=== PATIENT | male | born 1955 | race Caucasian/White ===

== ENCOUNTER → 2021-05-03 | Outpatient (CLI) | payer MEDICARE ==
[~2021-05-03] MED LIST: E-Z-GAS II EFFERVESCENT PACKET (SODIUM BICARB./CITRIC ACID/SIMETHICONE) As Ordered ONE; E-Z-HD 98% w/w 340GM SUSP BTL As Ordered ONE; E-Z-PAQUE 96% w/w SUSP 176GM BTL As Ordered ONE
--- NOTE | 2021-05-03 17:17 | REP ---
INDICATION: GERD, DYSPHAGIA. COMPARISON: None TECHNIQUE: This procedure was performed by ANTHONY Pak, under the direct supervision of Dr. Robbins. Images were reviewed with Dr. Robbins prior to dictation. Liquid barium and gas producing crystals were given in the erect position, as well as liquid barium in the prone oblique position in order to perform a double contrast esophagram examination. 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 The superior mediastinal structures are midline. The heart size is within normal limits. The lungs are clear. The oral stage of deglutition was unremarkable. There is minimal penetration of the barium material into the airway. There is a smooth area of esophageal narrowing on the posterior portion of the esophagus. This area of narrowing is towards the distal end of the cervical hardware plate. 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 There no evidence of a hiatal hernia. There are tertiary contractions persistent throughout the whole examination. This is consistent with presbyesophagus. Due to the tertiary contractions the barium material stayed within the esophagus for an extended period of time. The patient was stood upright at the end of the examination and given a drink of water. This cleared the barium material.. IMPRESSION: Smooth area of esophageal narrowing on the posterior portion of the esophagus at the distal and of the cervical hardware. 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 Tertiary contractions persistent throughout the whole examination consistent with presbyesophagus. Correlate clinically 0.7 minutes of fluoroscopy time was utilized for this procedure. Some fluoroscopic images are performed with last image hold technology. These images require no additional radiation. <Electronically signed by Ju Bangura > 05/03/21 1641 <Electronically signed by Jarett Robbins > 05/03/21 1713
== END ==
LOC: M RAD 08:31
PROVIDERS: ATTEND Physician Assistant Medical
DX: K21.9 Gastro-esophageal reflux disease without esophagitis (principal); R13.10 Dysphagia, unspecified

== ENCOUNTER → 2021-05-14 | Outpatient (CLI) | payer MEDICARE ==
[~2021-05-14] MED LIST changes: +ATOR40TA75; -E-Z-GAS II EFFERVESCENT PACKET (SODIUM BICARB./CITRIC ACID/SIMETHICONE) As Ordered ONE; -E-Z-HD 98% w/w 340GM SUSP BTL As Ordered ONE; -E-Z-PAQUE 96% w/w SUSP 176GM BTL As Ordered ONE; +ENAL20TA11; +GABA-282; +HUMA50IN4; +HUMI40IN2; +HYDR-3910; +JARD1TAB3; +LANTINJ4 SQ; +METO50TA7; +TRUL0.5I; +ZOLO100T
== END ==
LOC: M LABSMTC 10:40
PROVIDERS: ATTEND Anesthesiology
DX: Z01.818 Encounter for other preprocedural examination (principal); Z11.52 Encounter for screening for COVID-19

== ENCOUNTER 2021-05-19 06:24 | Day surgery (SDC) | payer MEDICARE ==
[~2021-05-19] VITALS: Ht 177.8 cm; Wt 100.2 kg
[~2021-05-19 06:24] MED LIST changes: +NS 1,000 ML IV ONE
--- OUTSIDE RECORDS SUMMARY | 2021-05-19 06:28 | CCD ---
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 Name Role Phone Rebeca STATON, Gloria Woo Unavailable [phone] Jane STATON, Mayra Santoro PP [phone] Blayne STATON, Wang T Unavailable Unavailable Janay STATON, [facility] Unavailable Unavailable Reason for Referral No Reason for Referral Recorded Problems Includes: Active, inactive, and resolved Problems All Visits Onset Date - Time Resolved Date - Time Provider Co ndition Status Type 2 Diabetes with Diabetic Polyneuropathy 11/09/2020 - 9:10AM Mayra Lara MD Active Diabetes W/ Renal Manifestations Type 2 Persistent Bienvenido roalbuminuria Associated 11/09/2020 - 9:10AM Mayra Lara MD Active Diabetes Mellitus Type 2 with Hyperglycemia 11/09/2020 - 9:09AM Mayra Lara MD Active Gerd 11/09/2020 - 9:10AM Mayra Lara MD A ctive Hypertensive Kidney Disease Benign 11/09/2020 - 11:12AM Mayra Lara MD Active Ankylosing Spondylitis of Lumbosacral Region 02/27/2020 - 8:14AM Mayra Lara MD Active Diabetes with Diabetic Nephropathy 06/12/2017 - 12:00AM Maria Teresa Elkins ANP-BC Active Note: DM dx 2009 Polyneuropathy 06/01/2016 - 12:00AM Maria Teresa Elkins ANP- BC Active Psoriasis 06/01/2016 - 12:00AM Maria Teresa Elkins ANP-BC Active 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); b/l upper extremities s/p neck fx/surg; disabled Osteoarthritis 07/16/2008 - 12:00AM Angle Huber Shambo RP A Active Note: back; pt states "fusio n" from OA Essential Hypertension Benign 04/19/2004 - 12:00AM Sco matthias Samson MD Active Organic Impotence 07/24/2003 - 12:00AM Angle Mayo Shambo RPA Active Depression 01/07/2002 - 12:00AM Angle Mayo Shambo RPA Active Obesity 01/07/2002 - 12:00AM Angle Huber Shambo RPA Active Psoriatic Arthropathy 01/07/2002 - 12:00AM Angle Huber Sh ambo RPA Inactive Note: Enbrel in past; Humira started 2009 Psoriasis Arthropathic 01/07/2002 - 12:00AM Tyler Cancino MD Active Note: r/u [place] Diabetes Mellitus Type 2 - Uncomplicated, Uncontrolled 2 - 12:00AM Maria Teresa Elkins ANP-BC Inactive Note: started rx 2008 Plan of Treatment Future Appointments Date Time Location Provider followup 02/28/2021 8:15AM [facility] Mayra Lara MD Future Tests Order Diagnosis Results Due Ordering Provid er Lab A1C 02/28/21 Mayra quinones MD Lab CMP 02/28/21 Mayra quinones MD Findings Encounter Date Education and counseling Age and gender specific counceling on preventative health discussed with the patient using USPTF and/or ACP guidlines on health maintenance and screening ANNUAL PE-followup with Mayra Lara MD 09/03/2020 Education and counseling Age and gender specific counceling on preventative health discussed with the patient using USPTF and/or ACP guidlines on health maintenance and screening followup with Mayra Lara MD 11/28/2019 Education and counseling Age and gender specific counceling on preventative health discussed with the patient using USPTF and/or ACP guidlines on health maintenance and screening followup with Mayra Lara MD 08/29/2019 Education and counseling Age and gender specific counceling on preventative health discussed with the patient using USPTF and/or ACP guidlines on health maintenance and screening followup with Maria Teresa FLANNERY- 06/01/2016 Assessments Includes: Assessments for all patient encounters Findings Encounter Date Acute renal failure which is showing con tinued signs of disease improved s/p discontinuation of naproxen and metformin. BUN trending up to 29 again today. Will work on glucose control, continue to monitor [Acute kidney failure, unspecified] followup with Mayra Lara MD 11/30/2020 Ankylosing lumbosacral spondylitis which is inadequately controlled On gabapentin TID [Ankylosing spondylitis of lumbosacral region] followup with Mayra Lara MD 11/30/2020 Arthropathic psoriasis which is stable On Humira every 2 weeks- which has helped both with pain and psoriasis rash. Follows with Dr. Gustafson in [place] [Arthropathic psoriasis, unspecified] followup with Mayra Lara MD 11/30/2020 Benign essential hypertension which is s table On enalapril, hydralazine, and metoprolol [Essential (primary) hypertension] followup with Mayra Lara MD 11/30/2020 Depression which is stable Stable on se rtraline 100 mg daily, continues to stay as active as possible [Major depressive disorder, single episode, unspecified] followup with Mayra Lara MD 11/30/2020 Diabetes with diabetic nephropathy which is inadequately controlled A1c improving from 10.3 to 10 s/p increase in jardiance dose. Metformin previously discontinued due to acute renal failure. Lantus 50 units HS, will increase to 55 units HS. Continue Trulicity, Jardiance, Continue diabetic diet. Follow-up in 3 months [Other specified diabetes mellitus with diabetic nephropathy] followup with Mayra Lara MD 11/30/2020 Esophageal reflux which is worsening no w interfering with every meal, regurgitation of mucus with every meal. Start pantoprazole 40mg daily [Gastro- esophageal reflux disease without esophagitis] followup with Mayra Lara MD 11/30/2020 Hyperlipidemia which is stable Stable, continue simvastatin [Hyperlipidemia, unspecified] followup with Mayra Lara MD 11/30/2020 Lumbago with sciatica which is inadequat nevaeh controlled [Lumbago with sciatica, left side] followup with Mayra Lara MD 11/30/2020 Male erectile dysfunction which is stabl e Following with urology [Other male erectile dysfunction] followup with Mayra Lara MD 11/30/2020 Polyneuropathy which is inadequately con trolled On gabapentin to 300mg PO TID [Polyneuropathy, unspecified] followup with Mayra Lara MD 11/30/2020 Routine senior citizen history and physi leo (65-80 yrs) [Encounter for general adult medical examination without abnormal findings] ANNUAL PE-followup exam with Mayra Lara MD 09/03/2020 Acute renal failure which is resolved s /p discontinuation of naproxen and metformin [Acute kidney failure, unspecified] followup with Mayra Lara MD 09/03/2020 Ankylosing lumbosacral spondylitis which is inadequately controlled Burning pain in legs worsening. Discussed pain management options, increase gabapentin from BID to TID [Ankylosing spondylitis of lumbosacral region] followup with Mayra Lara MD 09/03/2020 Arthropathic psoriasis which is stable On Humira every 2 weeks- which has helped both with pain and psoriasis rash. Follows with Dr. Gustafson in [place] [Arthropathic psoriasis, unspecified] followup with Mayra Lara MD 09/03/2020 Benign essential hypertension which is s table On enalapril, hydralazine, and metoprolol [Essential (primary) hypertension] followup with Mayra Lara MD 09/03/2020 Depression which is stable Stable on se rtraline 100 mg daily, continues to stay as active as possible [Major depressive disorder, single episode, unspecified] followup with Mayra Lara MD 09/03/2020 Diabetes with diabetic nephropathy which is inadequately controlled A1c trending up from 8.2 to 10.3 s/p discontinuation of metformin. Lantus 50 units HS. Continue Trulicity, increase Jardiance from 10 to 25mg daily, Continue diabetic diet. Follow-up in 3 months [Other specified diabetes mellitus with diabetic nephropathy] followup with Mayra Lara MD 09/03/2020 Esophageal reflux which is stable decli ketty medication at this time [Gastro- esophageal reflux disease without esophagitis] followup with Mayra Lara MD 09/03/2020 Hyperlipidemia which is stable Stable, continue simvastatin [Hyperlipidemia, unspecified] followup with Mayra Lara MD 09/03/2020 Lumbago with sciatica which is inadequat nevaeh controlled No improvement with exercises or gabapentin. Discussed option for pain management, declines at this time [Lumbago with sciatica, left side] followup with Mayra Lara MD 09/03/2020 Male erectile dysfunction which is stabl e Following with urology [Other male erectile dysfunction] followup with Mayra Lara MD 09/03/2020 Polyneuropathy which is inadequately con trolled On gabapentin to 300mg PO BID, increase to TID [Polyneuropathy, unspecified] followup with Mayra Lara MD 09/03/2020 Routine senior citizen history and physical (65-80 yrs ) [facility] Annual Wellness SUBSEQUENT visi t(> 1yr since prev. with Mayra Lara MD 09/03/2020 Acute renal failure which is improving BUN trending down to 21 from 29 s/p discontinuation of naproxen and metformin [Acute kidney failure, unspecified] followup with Mayra Lara MD 06/01/2020 Ankylosing lumbosacral spondylitis which is inadequately controlled Burning pain in legs worsening. Discussed pain management options, increase gabapentin from BID to TID [Ankylosing spondylitis of lumbosacral region] followup with Mayra Lara MD 06/01/2020 Arthropathic psoriasis which is stable On Humira every 2 weeks [Arthropathic psoriasis, unspecified] followup with Mayra Lara MD 06/01/2020 Depression which is stable Stable on se rtraline 100 mg daily, continues to stay as active as possible [Major depressive disorder, single episode, unspecified] followup with Mayra Lara MD 06/01/2020 Diabetes with diabetic nephropathy which is stable A1c trending up from 7.5 to 8.2 s/p discontinuation of metformin. Increase Lantus from 45 to 50 units HS. Continue Trulicity, Jardiance, Continue diabetic diet [Other specified diabetes mellitus with diabetic nephropathy] followup with Mayra Lara MD 06/01/2020 Male erectile dysfunction which is stabl e Following with urology [Other male erectile dysfunction] followup with Mayra Lara MD 06/01/2020 Polyneuropathy which is inadequately con trolled On gabapentin to 300mg PO BID, increase to TID [Polyneuropathy, unspecified] followup with Mayra Lara MD 06/01/2020 Acute esophagitis which is stable prevo iusly tried famotidine without relief in symptoms. Difficulty swallowing may be secondary to reflux, however he declines trail of PPI today. Advised chewing food completely and drinking fluids throughout meal [Esophagitis, unspecified] followup with Mayra Lara MD 04/02/2020 Acute renal failure BUN elevated at 30 last visit, stopped naproxen, now BUN 29. Will stop metformin and repeat BMP in 2 months. Discussed pain management options to replace naproxen, patient to consider [Acute kidney failure, unspecified] followup with Mayra Lara MD 04/02/2020 Ankylosing lumbosacral spondylitis which is inadequately controlled Burning pain in legs worsening. Discussed pain management options, patient to consider [Ankylosing spondylitis of lumbosacral region] followup with Mayra Lara MD 04/02/2020 Arthropathic psoriasis which is stable On Humira every 2 weeks- which has helped both with pain and psoriasis rash. Currently following with Dr. Gustafson in [place], requests referral to Dr. Bethea today as he is not happy with the care he is receiving in [place]. [Arthropathic psoriasis, unspecified] followup with Mayra Lara MD 04/02/2020 Benign essential hypertension which is s table BP stable. On enalapril, hydralazine, and metoprolol [Essential (primary) hypertension] followup with Mayra Lara MD 04/02/2020 Depression which is stable Stable on se rtraline 100 mg daily, continues to stay as active as possible [Major depressive disorder, single episode, unspecified] followup with Mayra Lara MD 04/02/2020 Diabetes with diabetic nephropathy which is stable Last a1c 7.5. On Trulicity, metformin, Jardiance, 45 units of Lantus insulin. DC metformin due to renal impairment. Continue diabetic diet. Repeat A1c in two months [Other specified diabetes mellitus with diabetic nephropathy] followup with Mayra Lara MD 04/02/2020 Diarrhea Continue loperamide. Will gayathri elkins for improvement in symptoms with discontinuation of metformin. Discussed probiotic, metamucil, pepto bismol [Diarrhea, unspecified] followup with Mayra Lara MD 04/02/2020 Hyperlipidemia which is stable Stable, continue simvastatin [Hyperlipidemia, unspecified] followup with Mayra Lara MD 04/02/2020 Lumbago with sciatica which is inadequat nevaeh controlled No improvement with exercises or gabapentin. Discussed option for pain management, patient to consider [Lumbago with sciatica, left side] followup with Mayra Lara MD 04/02/2020 Male erectile dysfunction which is stabl e Following with urology [Other male erectile dysfunction] followup with Mayra Lara MD 04/02/2020 Polyneuropathy which is inadequately con trolled On gabapentin to 300mg PO BID, has previously declined increase in dose [Polyneuropathy, unspecified] followup with Mayra Lara MD 04/02/2020 Acute esophagitis which is stable prevo iusly tried famotidine without relief in symptoms. Difficulty swallowing may be secondary to reflux, however he declines trail of PPI today. Advised chewing food completely and drinking fluids throughout meal [Esophagitis, unspecified] followup with Mayra Lara MD 02/27/2020 Acute renal failure BUN progressively t rending up to 30 today, advised discontinuation of naproxen. Repeat BMP in 1 month. Discussed pain management options to replace naproxen, patient to consider [Acute kidney failure, unspecified] followup with Mayra Lara MD 02/27/2020 Ankylosing lumbosacral spondylitis which is inadequately controlled Burning pain in legs worsening. Discussed pain management options, patient to consider [Ankylosing spondylitis of lumbosacral region] followup with Mayra Lara MD 02/27/2020 Arthropathic psoriasis which is stable On Humira every 2 weeks- which has helped both with pain and psoriasis rash. Follows with Dr. Gustafson in [place] [Arthropathic psoriasis, unspecified] followup with Mayra Lara MD 02/27/2020 Benign essential hypertension which is s table BP stable. On enalapril, hydralazine, and metoprolol [Essential (primary) hypertension] followup with Mayra Lara MD 02/27/2020 Depression which is stable Stable on se rtraline 100 mg daily, continues to stay as active as possible [Major depressive disorder, single episode, unspecified] followup with Mayra Lara MD 02/27/2020 Diabetes with diabetic nephropathy which is stable hemoglobin A1c trending down from 7.9 to 7.5. On Trulicity, Lantus, metformin, Jardiance, on 45 units of Lantus insulin. Continue diabetic diet. Repeat A1c in three months [Other specified diabetes mellitus with diabetic nephropathy] followup with Mayra Lara MD 02/27/2020 Hyperlipidemia which is stable Stable, continue simvastatin [Hyperlipidemia, unspecified] followup with Mayra Lara MD 02/27/2020 Lumbago with sciatica which is inadequat nevaeh controlled No improvement with exercises or gabapentin. Discussed option for pain management, patient to consider [Lumbago with sciatica, left side] followup with Mayra Lara MD 02/27/2020 Male erectile dysfunction which is stabl e Following with urology [Other male erectile dysfunction] followup with Mayra Lara MD 02/27/2020 Polyneuropathy which is inadequately con trolled On gabapentin to 300mg PO BID, declines increase in dose today [Polyneuropathy, unspecified] followup with Mayra Lara MD 02/27/2020 Acute esophagitis which is stable prevo iusly tried famotidine without relief in symptoms. Difficulty swallowing may be secondary to reflux, however he declines trail of PPI today. Advised chewing food completely and drinking fluids throughout meal [Esophagitis, unspecified] followup with Mayra Lara MD 11/28/2019 Arthropathic psoriasis which is stable On Humira every 2 weeks- which has helped both with pain and psoriasis rash. Follows with Dr. Gustafson in [place] [Arthropathic psoriasis, unspecified] followup with Mayra Lara MD 11/28/2019 Benign essential hypertension which is s table BP stable. On enalapril, hydralazine, and metoprolol [Essential (primary) hypertension] followup with Mayra Lara MD 11/28/2019 Depression which is stable Stable on se rtraline 100 mg daily, continues to stay as active as possible [Major depressive disorder, single episode, unspecified] followup with Mayra Lara MD 11/28/2019 Diabetes with diabetic nephropathy which is stable hemoglobin A1c trending up from 7.2 to 7.9. On Trulicity, Lantus, metformin, Jardiance, on 45 units of Lantus insulin. Counseled regarding diabetic diet. Will keep regimen the same at this time due to adequate fasting glucose levels and continued weight loss. Repeat A1c in three months [Other specified diabetes mellitus with diabetic nephropathy] followup with Mayra Lara MD 11/28/2019 Hyperlipidemia which is stable Stable, continue simvastatin [Hyperlipidemia, unspecified] followup with Mayra Lara MD 11/28/2019 Lumbago with sciatica which is inadequat nevaeh controlled No improvement with exercises or gabapentin. Discussed option for pain management, patient to consider [Lumbago with sciatica, left side] followup with Mayra Lara MD 11/28/2019 Male erectile dysfunction which is stabl e Following with urology [Other male erectile dysfunction] followup with Mayra Lara MD 11/28/2019 Polyneuropathy which is stable On gabap entin to 300mg PO BID [Polyneuropathy, unspecified] followup with Mayra Lara MD 11/28/2019 Acute esophagitis , initiated famotidine , having burning into chest which wakes him up occasionally followup with Mayra Lara MD 08/29/2019 Arthropathic psoriasis On Humira every 2 weeks- which has helped both with pain and psoriasis rash. Follows with Dr. Gustafson in [place] [Arthropathic psoriasis, unspecified] followup with Mayra Lara MD 08/29/2019 Benign essential hypertension BP stable . Has discontinued drinking coffee altogether. On enalapril, hydralazine, and metoprolol [Essential (primary) hypertension] followup with Mayra Lara MD 08/29/2019 Depression Stable on sertraline 100 mg daily, continues to stay as active as possible [Major depressive disorder, single episode, unspecified] followup with Mayra Lara MD 08/29/2019 Diabetes with diabetic nephropathy hemo globin A1c continues to trend down to 7.2. On Trulicity, Lantus, metformin, Jardiance, has tapered down from 71 units to 50 units of Lantus insulin. Due to reported low fasting glucose levels, will continue to titrate lantus down to 45 units HS. Doing better with diabetic diet. Repeat A1c in three months [Other specified diabetes mellitus with diabetic nephropathy] followup with Mayra Lara MD 08/29/2019 Hyperlipidemia Stable, continue simvastatin [Hyperlip idemia, unspecified] followup with Mayra Lara MD 08/29/2019 Lumbago with sciatica No improvement wi th exercises or gabapentin. Discussed option for pain management, patient to consider [Lumbago with sciatica, left side] followup with Mayra Lara MD 08/29/2019 Male erectile dysfunction Following wit h urology [Other male erectile dysfunction] followup with Mayra Lara MD 08/29/2019 Polyneuropathy On gabapentin to 300mg P O BID with minimal relief [Polyneuropathy, unspecified] followup with Mayra Lara MD 08/29/2019 No tobacco use Annual Wellness SUBSEQUEN T visi t(> 1yr since prev. with Mayra Lara MD 08/29/2019 Routine senior citizen history and physi leo (65-80 yrs) [Encounter for general adult medical examination without abnormal findings] Annual Wellness SUBSEQUENT visi t(> 1yr since prev. with Mayra Lara MD 08/29/2019 Acute esophagitis , initiated famotidine , having burning into chest which wakes him up occasionally incident to previous visit- with Lalit Elkins PA-C 05/30 Diabetes with diabetic nephropathy , has had several lows and A1c has improved greatly from 8.8 to 7.3 to the point where decreasing his lantus is recommended. He will decrease by a unit a day until his morning blood sugars are in a range he is comforable with. he has had a couple of lows but not daily. He will adjust his lantus based on morning blood sugars, aiming for 130-150 area incident to previous visit- with Lalit Elkins PA-C 05/30/2019 Arthropathic psoriasis Is receiving Hum shantel every 2 weeks- which has helped both with pain and psoriasis rash. Follows with Dr. Gustafson in [place] [Arthropathic psoriasis, unspecified] followup with Mayra Lara MD 02/28/2019 Benign essential hypertension BP elevat ed today. Patient attributes this to the 6 cups of coffee he had this AM. On enalapril, hydralazine, and metoprolol. Continue to monitor, if persistently elevated will titrate antihypertensive regimen [Essential (primary) hypertension] followup with Mayra Lara MD 02/28/2019 Depression Patient attributes depressio n to limited abilities secondary to pain and nerve issues. On sertraline 100 mg daily, reports has more difficulty with depression during the winter months and rainy dark days, continues to stay as active as possible [Major depressive disorder, single episode, unspecified] followup with Mayra Lara MD 02/28/2019 Diabetes with diabetic nephropathy - he moglobin A1c 8.8. On Trulicity, Lantus, metformin, taking 71 units of Lantus insulin. Agreeable to starting Jardiance therapy. Counseling and education provided regarding diabetic diet. Doing better with diabetic diet. Repeat A1c in three months [Other specified diabetes mellitus with diabetic nephropathy] followup with Mayra Lara MD 02/28/2019 Hyperlipidemia Stable, continue simvastatin [Hyperlip idemia, unspecified] followup with Mayra Lara MD 02/28/2019 Lumbago with sciatica No improvement wi th exercises or gabapentin. Discussed option for pain management, patient to consider [Lumbago with sciatica, left side] followup with Mayra Lara MD 02/28/2019 Male erectile dysfunction evaluated by urology, started cialis which he has not found to help [Other male erectile dysfunction] followup with Mayra Lara MD 02/28/2019 Polyneuropathy On gabapentin to 300mg P O BID with minimal relief [Polyneuropathy, unspecified] followup with Mayra Lara MD 02/28/2019 Arthropathic psoriasis Is receiving Hum shantel every 2 weeks- which has helped both with pain and psoriasis rash. Follows with Dr. Gustafson in [place] [Arthropathic psoriasis, unspecified] followup with Mayra Lara MD 12/02/2018 Benign essential hypertension Stable on enalapril, hydralazine, and metoprolol [Essential (primary) hypertension] followup with Mayra Lara MD 12/02/2018 Depression Stable on sertraline 100 mg daily, reports has more difficulty with depression during the winter months and rainy dark days, continues to stay as active as possible [Major depressive disorder, single episode, unspecified] followup with Mayra Lara MD 12/02/2018 Diabetes with diabetic nephropathy - he moglobin A1c 8.8, repeat level pending today. On Trulicity, Lantus, metformin, taking 71 units of Lantus insulin. Declines Jardiance therapy. Counseling and education provided regarding diabetic diet. Doing better with diabetic diet. Repeat A1c in three months [Other specified diabetes mellitus with diabetic nephropathy] followup with Mayra Lara MD 12/02/2018 Hyperlipidemia Stable, continue simvastatin [Hyperlip idemia, unspecified] followup with Mayra Lara MD 12/02/2018 Lumbago with sciatica Exercise handout provided today [Lumbago with sciatica, left side] followup with Mayra Lara MD 12/02/2018 Male erectile dysfunction Refer to bruce dhillon for further evaluation and treatment [Other male erectile dysfunction] followup with Mayra Lara MD 12/02/2018 Polyneuropathy Improving with gabapenti n to 300mg PO BID [Polyneuropathy, unspecified] followup with Mayra Lara MD 12/02/2018 Arthropathic psoriasis Is receiving Hum shantel every 2 weeks- which has helped both with pain and psoriasis rash. Follows with Dr. Gustafson in [place] [Arthropathic psoriasis, unspecified] followup with Mayra Lara MD 08/28/2018 Benign essential hypertension Stable on enalapril, hydralazine, and metoprolol [Essential (primary) hypertension] followup with Mayra Lara MD 08/28/2018 Depression Stable on sertraline 100 mg daily, reports has more difficulty with depression during the winter months and rainy dark days, continues to stay as active as possible [Major depressive disorder, single episode, unspecified] followup with Mayra Lara MD 08/28/2018 Diabetes with diabetic nephropathy - he moglobin A1c slightly improved to 8.8, patient is taking Trulicity, Lantus, metformin, taking 71 units of Lantus insulin. Declines Jardiance therapy. Counseling and education provided regarding diabetic diet. Patient would like to try some dietary changes as he does still eat candy and potatoe chips often. Will work on cutting out sweets over the next three months. Counseling provided regarding increasing ACR. Repeat A1c and ACR in three months [Other specified diabetes mellitus with diabetic nephropathy] followup with Mayra Lara MD 08/28/2018 Hyperlipidemia Stable, continue simvastatin [Hyperlip idemia, unspecified] followup with Mayra Lara MD 08/28/2018 Male erectile dysfunction Was taking ci susan 5mg PO daily, however was experiencing rhinorrhea. He stopped cialis daily and rhinorrhea resolved. Discussed taking 10mg PO prn 30 minutes prior to anticipated sexual activity. Also discussed that better glucose control may help with ED symptoms [Other male erectile dysfunction] followup with Mayra Lara MD 08/28/2018 Polyneuropathy Improving, however still bothersome, will increase gabapentin to 300mg PO BID [Polyneuropathy, unspecified] followup with Mayra Lara MD 08/28/2018 No tobacco use Annual Wellness SUBSEQUEN T visi t(> 1yr since prev. with Mayra Lara MD 08/28/2018 Routine adult history and physical (18 - 64 yrs) [Encounter for general adult medical examination with abnormal findings] Annual Wellness SUBSEQUENT visi t(> 1yr since prev. 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 every 2 weeks- which has helped both with pain and psoriasis rash followup with Maria Teresa Elkins [facility] 06/11/2018 Benign essential hypertension -Blood pr essure well controlled with enalapril, hydralazine, and metoprolol followup with Maria Teresa Elkins [facility] 06/11/2018 Depression -Continue with sertraline 10 0 mg daily, reports has more difficulty with depression during the winter months and rainy dark days, continues to stay as active as possible followup with Maria Teresa Elkins [facility] 06/11/2018 Diabetes with diabetic nephropathy - he moglobin A1c slightly improved to 9.0, patient is taking Trulicity, Lantus, metformin, . Never started Jardiance 10 mg 1 tablet daily as recommended, taking 71 units of Lantus insulin followup with Maria Teresa Elkins [facility] 06/11/2018 Hyperlipidemia -Lipids are excellent in 09/02, continu e simvastatin followup with Maria Teresa Elkins [facility] 06/11/2018 Polyneuropathy Taking gabapentin 100 mg twice daily, will increase to 2 tabs at bedtime to see if legs are more comfortsble followup with Maria Teresa Elkins [facility] 06/11/2018 Acute upper respiratory infection with some features of allergies. Start saline nasal spray at least twice daily, continue with claritin daily. Start ceftin 250mg 1 tab twice daily. Will obtain chest xray, currently being treated for pneumonia, he had some rhonchi remaining after cough sick visit with Maria Teresa M [facility] 04/25/2018 Arthropathic psoriasis Is receiving Hum shantel every 2 weeks- which has helped both with pain and psoriasis rash followup with Maria Teresa Thu [facility] 03/05/2018 Benign essential hypertension -Blood pr essure well controlled with enalapril, hydralazine, and metoprolol followup with [facility] 03/05/2018 Depression -Continue with sertraline 10 0 mg daily, reports has more difficulty with depression during the winter months and rainy dark days, continues to stay as active as possible followup with [facility] 03/05/2018 Diabetes with diabetic nephropathy - he moglobin A1c slightly improved to 9.0, patient is taking Trulicity, Lantus, metformin, and Prandin. AddedJardiance 10 mg 1 tablet daily to regimen 3 weeks ago, has not yet started this medication, taking 71 units of Lantus insulin followup with [facility] 03/05/2018 Hyperlipidemia -Lipids are excellent in 09/02, continu e simvastatin followup with [facility] 03/05/2018 Polyneuropathy Taking gabapentin 100 mg twice daily which has helped with discomfort followup with [facility] 03/05/2018 Constipation Patient recommended to use MiraLAX 1/2-1 capful daily, patient to titrate according to need. Recommend he try to avoid frequent use of laxatives sick visit with Maria Teresa Thu [facility] 02/12/2018 Peripheral neuropathy Related to diabet es and prior back injuries. Patient currently is taking Percocet 1 tablet at bedtime, and Aleve at least 1 tablet daily, rates his pain when sitting as 5/10. Discussed physical therapy with patient especially balance therapy, patient will consider. Possibly consider pain clinic, patient indicates pain is improving slowly since his falls sick visit with Maria Teresa Thu [facility] 02/12/2018 Arthropathic psoriasis Is receiving Hum shantel every 2 weeks- which has helped both with pain and psoriasis rash followup with Maria Teresa M [facility] 12/06/2017 Benign essential hypertension -Blood pr essure well controlled with enalapril, hydralazine, and metoprolol followup with Maria Teresa [facility] 12/06/2017 Depression -Continue with sertraline 10 0 mg daily, reports has more difficulty with depression during the winter months and rainy dark days, continues to stay as active as possible followup with Maria Teresa Thu [facility] 12/06/2017 Diabetes with diabetic nephropathy - he moglobin A1c has worsened to 9.4, patient is taking Trulicity, Lantus, metformin, and Prandin. Will add Jardiance 10 mg 1 tablet daily to regimen followup with Maria Teresa Andino [facility] 12/06/2017 Hyperlipidemia -Lipids are excellent in 09/02, continu e simvastatin followup with [facility] 12/06/2017 Polyneuropathy Taking gabapentin 100 mg twice daily which has helped with discomfort followup with [facility] 12/06/2017 Arthropathic psoriasis Is receiving Hum shantel every 2 weeks- which has helped both with pain and psoriasis rash followup with [facility] 08/24/2017 Benign essential hypertension -Blood pr essure well controlled with enalapril, hydralazine, and metoprolol followup with [facility] 08/24/2017 Depression -Continue with sertraline 10 0 mg daily, reports has a bit more difficulty with depression during the winter months, continues to stay as active as possible followup with Maria Teresa Thu [facility] 08/24/2017 Diabetes with diabetic nephropathy -Res tarted Prandin therapy, hemoglobin A1c improved from 9.5-8.6, patient is taking Trulicity, Lantus, metformin, and Prandin. Patient thinks he can improve hemoglobin A1c with diet and would like to try to do so followup with Maria Teresa M [facility] 08/24/2017 Hyperlipidemia -Lipids are excellent, continue simvas tatin followup with [facility] 08/24/2017 Polyneuropathy Taking gabapentin 100 mg twice daily which has helped with discomfort followup with [facility] 08/24/2017 Arthropathic psoriasis Is receiving Hum shantel every 2 weeks-rash essentially resolved with this medication, holds also with discomfort followup with Maria Teresa M [facility] 06/12/2017 Benign essential hypertension -Blood pr essure well controlled with enalapril, hydralazine, and metoprolol followup with Maria Teresa M [facility] 06/12/2017 Depression -Continue with sertraline 10 0 mg daily, reports has a bit more difficulty with depression during the winter months, feels he is handling it okay, states he will not allow himself to feel sorry about his health, continues to stay as active as possible followup with Maria Teresa Andino [facility] 06/12/2017 Diabetes with diabetic nephropathy Hemo globin A1c has worsened from 8.2 in 11/29 to 9.5, last microalbumin in 09/01 was 72. Spoke with pt who would rather restart Prandin 0.5 mg with meals as before and see if this will improve glucoses. Followup in 3 months followup with Maria Teresa M [facility] 06/12/2017 Hyperlipidemia Will recheck at next appointment, not fasting today followup with Maria Teresa Andino [facility] 06/12/2017 Polyneuropathy Taking gabapentin 100 mg twice daily which has helped with discomfort followup with [facility] 06/12/2017 No tobacco use never smoked Annual Wellness SUBSEQ UENT visi t(> 1yr since prev. with Maria Teresa [facility] 06/12/2017 Routine adult history and physical (18 - 64 yrs) An nual Wellness SUBSEQUENT visi t(> 1yr since prev. with [facility] 06/12/2017 Arthropathic psoriasis Is receiving Hum shantel every 2 weeks-rash essentially resolved with this medication followup with Maria Teresa M [facility] 12/12/2016 Benign essential hypertension -blood pr essure is elevated today, pt reports he forgot to take his medications this am followup with Maria Teresa Andino [facility] 12/12/2016 Depression -Continue with sertraline 10 0 mg daily, reports has a bit more difficulty with depression during the winter months, feels he is handling it okay, but constant rain has been very difficult followup with Maria Teresa M [facility] 12/12/2016 Polyneuropathy Taking gabapentin 100 mg once daily which has helped with discomfort, will increase to 100mg twice daily to decrease discomfort followup with Maria Teresa M [facility] 12/12/2016 Pure hypercholesterolemia -lipids stable in - fol lowup with Maria Teresa [facility] 12/12/2016 Type 2 diabetes mellitus - uncomplicated , uncontrolled -Hemoglobin A1c has improved from 9.2 to 8.2 on Trulicity dose to 1.5 mg subcutaneously once weekly. Admits to some dietary indiscretions and will work on those, is generally more active in the summer, has not been because of the increased rain followup with Maria Teresa Elkins [facility] 12/12/2016 Arthropathic psoriasis Is receiving Hum shantel every 2 weeks-he has improved with this medication followup with Maria Teresa Elkins [facility] 08/31/2016 Benign essential hypertension Stable followup with Maria Teresashahab Elkins [facility] 08/31/2016 Depression -Continue with sertraline 10 0 mg daily, reports has a bit more difficulty with depression during the winter months, feels she is handling it okay and looking forward to longer daylight hours followup with Maria Teresa Elkins [facility] 08/31/2016 Polyneuropathy Taking gabapentin 100 mg once daily which has helped with discomfort followup with Maria Teresa Elkins [facility]- 08/31/2016 Psoriasis Has improved with Humira injections followu p with Maria Teresa Elkins [facility] 08/31/2016 Pure hypercholesterolemia followup with Maria Teresashahab Elkins [facility] 08/31/2016 Type 2 diabetes mellitus - uncomplicated , uncontrolled -Hemoglobin A1c has improved from 9.6 to 9.2. Will increase Trulicity dose to 1.5 mg subcutaneously once weekly. Indicates he has been more inactive through the winter because of his balance and falling, will also try to make improvements in diet followup with Maria Teresa Elkins [facility] 08/31/2016 Arthropathic psoriasis Is receiving Hu' ramona every 2 weeks-he has improved with this medication followup with Maria Teresa Elkins [facility] 06/01/2016 Benign essential hypertension followup with Maria Teresa [facility] 06/01/2016 Depression -Depression score was high a t 15, counseling services offered, he did not want to increase or change medication followup with Maria Teresa Elkins [facility] 06/01/2016 Palpitations Describes pounding pulse, discussed Holter monitor, patient would like to wait for now. He's not aware of skipped beats. Will check thyroid followup with Maria Teresa Elkins [facility] 06/01/2016 Polyneuropathy Patient has decrease kristi apentin 200 mg once daily, for intermittent jabbing generalized discomfort. He will increase gabapentin to 100 mg twice daily followup with Maria Teresa Elkins [facility] 06/01/2016 Pruritus Behind the left ear, uncertain of cause, skin is somewhat dry. He will apply skin moisturizer to see if this improves followup with Maria Teresa Andino Severo [facility] 06/01/2016 Pure hypercholesterolemia followup with Maria Teresa Salaser [facility] 06/01/2016 Type 2 diabetes mellitus - uncomplicated, uncontrolled -Hemoglobin A1c is 9.6 followup with Maria Teresa Andino Severo [facility] 06/01/2016 No tobacco use Annual Wellness SUBSEQUEN T visi t(> 1yr since prev. with Maria Teresa Salaser [facility] 06/01/2016 Routine adult history and physical (18 - 64 yrs) An nual Wellness SUBSEQUENT visi t(> 1yr since prev. with Maria Teresa Andino Severo [facility] 06/01/2016 Arthropathic psoriasis fair control. Seeing Rheumato logy followup with Tyler Samson MD 12/02/2015 Benign essential hypertension good control followup with Сергей Samson MD 12/02/2015 Hypercholesterolemia followup with Tyler Samson MD 12/02/19 16 Type 2 diabetes mellitus - uncomplicated, controlled Sugars still running high followup with Tyler Samson MD 12/02/2015 Type 2 diabetes mellitus - uncomplicated, controlled f ollowup with Tyler Samson MD 06/03/2015 Benign essential hypertension followup with Tyler Samson MD 03/11/2015 Hypercholesterolemia followup with Tyler Samson MD 03/11/20 15 Type 2 diabetes mellitus - uncomplicated, uncontrolled followup with Tyler Samson MD 03/11/2015 Type 2 diabetes mellitus - uncomplicated, controlled f ollowup with Tyler Samson MD 11/30/2014 Type 2 diabetes mellitus - uncomplicated, uncontrolled followup with Harshad Menjivar MD 09/02/2014 Type 2 diabetes mellitus - uncomplicated, uncontrolled followup with Harshad Menjivar MD 08/04/2014 Assessment of monoplegia was seen new patient with Angle Huber Shambo [facility] 07/03/2014 Depression new patient with Angle J Shambo [facility] Hypercholesterolemia new patient with Angle J Shambo [facility] Obesity new patient with Angle J Shambo [facility] Type 2 diabetes mellitus - uncomplicated, uncontrolled new patient with Angle J Shambo [facility] 07/03/2014 Instructions Instructions not supported for this document typeNo Instructions Recorded Medical Equipment - Implanted Devices Includes: Current and historical DevicesNo Medical Equipment Recorded Medications Includes: Current and historical Medications Current Medications (continue as prescribed) Pantoprazole Sodium 40 MG Oral Tablet Delayed Release 2020 Provider: Mayra Lara MD Diagnosis: 1 PO QD Diclofenac Sodium 1% External Gel 10/20/2020 Provid er: Diagnosis: Merrill Lite Test In Vitro Strip 09/13/2020 Provi olga: Lalit Elkins PA-C Diagnosis: as directed. Tests QD and prn Dx- E13.21 Jardiance 25 MG Oral Tablet 09/03/2020 Provider: Mayra Lara MD Diagnosis: 1 PO QD Gabapentin 300 MG Oral Capsule 09/03/2020 Provider: Mayra Lara MD Diagnosis: 1 PO TID Simvastatin 10 MG OR TABS 06/12/2020 - 06/07/2021 Provider: Lalit Elkins PA-C Diagnosis: TAKE ONE TABLET BY MOUTH EVERY DAY Metoprolol Tartrate 50 MG OR TABS 06/12/2020 - 06/07/2021 Pr ovider: Lalit Elkins PA-C Diagnosis: TAKE 1 & 1/2 TABLETS BY MOUTH TWO TIMES A DAY Lantus SoloStar 100 UNIT/ML Subcutaneous Solution Pen-inject or 04/14/2020 Provider: Mayra Lara MD Diagnosis: Type 2 diabetes paul itus with hyperglycemia inject 71units sc qd Lantus 100 UNIT/ML Subcutaneous Solution 04/13/2020 Provider: Mayra Lara MD Diagnosis: Type 2 diabetes paul itus with hyperglycemia as directed 71U ac qd Enalapril Maleate 20 MG Oral Tablet 03/17/2020 Prov ider: Mayra Lara MD Diagnosis: Essential (primary) hypertension TAKE ONE TABLET BY MOUTH TWICE A DAY Sertraline HCl 100 MG Oral Tablet 03/17/2020 Provid er: Mayra Lara MD Diagnosis: TAKE ONE TABLET BY MOUTH EVERY DAY hydrALAZINE HCl 25 MG Oral Tablet 03/17/2020 Provid er: Mayra Lara MD Diagnosis: Essential (primary) hypertension TAKE ONE TABLET BY MOUTH TWICE A DAY Trulicity 1.5 MG/0.5ML Subcutaneous Solution Pen-injector Provider: Mayra Lara MD Diagnosis: inject subcutaneously once weekly BD Pen Needle Mini U/F 31G X 5 MM Miscellaneous 12/24/2019 Provider: Mayra Lara MD Diagnosis: Other specified diab etes mellitus without complications Use 1 needle daily with Lantus pen. Dx:E13.9 FreeStyle [place]ets [facility] [place] Provider: Harshad Menjivar MD Diagnosis: DM,adult onset TYPE II unspecified type.uncontrolled Test Daily and PRN Dx:250.02 Humira 40 MG/0.8ML SC KIT 07/03/2014 Provider: Diagnosis: 40 mg SC Q 2 weeks Past Medications on file Gabapentin 300 MG Oral Capsule 08/26/2020 - 09/03/2020 Provi olga: Mayra Lara MD Diagnosis: 1 PO TID Gabapentin 300 MG Oral Capsule 06/14/2020 - 06/01/2020 Provi olga: Lalit Elkins PA-C Diagnosis: 1 cap po bid Gabapentin 300 MG Oral Capsule 06/01/2020 - 06/14/2020 Provi olga: Mayra Lara MD Diagnosis: 1 PO TID metFORMIN HCl 1000 MG Oral Tablet 03/17/2020 - 04/02/2020 Pr ovider: Mayra Lara MD Diagnosis: Type 2 diabetes paul itus without complications TAKE ONE TABLET BY MOUTH TWICE A DAY Jardiance 10 MG Oral Tablet 12/25/2019 - 09/03/2020 Provider : Mayra Lara MD Diagnosis: 1 PO QD Naproxen 500 MG Oral Tablet 09/29/2019 - 06/01/2020 Provider : Mayra Lara MD Diagnosis: one BID prn pain, MDD 2 Gabapentin 300MG Oral Capsule 07/01/2019 - 06/01/2020 Provid er: aLlit Elkins PA-C Diagnosis: 1 PO BID Simvastatin 10MG Oral Tablet 06/27/2019 - 06/12/2020 Provide r: Lalit Elkins PA-C Diagnosis: 1 PO QD Metoprolol Tartrate 50MG Oral Tablet 06/27/2019 - 06/12/2020 Provider: Lalit Elkins PA-C Diagnosis: as directed 1.5 tabs PO BID FreeStyle Lite Test In Vitro Strip 06/19/2019 - 09/13/2020 P rovider: Lalit Elkins PA-C Diagnosis: as directed Test Daily and PRN Dx:E11.65 Enalapril Maleate 20MG Oral Tablet 06/17/2019 - 03/17/2020 P rovider: Mayra Lara MD Diagnosis: Essential (primary) hypertension 1 PO BID Sertraline HCl 100MG Oral Tablet 06/17/2019 - 03/17/2020 Pro vider: Mayra Lara MD Diagnosis: 1 PO QD hydrALAZINE HCl 25MG Oral Tablet 06/17/2019 - 03/17/2020 Pro vider: Mayra Lara MD Diagnosis: Essential (primary) hypertension 1 PO BID metFORMIN HCl 1000MG Oral Tablet 06/17/2019 - 03/17/2020 Pro vider: Mayra Lara MD Diagnosis: Type 2 diabetes paul itus without complications 1 PO BID Simvastatin 10 MG Oral Tablet 06/12/2019 - 09/03/2020 Provid er: Mayra Lara MD Diagnosis: Cefuroxime Axetil 500MG Oral Tablet 05/30/2019 - 06/06/2019 Provider: Lalit Elkins PA-C Diagnosis: Esophagitis, unspeci fied Take 1 tablet bid for 7 days Famotidine 20MG Oral Tablet 05/30/2019 - 09/03/2020 Provider : Lalit Elkins PA-C Diagnosis: Esophagitis, unspeci fied Take one PO qhs Jardiance 10MG Oral Tablet 03/24/2019 - 11/28/2019 Provider: Mayra Lara MD Diagnosis: 1 PO QD BD Pen Needle Mini U/F 31G X 5 MM Miscellaneous 03/24/2019 - 11/28/2019 Provider: Mayra Lara MD Diagnosis: Other specified diab etes mellitus without complications Use 1 needle daily with Lantus pen. Dx:E13.9 Naproxen 500MG Oral Tablet 03/11/2019 - 08/29/2019 Provider: Mayra Lara MD Diagnosis: one BID prn pain, MDD 2 Trulicity 1.5MG/0.5ML Subcutaneous Solution Pen-inject or 02/11/2019 - 11/28/2019 Provider: Mayra Lara MD Diagnosis: inject subcutaneously once weekly Lantus SoloStar 100UNIT/ML Subcutaneous Solution Pen-i njector 02/03/2019 - 04/13/2020 Provider: Mayra Lara MD Diagnosis: Type 2 diabetes paul itus with hyperglycemia as directed 71 units subq qd. Simvastatin 10MG Oral Tablet 09/10/2018 - 05/30/2019 Provide r: Mayra Lara MD Diagnosis: 1 PO QD Gabapentin 300MG Oral Capsule 08/28/2018 - 05/30/2019 Provid er: Mayra Lara MD Diagnosis: 1 PO BID Metoprolol Tartrate 50MG Oral Tablet 06/28/2018 - 05/30/2019 Provider: Maria Teresa FLANNERY-BC Diagnosis: as directed 1.5 tabs PO BID Metoprolol Tartrate 50MG Oral Tablet 06/27/2018 - 06/11/2018 Provider: Maria Teresa FLANNERY- Diagnosis: as directed 1.5 tabs PO BID Naproxen 500MG Oral Tablet 06/12/2018 - 03/11/2019 Provider: Maria Teresa Elkins ANP-BC Diagnosis: one BID prn pain, MDD 2 Enalapril Maleate 20MG Oral Tablet 06/11/2018 - 05/30/2019 P galder: Maria Teresa Elkins ANP- Diagnosis: Essential (primary) hypertension 1 PO BID Cialis 5MG Oral Tablet 06/11/2018 - 09/03/2020 Provider: Maria Teresa Elkins ANP- Diagnosis: Take one tab daily Gabapentin 100MG Oral Capsule 06/11/2018 - 08/28/2018 Provid er: Maria Teresa Elkins ANP- Diagnosis: 1 tab in am, 2 tabs in the evening MetFORMIN HCl 1000MG Oral Tablet 06/11/2018 - 05/30/2019 Pro vider: Maria Teresa Elkins ANP- Diagnosis: Type 2 diabetes paul itus without complications 1 PO BID Sertraline HCl 100MG Oral Tablet 06/11/2018 - 05/30/2019 Pro vider: Maria Teresa Elkins ANP- Diagnosis: 1 PO QD HydrALAZINE HCl 25MG Oral Tablet 06/11/2018 - 05/30/2019 Pro vider: Maria Teresa Elkins ANP- Diagnosis: Essential (primary) hypertension 1 PO BID Accu-Chek FastClix Lancets Miscellaneous 05/23/2018 - 2018 Provider: Maria Teresa Elkins ANP-BC Diagnosis: use as directed. Test QD and PRN E11.65 FreeStyle Lite Test In Vitro Strip 05/23/2018 - 05/30/2019 P danellevider: Maria Teresa Elkins ANP-BC Diagnosis: as directed Test Daily and PRN Dx:E11.65 Cefuroxime Axetil 250MG Oral Tablet 04/25/2018 - 06/11/2018 Provider: Maria Teresa Elkins ANP- Diagnosis: Take 1 tab every 12 hours with food Naproxen 500MG Oral Tablet 03/22/2018 - 03/05/2018 Provider: Maria Teresa Elkins ANP- Diagnosis: one BID prn pain, MDD 2 Oxycodone-Acetaminophen 5-325MG Oral Tablet 03/05/2018 - 11/2017 Provider: Maria Teresa Elkins ANP- Diagnosis: Low back pain 1 tab q6h prn pain. MDD 4 Ref #: [id number] BD Pen Needle Mini U/F 31G X 5 MM Miscellaneous 03/05/2018 - 02/28/2019 Provider: Maria Teresa Elkins ANP- Diagnosis: Other specified diab etes mellitus without complications Use 1 needle daily with Lantus pen. Dx:E13.9 Trulicity 1.5MG/0.5ML Subcutaneous Solution Pen-inject or 03/05/2018 - 12/02/2018 Provider: Maria Teresa Elkins ANP- Diagnosis: inject subcutaneously once weekly Oxycodone-Acetaminophen 5-325MG Oral Tablet 03/05/2018 - Provider: Maria Teresa Elkins ANP- Diagnosis: Low back pain 1 tab q6h prn pain. MDD 4 Ref #: [id number] Oxycodone-Acetaminophen 5-325MG Oral Tablet 02/12/2018 - Provider: Maria Teresa Elkins ANP- Diagnosis: Low back pain 1 tab q6h prn pain. MDD 4 Ref #: [id number] Cialis 5MG Oral Tablet 12/18/2017 - 06/11/2018 Provider: Maria Teresa Elkins ANP- Diagnosis: Take one tab daily Jardiance 10MG Oral Tablet 12/07/2017 - 06/11/2018 Provider: Maria Teresa Elkins ANP-BC Diagnosis: 1 PO QD Trulicity 1.5MG/0.5ML Subcutaneous Solution Pen-inject or 12/06/2017 - 03/05/2018 Provider: Maria Teresa Elkins ANP-BC Diagnosis: inject subcutaneously once weekly Lantus SoloStar 100UNIT/ML Subcutaneous Solution Pen-i njector 12/06/2017 - 12/02/2018 Provider: Maria Teresa Elkins ANP-BC Diagnosis: Type 2 diabetes paul itus with hyperglycemia as directed 71 units subq qd. Gabapentin 100MG Oral Capsule 12/05/2017 - 06/11/2018 Provid er: Maria Teresa Elkins ANP-BC Diagnosis: 1 tab twice daily Naproxen 500 MG OR TABS 09/10/2017 - 02/12/2018 Provider: Maria Teresa Elkins ANP-BC Diagnosis: one BID prn pain, MDD 2 Sertraline HCl 100MG Oral Tablet 08/24/2017 - 06/11/2018 Pro vider: Maria Teresa Elkins ANP-BC Diagnosis: 1 PO QD Metoprolol Tartrate 50MG Oral Tablet 08/24/2017 - 06/11/2018 Provider: Maria Teresa Elkins ANP-BC Diagnosis: as directed 1.5 tabs PO BID HydrALAZINE HCl 25MG Oral Tablet 08/24/2017 - 06/11/2018 Pro vider: [facility] Diagnosis: 1 PO BID MetFORMIN HCl 1000MG Oral Tablet 08/24/2017 - 06/11/2018 Pro vider: Maria Teresa Elkins ANP-BC Diagnosis: Type 2 diabetes paul itus without complications 1 PO BID Enalapril Maleate 20MG Oral Tablet 08/24/2017 - 06/11/2018 P rovider: Maria Teresa Elkins ANP- Diagnosis: Essential (primary) hypertension 1 PO BID Simvastatin 10MG Oral Tablet 08/24/2017 - 08/28/2018 Provide r: Maria Teresa Elkins ANP- Diagnosis: 1 PO QD Trulicity 1.5 MG/0.5ML SC SOPN 08/21/2017 - 12/06/2017 Provi olga: Maria Teresa Elkins ANP- Diagnosis: inject subcutaneously once weekly Lantus SoloStar 100UNIT/ML Subcutaneous Solution Pen-i njector 06/12/2017 - 12/06/2017 Provider: Maria Teresa Elkins ANP- Diagnosis: Type 2 diabetes paul itus with hyperglycemia as directed 71 units subq qd. BD Pen Needle Mini U/F 31G X 5 MM Miscellaneous 06/12/2017 - 03/05/2018 Provider: Maria Teresa Elkins ANP-BC Diagnosis: Other specified diab etes mellitus without complications Use 1 needle daily with Lantus pen. Dx:E13.9 Lantus SoloStar 100 UNIT/ML SC SOPN 03/13/2017 - 06/12/2017 Provider: Maria Teresa Elkins ANP-BC Diagnosis: Type 2 diabetes paul itus with hyperglycemia as directed 71 units subq qd. Trulicity 1.5 MG/0.5ML SC SOPN 03/05/2017 - 08/31/2016 Provi olga: Maria Teresa Elkins ANP- Diagnosis: inject subcutaneously once weekly Lantus SoloStar 100 UNIT/ML Solution Pen-injector 12/18/2016 - 12/12/2016 Provider: Maria Teresa Elkins ANP- Diagnosis: Type 2 diabetes paul itus with hyperglycemia as directed 71 units subq qd. Gabapentin 100 MG Capsule 12/12/2016 - 08/24/2017 Provider: Maria Teresa Elkins ANP- Diagnosis: 1 tab twice daily Prandin 0.5 MG Tablet 09/25/2016 - 06/12/2017 Provider: Maria Teresa Elkins ANP- Diagnosis: take one tab, po, 15-30 minutes before each meal Simvastatin 10 MG Tablet 09/25/2016 - 08/24/2017 Provider: Maria Teresa Elkins ANP- Diagnosis: 1 PO QD Trulicity 1.5 MG/0.5ML Solution Pen-injector 09/01/2016 - Provider: Maria Teresa Elkins ANP- Diagnosis: inject subcutaneously once weekly Sertraline HCl 100 MG Tablet 08/31/2016 - 08/24/2017 Provide r: [facility]: 1 PO QD Metoprolol Tartrate 50 MG Tablet 08/31/2016 - 08/24/2017 Pro vider: Maria Teresa Elkins ANP- Diagnosis: as directed 1.5 tabs PO BID HydrALAZINE HCl 25 MG Tablet 08/31/2016 - 08/24/2017 Provide r: Maria Teresa Elkins ANP- Diagnosis: 1 PO BID MetFORMIN HCl 1000 MG Tablet 08/31/2016 - 08/24/2017 Provide r: Maria Teresa Elkins ANP- Diagnosis: Type 2 diabetes pual itus without complications 1 PO BID Gabapentin 100 MG Capsule 08/31/2016 - 12/12/2016 Provider: Maria Teresa Elkins ANP- Diagnosis: 1 PO QD Enalapril Maleate 20 MG Tablet 08/31/2016 - 08/24/2017 Provi olga: Maria Teresa Elkins ANP- Diagnosis: Essential (primary) hypertension 1 PO BID Naproxen 500 MG Tablet 08/31/2016 - 09/10/2017 Provider: Maria Teresa Elkins ANP-BC Diagnosis: one BID prn pain, MDD 2 Trulicity 0.75 MG/0.5ML Solution Pen-injector 06/13/2016 - 0 09/01/2016 Provider: Maria Teresa Elkins ANP-BC Diagnosis: Type 2 diabetes paul itus with hyperglycemia inject subcutaneously 0.75 mg once weekly, the same day of BD Pen Needle Mini U/F 31G X 5 MM Miscellaneous 05/17/2016 - 06/12/2017 Provider: Maria Teresa Elkins ANP-BC Diagnosis: Other specified diab etes mellitus without complications Use 1 needle daily with Lantus pen. Dx:E13.9 Naproxen 500 MG Tablet 04/06/2016 - 08/31/2016 Provider: Maria Teresa Elkins ANP-BC Diagnosis: one BID prn pain, MDD 2 Naproxen 500 MG Tablet 03/16/2016 - 04/06/2016 Provider: Maria Teresa Elkins ANP-BC Diagnosis: one BID prn prn pain, MDD 2 Naproxen 500 MG Tablet 12/15/2015 - 03/16/2016 Provider: Tyler Samson MD Diagnosis: one BID prn prn pain, MDD 2 Lantus SoloStar 100 UNIT/ML SC SOPN 12/03/2015 - 12/12/2016 Provider: Tyler Samson MD Diagnosis: Type 2 diabetes paul itus with hyperglycemia 71 units subq qd. Simvastatin 10 MG Tablet 12/02/2015 - 08/31/2016 Provider: Tyler Samson MD Diagnosis: 1 PO QD Sertraline HCl 100 MG Tablet 12/02/2015 - 08/31/2016 Provide r: Tyler Samson MD Diagnosis: 1 PO QD Prandin 0.5 MG Tablet 12/02/2015 - 08/31/2016 Provider: Tyler Samson MD Diagnosis: take one tab, po, 15-30 minutes before each meal Metoprolol Tartrate 50 MG Tablet 12/02/2015 - 08/31/2016 Pro vider: Tyler Samson MD Diagnosis: as directed 1.5 tabs PO BID MetFORMIN HCl 1000 MG Tablet 12/02/2015 - 08/31/2016 Provide r: Tyler Samson MD Diagnosis: 1 PO BID HydrALAZINE HCl 25 MG Tablet 12/02/2015 - 08/31/2016 Provide r: Tyler Samson MD Diagnosis: 1 PO BID Gabapentin 100 MG Capsule 12/02/2015 - 08/31/2016 Provider: Tyler Samson MD Diagnosis: 1 PO QD Enalapril Maleate 20 MG Tablet 12/02/2015 - 08/31/2016 Provi olga: Tyler Samson MD Diagnosis: 1 PO BID Lantus SoloStar 100 UNIT/ML Solution Pen-injector 12/02/2015 - 12/02/2015 Provider: Tyler Samson MD Diagnosis: Type 2 diabetes paul itus with hyperglycemia 71 units subq qd. Prandin 0.5 MG Tablet 09/23/2015 - 12/02/2015 Provider: Tyler Samson MD Diagnosis: take one tab, po, 15-30 minutes before each meal MetFORMIN HCl 1000 MG Tablet 09/23/2015 - 12/02/2015 Provide r: Tyler Samson MD Diagnosis: 1 PO BID HydrALAZINE HCl 25 MG Tablet 09/15/2015 - 12/02/2015 Provide r: Tyler Samson MD Diagnosis: 1 PO BID Lantus SoloStar 100 UNIT/ML Solution Pen-injector 09/15/2015 - 12/02/2015 Provider: Tyler Samson MD Diagnosis: as directed 69 units SC daily Naproxen 500 MG Tablet 09/15/2015 - 12/02/2015 Provider: Tyler Samson MD Diagnosis: one BID prn prn pain, MDD 2 Naproxen 500 MG Tablet 06/17/2015 - 06/03/2015 Provider: Tyler Samson MD Diagnosis: one BID prn prn pain, MDD 3. BD Pen Needle Mini U/F 31G X 5 MM Miscellaneous (not s pecified) 04/16/2015 - 12/02/2015 Provider: Tyler Samson MD Diagnosis: Other specified diab etes mellitus without complications Use 1 needle daily with Lantus pen. Dx:E13.9 Naproxen 500 MG Tablet 03/29/2015 - 06/17/2015 Provider: Tyler Samson MD Diagnosis: one BID prn prn pain Oxycodone-Acetaminophen 5-325 MG Tablet 03/11/2015 - 018 Provider: Tyler Samson MD Diagnosis: Low back pain 1-2 po q4-6h prn pain. MDD 8. Reference #: [id number] Sertraline HCl 100 MG Tablet 11/30/2014 - 12/02/2015 Provide r: Tyler Samson MD Diagnosis: 1 PO QD Metoprolol Tartrate 50 MG Tablet 11/30/2014 - 12/02/2015 Pro vider: Tyler Samson MD Diagnosis: as directed 1.5 tabs PO BID MetFORMIN HCl 1000 MG Tablet 11/30/2014 - 06/03/2015 Provide r: Tyler Samson MD Diagnosis: 1 PO BID HydrALAZINE HCl 25 MG Tablet 11/30/2014 - 06/03/2015 Provide r: Tyler Samson MD Diagnosis: 1 PO BID Gabapentin 100 MG Capsule, conventional 11/30/2014 - 016 Provider: Tyler Samson MD Diagnosis: 1 PO QD Enalapril Maleate 20 MG Tablet 11/30/2014 - 12/02/2015 Provi olga: Tyler Samson MD Diagnosis: 1 PO BID Prandin 0.5 MG Tablet 11/30/2014 - 06/03/2015 Provider: Tyler Samson MD Diagnosis: take one tab, po, 15-30 minutes before each meal Lantus SoloStar 100 UNIT/ML Solution Pen-injector 11/30/2014 - 06/03/2015 Provider: Tyler Samson MD Diagnosis: as directed 69 units SC daily Simvastatin 10 MG Tablet 11/30/2014 - 12/02/2015 Provider: Tyler Samson MD Diagnosis: 1 PO QD Lantus SoloStar 100 UNIT/ML Solution Pen-injector 10/07/2014 - 11/30/2014 Provider: Harshad Menjivar MD Diagnosis: as directed 69 units SC daily Prandin 0.5 MG Tablet 09/29/2014 - 11/30/2014 Provider: Harshad Menjivar MD Diagnosis: take one tab, po, 15-30 minutes before each meal Prandin 0.5 MG OR TABS 08/04/2014 - 09/02/2014 Provider: Harshad Menjivar MD Diagnosis: take one tab, po, 15-30 minutes before each meal FreeStyle Lite Test STRP 07/31/2014 - 04/25/2018 Provider : Harshad Menjivar MD Diagnosis: DM,adult onset TYPE II unspecified type.uncontrolled Test Daily and PRN Dx:250.02 FreeStyle Lite TANI 07/31/2014 - 06/01/2016 Provider: Harshad Menjivar MD Diagnosis: DM,adult onset TYPE II unspecified type.uncontrolled Test Blood Sugar Daily and PRN Sertraline HCl 100 MG OR TABS 07/31/2014 - 11/30/2014 Provid er: Angle Menjivar RPA Diagnosis: metFORMIN HCl 1000 MG TABS 07/31/2014 - 11/30/2014 Provider: Angle Menjivar RPA Diagnosis: Enalapril Maleate 20 MG OR TABS 07/31/2014 - 11/30/2014 Prov ider: Angle Menjivar RPA Diagnosis: metFORMIN HCl 1000 MG TABS 07/31/2014 - 07/19/2014 Provider: Angle Menjivar RPA Diagnosis: Gabapentin 100 MG OR CAPS 07/31/2014 - 11/30/2014 Provider: Angle Menjivar RPA Diagnosis: Naproxen 500 MG OR TABS 07/31/2014 - 03/29/2015 Provider: Angle Menjivar RPA Diagnosis: prn pain hydrALAZINE HCl 25 MG OR TABS 07/31/2014 - 11/30/2014 Provid er: Angle Menjivar RPA Diagnosis: Simvastatin 10 MG OR TABS 07/31/2014 - 11/30/2014 Provider: Angle Menjivar RPA Diagnosis: Metoprolol Tartrate 50 MG OR TABS 07/31/2014 - 11/30/2014 Pr ovider: Angle Menjivar RPA Diagnosis: 1.5 tabs PO BID Accu-Chek Araceli Plus STRP 07/28/2014 - 07/31/2014 Provide r: Harshad Menjivar MD Diagnosis: DM,adult onset TYPE II unspecified type.uncontrolled Test daily and PRN Dx:250.02 NovoLOG FlexPen 100 UNIT/ML SC SOPN 07/03/2014 - 09/02/2014 Provider: Diagnosis: 5 units SC TID (prior to meals) Lantus SoloStar 100 UNIT/ML SC SOPN 07/03/2014 - 10/07/2014 Provider: Diagnosis: 69 units SC daily BD Disp Needle 30G X 1" [facility] [place]03[place] - 04/16/2015 Provide r: Jair Diego MD Diagnosis: BD Disp Needle 30G X 1" [facility] [place]2014 - 07/03/2014 Provide r: Jair Diego MD Diagnosis: hydrALAZINE HCl 25 MG OR TABS 02/27/2014 - 07/19/2014 Provid er: Diagnosis: Simvastatin 10 MG OR TABS 02/27/2014 - 07/19/2014 Provider: Diagnosis: Sertraline HCl 100 MG OR TABS 02/27/2014 - 07/19/2014 Provid er: Diagnosis: Naproxen 500 MG OR TABS 02/27/2014 - 07/19/2014 Provider: Diagnosis: pain Metoprolol Tartrate 50 MG OR TABS 02/27/2014 - 07/19/2014 Pr ovider: Diagnosis: 1.5 tabs PO BID metFORMIN HCl 1000 MG TABS 02/27/2014 - 07/19/2014 Provider: Diagnosis: Enalapril Maleate 20 MG OR TABS 02/27/2014 - 07/19/2014 Prov ider: Diagnosis: Gabapentin 100 MG OR CAPS 02/27/2014 - 07/19/2014 Provider: Diagnosis: Accu-Chek Araceli STRP 02/21/2013 - 07/31/2014 Provider: Diagnosis: 1 strip inj QID Medications Administered Includes: Administered Medications in patient's chartNo Administered Medications Recorded Vital Signs Includes: Vital Signs from 12/01/2019 through 11/30/2020 Vital Name 11/30/2020 08:13A 09/03/2020 08:12A 09/03/2020 08:11A 09/03/2020 08:08A 06/01/2020 07:53A Blood Pressure Sitting (mmHg) 138/67 130/70 130/70 130/70 124/60 Pulse Rate-Sitting (bpm) 66 72 72 72 64 Respiration Rate (breaths/min) 18 18 22 Height (in) 68.25 68.25 68.25 68.25 68.25 Weight (lb) 218 223 223 223 212 Body Mass Index (kg/m2) 32.9 33.7 33.7 33.7 3 2.0 Body Surface Area (m2) 2.13 2.15 2.15 2.15 2. 10 Oxygen Saturation (%) 96 96 96 Vital Name 04/02/2020 07:50A 02/27/2020 07:50A Blood Pressure Sitting (mmHg) 130/58 126/56 Pulse Rate-Sitting (bpm) 64 76 Respiration Rate (breaths/min) 18 Height (in) 68.25 68.25 Weight (lb) 212 218 Body Mass Index (kg/m2) 32.0 32.9 Body Surface Area (m2) 2.10 2.13 Results Includes: Results from 12/01/2019 through 11/30/2020 CMP [facility] Ordered by Mayra Lara MD on 11/29/2020 [address] [place], [address] Collected: 11/29/2020 Reported: 11/29/2020 11:57 tel :[phone] ext. 1500 Albumin 4.3 g/dl (3.4-5.0) None Note: Responsible Observer: KM Alkaline Phos 82 IU/L (39-117) None Note: Responsible Observer: KM ALT 15 IU/L (4-40) None Note: Responsible Observer: KM AST 13 IU/L (4-37) None Note: Responsible Observer: KM Urea Nitrogen 29 mg/dl (6-20) H (High) Note: Responsible Observer: KM Calcium 9.1 mg/dl (8.6-10.3) None Note: Responsible Observer: KM Chloride 99 mmol/L (96-108) None Note: Responsible Observer: KM CO2 25 mmol/L (23-31) None Note: Responsible Observer: KM Creatinine 1.2 mg/dl (0.5-1.2) None Note: Responsible Observer: KM EGFR - AfricanAm > 60 N/A (-) None Note: Responsible Observer: KM EGFR - Non AF AM > 60 N/A (-) None Note: Responsible Observer: KM Glucose 188 mg/dl (70-105) H (High) Note: Responsible Observer: KM Potassium 4.6 mmol/L (3.2-5.4) None Note: Responsible Observer: KM Sodium 139 mmol/L (133-145) None Note: Responsible Observer: KM Total Bilirubin 0.5 mg/dl (0.0-1.2) None Note: Responsible Observer: KM Total Protein 5.8 g/dl (6.0-8.0) L (Low) Note: Responsible Observer: KM Reviewed by Mayra Lara MD on 11/29; All test results are final unless otherwise noted. Hgba1c [facility] Ordered by Mayra Lara MD on 11/29/2020 [address] [place], [address] Collected: 11/29/2020 Reported: 11/29/2020 11:57 tel :[phone] ext. 1500 Hgba1c 10.0 na (5.0-6.0) H (High) Note: Responsible Observer: KM Reviewed by Mayra Lara MD on 11/29; All test results are final unless otherwise noted. ACR [facility] Ordered by Mayra Lara MD on 09/02/2020 [address] [place], [address] Collected: 09/02/2020 Reported: 09/02/2020 13:09 tel :[phone] ext. 1500 ACR 144.6 ug/mg (0-30) H (High) Note: Responsible Observer: KM Micro alb 127.0 mg/L (0-30) H (High) Note: Responsible Observer: KM Urine Creat 87.8 mg/dl (34-300) None Note: Responsible Observer: KM Reviewed by Mayra Lara MD on 09/03; All test results are final unless otherwise noted. CMP [facility] Ordered by Mayra Lara MD on 09/02/[address] [place] [address], [address] Collected: 09/02/2020 Reported: 09/02/2020 13:09 tel :[phone] ext. 1500 Albumin 4.2 g/dl (3.4-5.0) None Note: Responsible Observer: KM Alkaline Phos 85 IU/L (39-117) None Note: Responsible Observer: KM ALT 19 IU/L (4-40) None Note: Responsible Observer: KM AST 18 IU/L (4-37) None Note: Responsible Observer: KM Urea Nitrogen 18 mg/dl (6-20) None Note: Responsible Observer: KM Calcium 9.5 mg/dl (8.4-10.2) None Note: Responsible Observer: KM Chloride 103 mmol/L (96-108) None Note: Responsible Observer: KM CO2 27 mmol/L (23-31) None Note: Responsible Observer: KM Creatinine 1.2 mg/dl (0.5-1.2) None Note: Responsible Observer: KM EGFR - AfricanAm > 60 N/A (-) None Note: Responsible Observer: KM EGFR - Non AF AM > 60 N/A (-) None Note: Responsible Observer: KM Glucose 84 mg/dl (70-105) None Note: Responsible Observer: KM Potassium 4 mmol/L (3.2-5.4) None Note: Responsible Observer: KM Sodium 143 mmol/L (133-145) None Note: Responsible Observer: KM Total Bilirubin 0.6 mg/dl (0.0-1.2) None Note: Responsible Observer: KM Total Protein 6.1 g/dl (6.0-8.0) None Note: Responsible Observer: KM Reviewed by Mayra Lara MD on 09/03; All test results are final unless otherwise noted. Lipid Panel [facility] Ordered by Mayra Lara MD on 09/02/[address] [place] [address], [address] Collected: 09/02/2020 Reported: 09/02/2020 13:09 tel :[phone] ext. 1500 Cholesterol 168 mg/dl (135-200) None Note: Responsible Observer: KM Dir. LDL 104 mg/dl (50-150) None Note: Responsible Observer: KM HDL 41 mg/dl (35-55) None Note: Responsible Observer: KM Triglycerides 98 mg/dl (40-150) None Note: Responsible Observer: KM Reviewed by Mayra Lara MD on 09/03; All test results are final unless otherwise noted. Hgba1c [facility] Ordered by Mayra Lara MD on 09/02/[address] [place] [address], [address] Collected: 09/02/2020 Reported: 09/02/2020 13:09 tel :[phone] ext. 1500 Hgba1c 10.3 na (5.0-6.0) H (High) Note: Responsible Observer: KM Reviewed by Mayra Lara MD on 09/03; All test results are final unless otherwise noted. PSA [facility] Ordered by Mayra Lara MD on 09/02/[address] [place] [address], [address] Collected: 09/02/2020 Reported: 09/02/2020 13:09 tel :[phone] ext. 1500 PSA 1.02 I/L (0.0-4.0) None Note: Responsible Observer: KM Reviewed by Mayra Lara MD on 09/03; All test results are final unless otherwise noted. BMP [facility] Ordered by Mayra Lara MD on 05/31/2020 [address] [place], [address] Collected: 05/31/2020 Reported: 05/31/2020 14:29 tel :[phone] ext. 1500 Urea Nitrogen 21 mg/dl (6-20) H (High) Note: Responsible Observer: KM Calcium 9.1 mg/dl (8.4-10.2) None Note: Responsible Observer: KM Chloride 108 mmol/L (96-108) None Note: Responsible Observer: KM CO2 28 mmol/L (23-31) None Note: Responsible Observer: KM Creatinine 1.1 mg/dl (0.5-1.2) None Note: Responsible Observer: KM EGFR - AfricanAm > 60 N/A (-) None Note: Responsible Observer: KM EGFR - Non AF AM > 60 N/A (-) None Note: Responsible Observer: KM Glucose 119 mg/dl (70-105) H (High) Note: Responsible Observer: KM Potassium 4.2 mmol/L (3.2-5.4) None Note: Responsible Observer: KM Sodium 138 mmol/L (133-145) None Note: Responsible Observer: KM Reviewed by Mayra Lara MD on 06/01; All test results are final unless otherwise noted. Hgba1c [facility] Ordered by Mayra Lara MD on 05/31/[address] [place] [address], [address] Collected: 05/31/2020 Reported: 05/31/2020 14:29 tel :[phone] ext. 1500 Hgba1c 8.2 na (5.0-6.0) H (High) Note: Responsible Observer: KM Reviewed by Mayra Lara MD on 06/01; All test results are final unless otherwise noted. BMP [facility] Ordered by Mayra Lara MD on 03/31/[address] [place] [address], [address] Collected: 03/31/2020 Reported: 03/31/2020 11:59 tel :[phone] ext. 1500 Urea Nitrogen 29 mg/dl (6-20) H (High) Note: Responsible Observer: KM Calcium 9.4 mg/dl (8.4-10.2) None Note: Responsible Observer: KM Chloride 101 mmol/L (96-108) None Note: Responsible Observer: KM CO2 26 mmol/L (23-31) None Note: Responsible Observer: KM Creatinine 1.2 mg/dl (0.5-1.2) None Note: Responsible Observer: KM EGFR - AfricanAm > 60 N/A (-) None Note: Responsible Observer: KM EGFR - Non AF AM > 60 N/A (-) None Note: Responsible Observer: KM Glucose 146 mg/dl (70-105) H (High) Note: Responsible Observer: KM Potassium 4.1 mmol/L (3.2-5.4) None Note: Responsible Observer: KM Sodium 139 mmol/L (133-145) None Note: Responsible Observer: KM Reviewed by Mayra Lara MD on 03/31; All test results are final unless otherwise noted. [facility] Ordered by Mayra Lara MD on 02/26/[address] [place] [address], [address] Collected: 02/26/2020 Reported: 02/26/2020 13:15 tel : ext. 1500 Albumin 4.1 g/dl (3.4-5.0) None Note: Responsible Observer: KM Alkaline Phos 69 IU/L (39-117) None Note: Responsible Observer: KM ALT 18 IU/L (4-40) None Note: Responsible Observer: KM AST 17 IU/L (4-37) None Note: Responsible Observer: KM Urea Nitrogen 30 mg/dl (6-20) H (High) Note: Responsible Observer: KM Calcium 9 mg/dl (8.4-10.2) None Note: Responsible Observer: KM Chloride 107 mmol/L (96-108) None Note: Responsible Observer: KM CO2 24 mmol/L (23-31) None Note: Responsible Observer: KM Creatinine 1 mg/dl (0.5-1.2) None Note: Responsible Observer: KM EGFR - AfricanAm > 60 N/A (-) None Note: Responsible Observer: KM EGFR - Non AF AM > 60 N/A (-) None Note: Responsible Observer: KM Glucose 94 mg/dl (70-105) None Note: Responsible Observer: KM Potassium 4.2 mmol/L (3.2-5.4) None Note: Responsible Observer: KM Sodium 140 mmol/L (133-145) None Note: Responsible Observer: KM Total Bilirubin 0.4 mg/dl (0.0-1.2) None Note: Responsible Observer: KM Total Protein 5.8 g/dl (6.0-8.0) L (Low) Note: Responsible Observer: KM Reviewed by Mayra Lara MD on 02/26; All test results are final unless otherwise noted. Hgba1c [facility] Ordered by Mayra Lara MD on 02/26/[address] [place] [address], [facility] Collected: 02/26/2020 Reported: 02/26/2020 13:15 tel : ext. 1500 Hgba1c 7.5 na (5.0-6.0) H (High) Note: Responsible Observer: KM Reviewed by Mayra Lara MD on 02/26; All test results are final unless otherwise noted. 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 11/29/2020 CMP-Complete Metabolic Profile 31010 Other spe cified diabetes mellitus with diabetic nephropathy Mayra Lara MD [facility], [facility] 11/29/2020 Venipuncture (routine) 87216 Other specified d iabetes mellitus with diabetic nephropathy Mayra Lara MD [facility], [facility] 021 -Annual depression screening- 15 min. (Distinct Sepe rate service-same day) G0444 Encntr for general adult medical exam w/ o abnormal findings, Encounter for screening for other disorder [facility] 09/03/2020 MC- subseq't annual wellness exam(1 yr after Initial) G0439 Encntr for general adult medical exam w/o abnormal findings Mayra Lara MD [facility], [facility] 09/03/2020 Venipuncture (routine) 19203 Other specified d iabetes mellitus with diabetic nephropathy, Hyperlipidemia, unspecified Mayra Lara MD [facility], [facility] 09/02/2020 PSA -Prostate Screening once/yr(over age 50) G0103 Encounter for screening for malignant neoplasm of prostate [facility] 09/02/2020 Mircro Alb urine 38958 Other specified diab etes mellitus with diabetic nephropathy, Hyperlipidemia, unspecified Mayra Lara MD [facility], [facility] 09/02/2020 Creatinine: URINE 49334 Other specified diab etes mellitus with diabetic nephropathy, Hyperlipidemia, unspecified Mayra Lara MD [facility], [facility] 09/02/2020 Fasting Lipid Profile 67379 Other specified di abetes mellitus with diabetic nephropathy, Hyperlipidemia, unspecified Mayra Lara MD [facility], [facility] 09/02/2020 CMP-Complete Metabolic Profile 45636 Other spe cified diabetes mellitus with diabetic nephropathy, Hyperlipidemia, unspecified Mayra Lara MD [facility], [facility] 09/02/2020 HgbA1C 07968 Other specified diab etes mellitus with diabetic nephropathy, Hyperlipidemia, unspecified Mayra Lara MD [facility], [facility] 09/02/2020 BMP-Basic Metabolic Profile 48398 Other specif ied diabetes mellitus with diabetic nephropathy Mayra Lara MD [facility], [facility] 05/31/2020 HgbA1C 70202 Other specified diabetes mellitu s with diabetic nephropathy Mayra Lara MD [facility], [facility] 05/31/2020 Venipuncture (routine) 76301 Other specified d iabetes mellitus with diabetic nephropathy Mayra Lara MD [facility] 020 BMP-Basic Metabolic Profile 03168 Other specif ied diabetes mellitus with diabetic nephropathy Mayra Lara MD [facility] 03/31/2020 Venipuncture (routine) 63249 Other specified d iabetes mellitus with diabetic nephropathy Mayra Lara MD [facility], [facility] 020 HgbA1C 53649 Other specified diabetes mellitu s with diabetic nephropathy Mayra Lara MD [facility] 02/26/2020 CMP-Complete Metabolic Profile 61333 Other spe cified diabetes mellitus with diabetic nephropathy Mayra Lara MD [facility] 02/26/2020 Venipuncture (routine) 01648 Other specified d iabetes mellitus with diabetic nephropathy Mayra Lara MD [facility], [facility] 020 Surgical History Last Updated Prior surgery ~Vena cava filter 2008 (p reventive following neck surgery) ~SCC removal 01/22 (Dr. Dave) ~Neck surgery (fractured Mr. Philip 2008) ~ 09/01/2016 Medical History Includes: Medical History in patient's chart Description Last Updated Health care proxy on file 06/01/2016 Family History Includes: Family History in patient's chart Description Last Updated Aunts and uncles All 4 paternal uncles with CAD 06/02 Brother in poor health Diagnosed ALS in past year Father CAD, [place] (57), had his first [place] at age 41 06/02/2016 First child is a son JRA, had testicular cancer 06/02 First cousins Paternal first cousin on cancer, paternal first cousin testicular cancer, age 57, paternal cousin with breast cancer, 06/02/2016 Second child is a son Healthy 06/02/2016 Second sister in good health 06/02/2016 Sister in good health Diagnosed breast cancer at age 32 06/02/2016 Reports [facility] breast ca, depression, HTN 07/03/2014 Mother DM (66) 07/03/2014 Review of Systems Review of Systems not supported for this document typeNo Review of Systems Recorded Mental Status Mental Status not supported for this document type Description Depression which is stable Stable on se rtraline 100 mg daily, continues to stay as active as possible [Major depressive disorder, single episode, unspecified] Functional Status Functional Status not supported for this document typeNo Functional Status Recorded Physical Exam Physical Exam not supported for this document typeNo Physical Exam Recorded Immunizations Includes: Immunizations in patient's chart Vaccine Dose # Date Site Reaction(s) Status Source Influenza, seasonal, injectable 1 06/03/2015 Left Arm Complete (Administered) [facility] Influenza, seasonal, injectable 2 06/01/2016 Left Deltoid Complete (Administered) [facility] Note: VIS Given Influenza, seasonal, injectable 3 06/12/2017 Right Deltoid Complete (Administered) [facility] PCV (Pneumovax 23) 1 07/06/2006 Complete (Reported ) Patient [id number] 1 06/12/2017 Left Deltoid Complete (Admini stered) [facility] Tdap (> 7 yrs) 1 02/26/2013 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 11/30 8:05AM 8:27AM Acute Renal Failure, Polyneuropathy, Ess ential Hypertension Benign, Depression, Esophageal Reflux, Hyperlipidemia, Diabetes with Diabetic Nephropathy, Ankylosing Spondylitis of Lumbosacral Region, Psoriasis Arthropathic, Lumbago with Sciatica, Male Erectile Dysfunction [Patient Encounter] Mayra Lara MD 11/09/2020 021 9:09AM 09/03/2020 11:59PM Annual Wellness SUBSEQUENT visi t(> 1yr since prev. Ronni Lara MD [facility] 09/03/2020 7:48AM 9:00AM Routine History and Physical Senior Citizen (65-80 Yrs) ANNUAL PE-followup exam/30 Mayra Lara MD [facility] 09/03/2020 7:48AM 9:00AM Routine History and Physical Senior Citizen (65-80 Yrs) followup Mayra Lara MD [facility] 09/03 7:48AM 9:00AM Acute Renal Failure, Polyneuropathy, Dep ression, Diabetes with Diabetic Nephropathy, Ankylosing Spondylitis of Lumbosacral Region, Male Erectile Dysfunction, Essential Hypertension Benign, Hyperlipidemia, Psoriasis Arthropathic, Lumbago with Sciatica, Esophageal Reflux followup Mayra Lara MD [facility] 06/01 7:51AM 8:12AM Acute Renal Failure, Polyneuropathy, Dep ression, Diabetes with Diabetic Nephropathy, Ankylosing Spondylitis of [place]umbosacral Region, Psoriasis Arthropathic, Male Erectile Dysfunction followup Mayra Lara MD [facility] 04/02 7:46AM 8:15AM Esophagitis Acute, Acute Renal Failure, Polyneuropathy, Essential Hypertension Benign, Depression, Hyperlipidemia, Diabetes with Diabetic Nephropathy, Ankylosing Spondylitis of [place]umbos[place]ral Region, Psoriasis Arthropathic, Lumbago with Sciatica, Male Erectile Dysfunction, Diarrhea followup Mayra Lara MD [facility] 02/26 7:47AM 8:20AM Esophagitis Acute, Polyneuropathy, Essen tial Hypertension Benign, Depression, Hyperlipidemia, Diabetes with Diabetic Nephropathy, Psoriasis Arthropathic, Lumbago with Sciatica, Male Erectile Dysfunction, Ankylosing Spondylitis of Lumbosacral Region, Acute Renal Failure Insurance Includes: Active Insurance Policies Plan Name Member ID Group # Subscriber Relationship Effective Da adam 1 - [facility]- [id number] Kameron Foster Self 07/16/2017 - Unknown Advance Directives Includes: Current Advance DirectivesNo Advance Directives Recorded Health Concerns Includes: Active Health ConcernsNo Active Health Concerns Recorded Goals Includes: Active GoalsNo Active Goals Recorded Interventions Includes: Interventions for active GoalsNo Interventions Recorded Evaluations & Outcomes Includes: Evaluations & Outcomes for active GoalsNo Outcomes Recorded
--- OUTSIDE RECORDS SUMMARY | 2021-05-19 06:28 | CCD ---
Author Author [facility] Organization [facility] Address [address] [place] [address] Phone Care Team Providers Care [employer] Set Up Operator Name Role Phone Rebeca STATON, Gloria Woo Unavailable [phone] Jane STATON, Mayra Santoro PP [phone] Blayne STATON, Wang T Unavailable Unavailable Janay STATON, Huberttomi Unavailable Unavailable Reason for Referral No Reason for Referral Recorded Problems Includes: Active, inactive, and resolved Problems All Visits Onset Date - Time Resolved Date - Time Provider Co ndition Status Ankylosing Spondylitis of Lumbosacral Region 02/27/2020 - 8:14AM Mayra Lara MD Active Diabetes with Diabetic Nephropathy 06/12/2017 - 12:00AM Maria Teresa Elkins ANP-BC Active Note: DM dx 2009 Polyneuropathy 06/01/2016 - 12:00AM Maria Teresa Elkins ANP- BC Active Psoriasis 06/01/2016 - 12:00AM Maria Teresa FLANNERY-BC Active 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); b/l upper extremities s/p neck fx/surg; disabled Osteoarthritis 07/16/2008 - 12:00AM Angle Menjivar RP A Active Note: back; pt states "fusio n" from OA Essential Hypertension Benign 04/19/2004 - 12:00AM Lisa Samson MD Active Organic Impotence 07/24/2003 - 12:00AM Angle Menjivar RPA Active Depression 01/07/2002 - 12:00AM Angle Menjivar RPA Active Obesity 01/07/2002 - 12:00AM Angle Armendarizbo RPA Active Psoriatic Arthropathy 01/07/2002 - 12:00AM Angle Salas ambo RPA Inactive Note: Enbrel in past; Humira started 2009 Psoriasis Arthropathic 01/07/2002 - 12:00AM Tyler Cancino MD Active Note: r/u [place] Diabetes Mellitus Type 2 - Uncomplicated, Uncontrolled 2 - 12:00AM Maria Teresa Elkins ANP-BC Inactive Note: started rx 2008 Plan of Treatment Future Appointments Date Time Location Provider followup 11/30/2020 8:15AM [facility] Mayra Lara MD Future Tests Order Diagnosis Results Due Ordering Provid er Lab A1C 12/02/20 Mayra quinones MD Lab CMP 12/02/20 Mayra quinones MD Findings Encounter Date Education and counseling Age and gender specific counceling on preventative health discussed with the patient using USPTF and/or ACP guidlines on health maintenance and screening ANNUAL PE-followup exam/ with Mayra Lara MD 09/03/2020 Education and [...] maintenance and screening followup with Maria Teresa Elkins ANP-BC 06/01/2016 Assessments Includes: Assessments for all patient encounters Findings Encounter Date Routine senior citizen history and physi leo (65-80 yrs) [Encounter for general adult medical examination without abnormal findings] ANNUAL PE-followup exam/ with Mayra Lara MD 09/03/2020 Acute renal [...] psoriasis rash. Follows with Dr. Gustafson in [place] [Arthropathic psoriasis, unspecified] followup with Mayra Lara [...] citizen history and physical (65-80 yrs ) Annual Wellness SUBSEQUENT visi t(> 1yr since [...] rash. Currently following with Dr. Gustafson in [place], requests referral to Dr. Bethea today as he is not happy with the care he is receiving in [place]. [Arthropathic psoriasis, unspecified] followup with Mayra Lara [...] MD 04/02/2020 Diarrhea Continue loperamide. Will gayathri brittni for improvement in symptoms with discontinuation of [...] psoriasis rash. Follows with Dr. Gustafson in [place] [Arthropathic psoriasis, unspecified] followup with Mayra Lara [...] psoriasis rash. Follows with Dr. Gustafson in [place] [Arthropathic psoriasis, unspecified] followup with Mayra Lara [...] psoriasis rash. Follows with Dr. Gustafson in [place] [Arthropathic psoriasis, unspecified] followup with Mayra Lara [...] psoriasis rash. Follows with Dr. Gustafson in [place] [Arthropathic psoriasis, unspecified] followup with Mayra Lara [...] psoriasis rash. Follows with Dr. Gustafson in [place] [Arthropathic psoriasis, unspecified] followup with Mayra Lara [...] [Lumbago with sciatica, left side] followup with Mayar Lara MD 12/02/2018 Male erectile dysfunction Refer to urol jacquie for further evaluation and treatment [Other male erectile dysfunction] followup with Mayra Lara MD 12/02/2018 Polyneuropathy Improving with gabapenti n to 300mg PO BID [Polyneuropathy, unspecified] followup with Mayra Lara MD 12/02/2018 Arthropathic psoriasis Is receiving Hum shantel every 2 weeks- which has helped both with pain and psoriasis rash. Follows with Dr. Gustafson in [place] [Arthropathic psoriasis, unspecified] followup with Mayra Lara [...] psoriasis rash followup with Maria Teresa [facility] 06/11/2018 Benign essential hypertension -Blood pr essure well controlled with enalapril, hydralazine, and metoprolol followup with [facility] 06/11/2018 Depression -Continue with sertraline 10 0 mg daily, reports has more difficulty with depression during the winter months and rainy dark days, continues to stay as active as possible followup with Maria Teresa [facility] 06/11/2018 Diabetes with diabetic nephropathy - he moglobin A1c slightly improved to 9.0, patient is taking Trulicity, Lantus, metformin, . Never started Jardiance 10 mg 1 tablet daily as recommended, taking 71 units of Lantus insulin followup with [facility] 06/11/2018 Hyperlipidemia -Lipids are excellent in 09/02, continu e simvastatin followup with [facility] 06/11/2018 Polyneuropathy Taking gabapentin 100 mg twice daily, will increase to 2 tabs at bedtime to see if legs are more comfortsble followup with [facility] 06/11/2018 Acute upper respiratory infection with some features of allergies. Start saline nasal spray at least twice daily, continue with claritin daily. Start ceftin 250mg 1 tab twice daily. Will obtain chest xray, currently being treated for pneumonia, he had some rhonchi remaining after cough sick visit with Maria Teresa [facility] 04/25/2018 Arthropathic psoriasis Is receiving Hum shantel every 2 weeks- which has helped both with pain and psoriasis rash followup with Maria Teresa [facility] 03/05/2018 Benign essential hypertension -Blood pr essure well controlled with enalapril, hydralazine, and metoprolol followup with [facility] 03/05/2018 Depression -Continue with sertraline 10 0 mg daily, reports has more difficulty with depression during the winter months and rainy dark days, continues to stay as active as possible followup with Maria Teresa [facility] 03/05/2018 Diabetes with diabetic nephropathy - he moglobin A1c slightly improved to 9.0, patient is taking Trulicity, Lantus, metformin, and Prandin. AddedJardiance 10 mg 1 tablet daily to regimen 3 weeks ago, has not yet started this medication, taking 71 units of Lantus insulin followup with Maria Teresa [facility] 03/05/2018 Hyperlipidemia -Lipids are excellent in 09/02, continu e simvastatin followup with [facility] 03/05/2018 Polyneuropathy Taking gabapentin 100 mg twice daily which has helped with discomfort followup with [facility] 03/05/2018 Constipation Patient recommended to use MiraLAX 1/2-1 capful daily, patient to titrate according to need. Recommend he try to avoid frequent use of laxatives sick visit with [facility] 02/12/2018 Peripheral neuropathy Related to diabet es and prior back injuries. Patient currently is taking Percocet 1 tablet at bedtime, and Aleve at least 1 tablet daily, rates his pain when sitting as 5/10. Discussed physical therapy with patient especially balance therapy, patient will consider. Possibly consider pain clinic, patient indicates pain is improving slowly since his falls sick visit with [facility] 02/12/2018 Arthropathic psoriasis Is receiving Hum shantel every 2 weeks- which has helped both with pain and psoriasis rash followup with [facility] 12/06/2017 Benign essential hypertension -Blood pr essure well controlled with enalapril, hydralazine, and metoprolol followup with [facility] 12/06/2017 Depression -Continue with sertraline 10 0 mg daily, reports has more difficulty with depression during the winter months and rainy dark days, continues to stay as active as possible followup with [facility] 12/06/2017 Diabetes with diabetic nephropathy - he moglobin A1c has worsened to 9.4, patient is taking Trulicity, Lantus, metformin, and Prandin. Will add Jardiance 10 mg 1 tablet daily to regimen followup with [facility] 12/06/2017 Hyperlipidemia -Lipids are excellent in 09/02, continu e simvastatin followup with [facility] 12/06/2017 Polyneuropathy Taking gabapentin 100 mg twice daily which has helped with discomfort followup with Maria Teresa [facility] 12/06/2017 Arthropathic psoriasis Is receiving Hum shantel every 2 weeks- which has helped both with pain and psoriasis rash followup with Maria Teresa [facility] 08/24/2017 Benign essential hypertension -Blood pr essure well controlled with enalapril, hydralazine, and metoprolol followup with Maria Teresa [facility] 08/24/2017 Depression -Continue with sertraline 10 0 mg daily, reports has a bit more difficulty with depression during the winter months, continues to stay as active as possible followup with [facility] Teresa [facility] 08/24/2017 Diabetes with diabetic nephropathy -Res tarted Prandin therapy, hemoglobin A1c improved from 9.5-8.6, patient is taking Trulicity, Lantus, metformin, and Prandin. Patient thinks he can improve hemoglobin A1c with diet and would like to try to do so followup with Maria Teresa [facility] 08/24/2017 Hyperlipidemia -Lipids are excellent, continue simvas tatin followup with Maria Teresa [facility] 08/24/2017 Polyneuropathy Taking gabapentin 100 mg twice daily which has helped with discomfort followup with [facility] 08/24/2017 Arthropathic psoriasis Is receiving Hum shantel every 2 weeks-rash essentially resolved with this medication, holds also with discomfort followup with Maria Teresa [facility] 06/12/2017 Benign essential hypertension -Blood pr essure well controlled with enalapril, hydralazine, and metoprolol followup with [facility] Teresa [facility] 06/12/2017 Depression -Continue with sertraline 10 0 mg daily, reports has a bit more difficulty with depression during the winter months, feels he is handling it okay, states he will not allow himself to feel sorry about his health, continues to stay as active as possible followup with Maria Teresa [facility] 06/12/2017 Diabetes with diabetic nephropathy Hemo globin A1c has worsened from 8.2 in 11/29 to 9.5, last microalbumin in 09/01 was 72. Spoke with pt who would rather restart Prandin 0.5 mg with meals as before and see if this will improve glucoses. [facility] 3 [facility] Hyperlipidemia Will recheck at next appointment, not fasting today [facility] Polyneuropathy Taking gabapentin 100 mg twice daily which has helped with discomfort followup with Maria Teresa [facility] 06/12/2017 No tobacco use never smoked Annual Wellness SUBSEQ UENT visi t(> 1yr since prev. with Maria Teresa [facility] 06/12/2017 Routine adult history and physical (18 - 64 yrs) An nual Wellness SUBSEQUENT visi t(> 1yr since prev. with Maria Teresa [facility] 06/12/2017 Arthropathic psoriasis Is receiving Hum shantel every 2 weeks-rash essentially resolved with this medication followup with Maria Teresa [facility] 12/12/2016 Benign essential hypertension -blood pr essure is elevated today, pt reports he forgot to take his medications this am followup with Maria Teresa [facility] 12/12/2016 Depression -Continue with sertraline 10 0 mg daily, reports has a bit more difficulty with depression during the winter months, feels he is handling it okay, but constant rain has been very difficult followup with [facility] 12/12/2016 Polyneuropathy Taking gabapentin 100 mg once daily which has helped with discomfort, will increase to 100mg twice daily to decrease discomfort followup with [facility] 12/12/2016 Pure hypercholesterolemia -lipids stable in - fol lowup with Maria Teresa [facility] 12/12/2016 Type 2 diabetes mellitus - uncomplicated , uncontrolled -Hemoglobin A1c has improved from 9.2 to 8.2 on Trulicity dose to 1.5 mg subcutaneously once weekly. Admits to some dietary indiscretions and will work on those, is generally more active in the summer, has not been because of the increased rain followup with Maria Teresa [facility] 12/12/2016 Arthropathic psoriasis Is receiving Hum shantel every 2 weeks-he has improved with this medication followup with Maria Teresa [facility] 08/31/2016 Benign essential hypertension Stable followup with [facility] 08/31/2016 Depression -Continue with sertraline 10 0 mg daily, reports has a bit more difficulty with depression during the winter months, feels she is handling it okay and looking forward to longer daylight hours followup with Maria Teresa [facility] 08/31/2016 Polyneuropathy Taking gabapentin 100 mg once daily which has helped with discomfort [facility] Psoriasis Has improved with Humira injections [facility]u [facility] Pure hypercholesterolemia followup with Maria Teresa [facility] 08/31/2016 Type 2 diabetes mellitus - uncomplicated , uncontrolled -Hemoglobin A1c has improved from 9.6 to 9.2. Will increase Trulicity dose to 1.5 mg subcutaneously once weekly. Indicates he has been more inactive through the winter because of his balance and falling, will also try to make improvements in diet followup with Maria Teresa [facility] 08/31/2016 Arthropathic psoriasis Is receiving Hu' ramona every 2 weeks-he has improved with this medication [facility] Benign essential hypertension followup with Maria Teresa [facility] 06/01/2016 Depression -Depression score was high a t 15, counseling services offered, he did not want to increase or change medication [facility] Palpitations Describes pounding pulse, discussed Holter monitor, patient would like to wait for now. He's not aware of skipped beats. Will check thyroid followup with Maria Teresa [facility] 06/01/2016 Polyneuropathy Patient has decrease kristi apentin 200 mg once daily, for intermittent jabbing generalized discomfort. He will increase gabapentin to 100 mg twice daily followup with [facility] Teresa [facility] 06/01/2016 Pruritus Behind the left ear, uncertain of cause, skin is somewhat dry. He will apply skin moisturizer to see if this improves [facility] Pure hypercholesterolemia followup with Maria Teresa [facility] 06/01/2016 Type 2 diabetes mellitus - uncomplicated, uncontrolled -Hemoglobin A1c is 9.6 [facility] No tobacco use Annual Wellness SUBSEQUEN T visi t(> 1yr [facility] Routine adult history and physical (18 - 64 yrs) An nual Wellness SUBSEQUENT visi t(> 1yr [facility] Arthropathic psoriasis fair control. Seeing Rheumato [...] monoplegia was seen new patient with Angle J Shambo RPA 07/03/2014 Depression new patient with Angle J Shambo RPA Hypercholesterolemia new patient with Angle J Shambo RPA Obesity new patient with Angle J Shambo RPA Type 2 diabetes mellitus - uncomplicated, uncontrolled new patient with Angle J Shambo RPA 07/03/2014 Instructions Instructions not supported for this document typeNo Instructions Recorded Medical Equipment - Implanted Devices Includes: Current and historical DevicesNo Medical Equipment Recorded Medications Includes: Current and historical Medications Current Medications (continue as prescribed) Jardiance 25 MG Oral Tablet 09/03/2020 Provider: [...] with hyperglycemia as directed 71U ac qd Sertraline HCl 100 MG Oral Tablet 03/17/2020 Provid er: Mayra Lara MD Diagnosis: TAKE ONE TABLET BY MOUTH EVERY DAY Enalapril Maleate 20 MG Oral Tablet 03/17/2020 Prov ider: Mayra Lara MD Diagnosis: Essential (primary) hypertension TAKE ONE TABLET BY MOUTH TWICE A DAY hydrALAZINE HCl 25 MG Oral Tablet [...] daily with Lantus pen. Dx:E13.9 FreeStyle Lancets [facility] 07/31/2014 Provider: Harshad Mnejivar MD Diagnosis: DM,adult onset TYPE II unspecified [...] Oral Capsule 07/01/2019 - 06/01/2020 Provid er: Lalit Elkins PA-C Diagnosis: 1 PO BID Metoprolol Tartrate 50MG Oral Tablet 06/27/2019 - 06/12/2020 Provider: Lalit Elkins PA-C Diagnosis: as directed 1.5 tabs PO BID Simvastatin 10MG Oral Tablet 06/27/2019 - 06/12/2020 Provide r: Lalit Elkins PA-C Diagnosis: 1 PO QD FreeStyle Lite Test In Vitro Strip 06/19/2019 - 06/13/2020 P rovider: Lalit Elkins PA-C Diagnosis: as directed Test Daily and PRN Dx:E11.65 Sertraline HCl 100MG Oral Tablet 06/17/2019 - 03/17/2020 Pro vider: Mayra Lara MD Diagnosis: 1 PO QD hydrALAZINE HCl 25MG Oral Tablet 06/17/2019 - 03/17/2020 Pro vider: Mayra Lara MD Diagnosis: Essential (primary) hypertension 1 PO BID Enalapril Maleate 20MG Oral Tablet 06/17/2019 - 03/17/2020 P rovider: Myara Lara MD Diagnosis: Essential (primary) hypertension 1 [...] Tablet 06/27/2018 - 06/11/2018 Provider: Maria Teresa Elkins ANP-BC Diagnosis: as directed 1.5 tabs PO BID Naproxen 500MG Oral Tablet 06/12/2018 - 03/11/2019 Provider: Maria Teresa Elkins ANP-BC Diagnosis: one BID prn pain, MDD 2 Gabapentin 100MG Oral Capsule 06/11/2018 - 08/28/2018 Provid er: Maria Teresa Elkisn ANP-BC Diagnosis: 1 tab in am, 2 tabs in the evening MetFORMIN HCl 1000MG Oral Tablet 06/11/2018 - 05/30/2019 Pro vider: Maria Teresa Elkins ANP-BC Diagnosis: Type 2 diabetes paul itus without complications 1 PO BID Sertraline HCl 100MG Oral Tablet 06/11/2018 - 05/30/2019 Pro vider: Maria Teresa Elkins ANP-BC Diagnosis: 1 PO QD HydrALAZINE HCl 25MG Oral Tablet 06/11/2018 - 05/30/2019 Pro vider: Maria Teresa Elkins ANP- Diagnosis: Essential (primary) hypertension 1 PO BID Cialis 5MG Oral Tablet 06/11/2018 - 09/03/2020 Provider: Maria Teresa Elkins ANP- Diagnosis: Take one tab daily Enalapril Maleate 20MG Oral Tablet 06/11/2018 - 05/30/2019 P rovider: Maria Teresa Elkins [facility] Diagnosis: Essential (primary) hypertension 1 PO BID FreeStyle Lite Test In Vitro Strip 05/23/2018 - 05/30/2019 P rovider: Maria Teresa Elkins [facility] Diagnosis: as directed Test Daily and PRN Dx:E11.65 Accu-Chek FastClix Lancets Miscellaneous 05/23/2018 - 2018 Provider: Maria Teresa Elkins ANP- Diagnosis: use as directed. Test QD and PRN E11.65 Cefuroxime Axetil 250MG Oral Tablet 04/25/2018 - 06/11/2018 Provider: Maria Teresa Elkins ANP- Diagnosis: Take 1 tab every 12 hours with food Naproxen 500MG Oral Tablet 03/22/2018 - 03/05/2018 Provider: Maria Teresa Elkins ANP- Diagnosis: one BID prn pain, MDD 2 BD Pen Needle Mini U/F 31G X 5 MM Miscellaneous 03/05/2018 - 02/28/2019 Provider: Maria Teresa Elkins ANP- Diagnosis: Other specified diab etes mellitus without complications Use 1 needle daily with Lantus pen. Dx:E13.9 Trulicity 1.5MG/0.5ML Subcutaneous Solution Pen-inject or 03/05/2018 - 12/02/2018 Provider: Maria Teresa Elkins ANP- Diagnosis: inject subcutaneously once weekly Oxycodone-Acetaminophen 5-325MG Oral Tablet 03/05/2018 - Provider: Maria Teresa Elkins ANP-BC Diagnosis: Low back pain 1 tab q6h prn pain. MDD 4 Ref #: [id number] Oxycodone-Acetaminophen 5-325MG Oral Tablet 03/05/2018 - 11/2017 Provider: Maria Teresa Elkins ANP-BC Diagnosis: Low back pain 1 tab q6h prn pain. MDD 4 Ref #: [id number] Oxycodone-Acetaminophen 5-325MG Oral Tablet 02/12/2018 - Provider: Maria Teresa Elkins [facility] Diagnosis: Low back pain 1 tab q6h prn pain. MDD 4 Ref #: [id number] Cialis 5MG Oral Tablet 12/18/2017 - 06/11/2018 Provider: Maria Teresa Elkins [facility] Diagnosis: Take one tab daily Jardiance 10MG Oral Tablet 12/07/2017 - 06/11/2018 Provider: Maria Teresa Elkins [facility] Diagnosis: 1 PO QD Trulicity 1.5MG/0.5ML Subcutaneous Solution Pen-inject or 12/06/2017 - 03/05/2018 Provider: Maria Teresa Elkins [facility] Diagnosis: inject subcutaneously once weekly Lantus SoloStar 100UNIT/ML Subcutaneous Solution Pen-i njector 12/06/2017 - 12/02/2018 Provider: Maria Teresa Elkins ANP- Diagnosis: Type 2 diabetes paul itus with hyperglycemia as directed 71 units subq qd. Gabapentin 100MG Oral Capsule 12/05/2017 - 06/11/2018 Provid er: Maria Teresa Elkins [facility] Diagnosis: 1 tab twice daily Naproxen 500 MG OR TABS 09/10/2017 - 02/12/2018 Provider: Maria Teresa Elkins [facility] Diagnosis: one BID prn pain, MDD 2 Sertraline HCl 100MG Oral Tablet 08/24/2017 - 06/11/2018 Pro vider: Maria Teresa Elkins [facility] Diagnosis: 1 PO QD Metoprolol Tartrate 50MG Oral Tablet 08/24/2017 - 06/11/2018 Provider: Maria Teresa Elkins [facility] Diagnosis: as directed 1.5 tabs PO BID HydrALAZINE HCl 25MG Oral Tablet 08/24/2017 - 06/11/2018 Pro vider: Maria Teresa Elkins [facility] Diagnosis: 1 PO BID MetFORMIN HCl 1000MG Oral Tablet 08/24/2017 - 06/11/2018 Pro vider: Maria Teresa Elkins [facility] Diagnosis: Type 2 diabetes paul itus without complications 1 PO BID Enalapril Maleate 20MG Oral Tablet 08/24/2017 - 06/11/2018 P rovider: Maria Teresa Elkins ANP-BC Diagnosis: Essential (primary) hypertension 1 PO BID Simvastatin 10MG Oral Tablet 08/24/2017 - 08/28/2018 Provide r: Maria Teresa Elkins ANP-BC Diagnosis: 1 PO QD Trulicity 1.5 MG/0.5ML SC SOPN 08/21/2017 - 12/06/2017 Provi olga: Maria Teresa Elkins ANP-BC Diagnosis: inject subcutaneously once weekly Lantus SoloStar 100UNIT/ML Subcutaneous Solution Pen-i njector 06/12/2017 - 12/06/2017 Provider: Maria Teresa Elkins ANP-BC Diagnosis: Type [...] 12/18/2016 - 12/12/2016 Provider: Maria Teresa Elkins ANP-BC Diagnosis: Type 2 diabetes paul itus with hyperglycemia as directed 71 units subq qd. Gabapentin 100 MG Capsule 12/12/2016 - 08/24/2017 Provider: Maria Teresa Elkins ANP-BC Diagnosis: 1 tab twice daily Prandin 0.5 MG Tablet 09/25/2016 - 06/12/2017 Provider: Maria Teresa Elkins ANP-BC Diagnosis: take one tab, po, 15-30 minutes before each meal Simvastatin 10 MG Tablet 09/25/2016 - 08/24/2017 Provider: Maria Teresa Elkins ANP-BC Diagnosis: 1 PO QD Trulicity 1.5 MG/0.5ML Solution Pen-injector 09/01/2016 - Provider: Maria Teresa Elkins ANP-BC Diagnosis: inject subcutaneously once weekly Sertraline HCl 100 MG Tablet 08/31/2016 - 08/24/2017 Provide r: Maria Teresa Elkins [facility] Diagnosis: 1 PO QD Metoprolol Tartrate 50 MG Tablet 08/31/2016 - 08/24/2017 Pro vider: Maria Teresa Elkins [facility] Diagnosis: as directed 1.5 tabs PO BID HydrALAZINE HCl 25 MG Tablet 08/31/2016 - 08/24/2017 Provide r: Maria Teresa Elkins [facility] Diagnosis: 1 PO BID MetFORMIN HCl 1000 MG Tablet 08/31/2016 - 08/24/2017 Provide r: Maria Teresa Elkins [facility] Diagnosis: Type 2 diabetes paul itus without complications 1 PO BID Gabapentin 100 MG Capsule 08/31/2016 - 12/12/2016 Provider: Maria Teresa Elkins [facility] Diagnosis: 1 PO QD Enalapril Maleate 20 MG Tablet 08/31/2016 - 08/24/2017 Provi olga: Maria Teresa Elkins [facility] Diagnosis: Essential (primary) hypertension 1 PO BID Naproxen 500 MG Tablet 08/31/2016 - 09/10/2017 Provider: Maria Teresa Elkins [facility] Diagnosis: one BID prn pain, MDD 2 Trulicity 0.75 MG/0.5ML Solution Pen-injector 06/13/2016 - 0 09/01/2016 Provider: Maria Teresa Elkins [facility] Diagnosis: Type 2 diabetes paul itus with hyperglycemia inject subcutaneously 0.75 mg once weekly, the same day of BD Pen Needle Mini U/F 31G X 5 MM Miscellaneous 05/17/2016 - 06/12/2017 Provider: Maria Teresa Elkins [facility] Diagnosis: Other specified diab etes mellitus without complications Use 1 needle daily with Lantus pen. Dx:E13.9 Naproxen 500 MG Tablet 04/06/2016 - 08/31/2016 Provider: Maria Teresa Elkins [facility] Diagnosis: one BID prn pain, MDD 2 Naproxen 500 MG Tablet 03/16/2016 - 04/06/2016 Provider: Maria Teresa Elkins [facility]- Diagnosis: one BID prn prn pain, MDD 2 Naproxen 500 MG Tablet 12/15/2015 - 03/16/2016 Provider: Tyler Samson MD Diagnosis: one BID prn prn pain, MDD 2 Lantus SoloStar 100 UNIT/ML SC SOPN 12/03/2015 - 12/12/2016 Provider: Tyler Samson MD Diagnosis: Type 2 diabetes paul itus with hyperglycemia 71 units subq qd. Sertraline HCl 100 MG Tablet 12/02/2015 - 08/31/2016 Provide r: Tyler Samson MD Diagnosis: 1 PO QD Prandin 0.5 MG Tablet 12/02/2015 - 08/31/2016 Provider: Tyler Samson MD Diagnosis: take one tab, po, 15-30 minutes before each meal Metoprolol Tartrate 50 MG Tablet 12/02/2015 - 08/31/2016 Pro vider: Tyler Samson MD Diagnosis: as directed 1.5 tabs PO BID Simvastatin 10 MG Tablet 12/02/2015 - 08/31/2016 Provider: Tyler Samson MD Diagnosis: 1 PO QD HydrALAZINE HCl 25 MG Tablet 12/02/2015 - [...] itus with hyperglycemia 71 units subq qd. MetFORMIN HCl 1000 MG Tablet 12/02/2015 - 08/31/2016 Provide r: Tyler Samson MD Diagnosis: 1 PO BID Prandin 0.5 MG Tablet 09/23/2015 - 12/02/2015 Provider: Tyler Samson MD Diagnosis: take one tab, po, 15-30 minutes before each meal MetFORMIN HCl 1000 MG Tablet 09/23/2015 - 12/02/2015 Provide r: Tyler Samson MD Diagnosis: 1 PO BID Naproxen 500 MG Tablet 09/15/2015 - 12/02/2015 Provider: Tyler Samson MD Diagnosis: one BID prn prn pain, MDD 2 Lantus SoloStar 100 UNIT/ML Solution Pen-injector 09/15/2015 - 12/02/2015 Provider: Tyler Samson MD Diagnosis: as directed 69 units SC daily HydrALAZINE HCl 25 MG Tablet 09/15/2015 - 12/02/2015 Provide r: Tyler Samson MD Diagnosis: 1 PO BID Naproxen 500 MG Tablet 06/17/2015 - 06/03/2015 [...] q4-6h prn pain. MDD 8. Reference #: [id number] Simvastatin 10 MG Tablet 11/30/2014 - 12/02/2015 Provider: Tyler Samson MD Diagnosis: 1 PO QD HydrALAZINE HCl 25 MG Tablet 11/30/2014 - [...] Diagnosis: as directed 69 units SC daily MetFORMIN HCl 1000 MG Tablet 11/30/2014 - 06/03/2015 Provide r: Tyler Samson MD Diagnosis: 1 PO BID Metoprolol Tartrate 50 MG Tablet 11/30/2014 - 12/02/2015 Pro vider: Tyler Samson MD Diagnosis: as directed 1.5 tabs PO BID Sertraline HCl 100 MG Tablet 11/30/2014 - [...] 15-30 minutes before each meal FreeStyle Lite TANI 07/31/2014 - 06/01/2016 Provider: Harshad Menjivar MD Diagnosis: DM,adult onset TYPE II unspecified type.uncontrolled Test Blood Sugar Daily and PRN metFORMIN HCl 1000 MG TABS 07/31/2014 - 11/30/2014 Provider: Angle Menjivar RPA Diagnosis: Enalapril Maleate 20 MG OR TABS 07/31/2014 - 11/30/2014 Prov ider: Angle Menjivar RPA Diagnosis: metFORMIN HCl 1000 MG TABS 07/31/2014 - 07/19/2014 Provider: Angle Menjivar RPA Diagnosis: Sertraline HCl 100 MG OR TABS 07/31/2014 - 11/30/2014 Provid er: Angle Menjivar RPA Diagnosis: Metoprolol Tartrate 50 MG OR TABS 07/31/2014 - 11/30/2014 Pr ovider: Angle Menjivar RPA Diagnosis: 1.5 tabs PO BID Simvastatin 10 MG OR TABS 07/31/2014 - 11/30/2014 Provider: Angle Menjivar RPA Diagnosis: hydrALAZINE HCl 25 MG OR TABS 07/31/2014 - 11/30/2014 Provid er: Angle Menjivar RPA Diagnosis: Naproxen 500 MG OR TABS 07/31/2014 - 03/29/2015 Provider: Angle Menjivar RPA Diagnosis: prn pain Gabapentin 100 MG OR CAPS 07/31/2014 - 11/30/2014 Provider: Angle Menjivar RPA Diagnosis: FreeStyle Lite Test STRP 07/31/2014 - 04/25/2018 Provider : Harshad Menjivar MD Diagnosis: DM,adult onset TYPE II unspecified type.uncontrolled Test Daily and PRN Dx:250.02 Accu-Chek Araceli Plus STRP 07/28/2014 - 07/31/2014 Provide r: Harshad Menjivar MD Diagnosis: DM,adult onset TYPE II unspecified type.uncontrolled Test daily and PRN Dx:250.02 BD Disp Needle 30G X 1" [facility] 07/03/2014 - 04/16/2015 Provide r: Jair Diego MD Diagnosis: Lantus SoloStar 100 UNIT/ML SC SOPN 07/03/2014 - 10/07/2014 Provider: Diagnosis: 69 units SC daily NovoLOG FlexPen 100 UNIT/ML SC SOPN 07/03/2014 - 09/02/2014 Provider: Diagnosis: 5 units SC TID (prior to meals) BD Disp Needle 30G X 1" [facility] 06/20/2014 - 07/03/2014 Provide r: Jair Diego MD Diagnosis: Simvastatin 10 MG OR TABS 02/27/2014 - 07/19/2014 Provider: Diagnosis: Sertraline HCl 100 MG OR TABS 02/27/2014 - 07/19/2014 Provid er: Diagnosis: Naproxen 500 MG OR TABS 02/27/2014 - 07/19/2014 Provider: Diagnosis: pain metFORMIN HCl 1000 MG TABS 02/27/2014 - 07/19/2014 Provider: Diagnosis: Metoprolol Tartrate 50 MG OR TABS 02/27/2014 - 07/19/2014 Pr ovider: Diagnosis: 1.5 tabs PO BID hydrALAZINE HCl 25 MG OR TABS 02/27/2014 - 07/19/2014 Provid er: Diagnosis: Gabapentin 100 MG OR CAPS 02/27/2014 - 07/19/2014 Provider: Diagnosis: Enalapril Maleate 20 MG OR TABS 02/27/2014 - 07/19/2014 Prov ider: Diagnosis: Accu-Chek Araceli STRP 02/21/2013 - 07/31/2014 Provider: Diagnosis: 1 strip inj QID Medications Administered Includes: Administered Medications in patient's chartNo Administered Medications Recorded Vital Signs Includes: Vital Signs from 09/03/2019 through 09/03/2020 Vital Name 09/03/2020 08:12A 09/03/2020 08:11A 09/03/2020 08:08A 06/01/2020 07:53A 04/02/2020 07:50A Blood Pressure Sitting (mmHg) 130/70 130/70 130/70 124/60 130/58 Pulse Rate-Sitting (bpm) 72 72 72 64 64 Respiration Rate (breaths/min) 18 18 18 22 22 Height (in) 68.25 68.25 68.25 68.25 68.25 Weight (lb) 223 223 223 212 212 Body Mass Index (kg/m2) 33.7 33.7 33.7 32.0 3 2.0 Body Surface Area (m2) 2.15 2.15 2.15 2.10 2. 10 Oxygen Saturation (%) 96 96 96 Vital Name 02/27/2020 07:50A 11/28/2019 07:58A Blood Pressure Sitting (mmHg) 126/56 110/58 Pulse Rate-Sitting (bpm) 76 66 Respiration Rate (breaths/min) 18 20 Height (in) 68.25 68.25 Weight (lb) 218 219 Body Mass Index (kg/m2) 32.9 33.1 Body Surface Area (m2) 2.13 2.13 Results Includes: Results from 09/03/2019 through 09/03/2020 ACR [facility] Ordered by Mayra Lara MD on 09/02/[address] [place] [address], [id number] Collected: 09/02/2020 Reported: 09/02/2020 13:09 tel :[phone] ext. 1500 ACR 144.6 ug/mg (0-30) H (High) Note: Responsible Observer: KM Micro alb 127.0 mg/L (0-30) H (High) Note: Responsible Observer: KM Urine Creat 87.8 mg/dl (34-300) None Note: Responsible Observer: KM Reviewed by Mayra Lara MD on 09/03; All test results are final unless otherwise noted. CMP [facility] Ordered by Mayra Lara MD on 09/02/[address] [place] [address], [id number] Collected: 09/02/2020 Reported: 09/02/2020 13:09 tel :[phone] ext. 1500 Albumin 4.2 g/dl (3.4-5.0) None [...] Ordered by Mayra Lara MD on 09/02/[address] [place] [address], [facility] Collected: 09/02/2020 Reported: 09/02/2020 13:09 tel : ext. 1500 Cholesterol 168 mg/dl (135-200) None [...] by Mayra Lara MD on 09/02/2020 [address] [place], [address] Collected: 09/02/2020 Reported: 09/02/2020 13:09 tel :[phone] ext. 1500 Hgba1c 10.3 na (5.0-6.0) H (High) Note: Responsible Observer: KM Reviewed by Mayra Lara MD on 09/03; All test results are final unless otherwise noted. PSA [facility] Ordered by Mayra Lara MD on 09/02/2020 [address] [place], [address] Collected: 09/02/2020 Reported: 09/02/2020 13:09 tel :[phone] ext. 1500 PSA 1.02 I/L (0.0-4.0) None Note: Responsible Observer: KM Reviewed by Mayra Lara MD on 09/03; All test results are final unless otherwise noted. BMP [facility] Ordered by Mayra Lara MD on 05/31/[address] [place] [address], [id number] Collected: 05/31/2020 Reported: 05/31/2020 14:29 tel :[phone] ext. 1500 Urea Nitrogen 21 mg/dl (6-20) [...] by Mayra Lara MD on 05/31/2020 [address] [place], [address] Collected: 05/31/2020 Reported: 05/31/2020 14:29 tel :[phone] ext. 1500 Hgba1c 8.2 na (5.0-6.0) H (High) Note: Responsible Observer: KM Reviewed by Mayra Lara MD on 06/01; All test results are final unless otherwise noted. BMP [facility] Ordered by Mayra Lara MD on 03/31/2020 [address] [place], [address] Collected: 03/31/2020 Reported: 03/31/2020 11:59 tel :[phone] ext. 1500 Urea Nitrogen 29 mg/dl (6-20) [...] Ordered by Mayra Lara MD on 02/26/[address] [place] [address], [address] Collected: 02/26/2020 Reported: 02/26/2020 13:15 tel :[phone] ext. 1500 Albumin 4.1 g/dl (3.4-5.0) None [...] Ordered by Mayra Lara MD on 02/26/[address] [place] [address], [address] Collected: 02/26/2020 Reported: 02/26/2020 13:15 tel : ext. 1500 Hgba1c 7.5 na (5.0-6.0) H (High) Note: Responsible Observer: KM Reviewed by Mayra Lara MD on 02/26; All test results are final unless otherwise noted. CMP [facility] Ordered by Mayra Lara MD on 11/27/2019 [address] [place], [address] Collected: 11/27/2019 Reported: 11/27/2019 12:18 tel :[phone] ext. 1500 Albumin 4.3 g/dl (3.4-5.0) None Note: Responsible Observer: KM Alkaline Phos 81 IU/L (39-117) None Note: Responsible Observer: KM ALT 23 IU/L (4-40) None Note: Responsible Observer: KM AST 17 IU/L (4-37) None Note: Responsible Observer: KM Urea Nitrogen 24 mg/dl (6-20) H (High) Note: Responsible Observer: KM Calcium 9.1 mg/dl (8.4-10.2) None Note: Responsible Observer: KM Chloride 104 mmol/L (96-108) None Note: Responsible Observer: KM CO2 26 mmol/L (23-31) None Note: Responsible Observer: KM Creatinine 0.9 mg/dl (0.5-1.2) None Note: Responsible Observer: KM EGFR - AfricanAm > 60 N/A (-) None Note: Responsible Observer: KM EGFR - Non AF AM > 60 N/A (-) None Note: Responsible Observer: KM Glucose 133 mg/dl (70-105) H (High) Note: Responsible Observer: KM Potassium 4.3 mmol/L (3.2-5.4) None Note: Responsible Observer: KM Sodium 137 mmol/L (133-145) None Note: Responsible Observer: KM Total Bilirubin 0.5 mg/dl (0.0-1.2) None Note: Responsible Observer: KM Total Protein 6.1 g/dl (6.0-8.0) None Note: Responsible Observer: KM Reviewed by Mayra Lara MD on 11/27; All test results are final unless otherwise noted. Hgba1c [facility] Ordered by Mayra Lara MD on 11/27/[address] [place] [address], [id number] Collected: 11/27/2019 Reported: 11/27/2019 12:18 tel :[phone] ext. 1500 Hgba1c 7.9 na (5.0-6.0) H (High) Note: Responsible Observer: KM Reviewed by Mayra Lara MD on 11/27; All test results are final unless otherwise noted. 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 G0444 Encntr for general adult medical exam w/o abnormal findings, Encounter for screening for other disorder Mayra Lara MD 09/03/2020 PSA -Prostate Screening once/yr(over age 50) G0103 Encounter for screening for malignant neoplasm of prostate Mayra Lara MD [facility] 09/02/2020 Mircro Alb urine 78201 Other specified diab etes mellitus with diabetic nephropathy, Hyperlipidemia, unspecified Mayra Lara MD [facility], [facility] 09/02/2020 Creatinine: URINE 48796 Other specified diab etes mellitus with diabetic nephropathy, Hyperlipidemia, unspecified Mayra Lara MD [facility], [facility] 09/02/2020 Fasting Lipid Profile 00326 Other specified di abetes mellitus with diabetic nephropathy, Hyperlipidemia, unspecified Mayra Lara MD [facility], [facility] 09/02/2020 CMP-Complete Metabolic Profile 82656 Other spe cified diabetes mellitus with diabetic nephropathy, Hyperlipidemia, unspecified Mayra Lara MD [facility], [facility] 09/02/2020 HgbA1C 69077 Other specified diab etes mellitus with diabetic nephropathy, Hyperlipidemia, unspecified Mayra Lara MD [facility], [facility] 09/02/2020 Venipuncture (routine) 05010 Other specified d iabetes mellitus with diabetic nephropathy, Hyperlipidemia, unspecified Mayra Lara MD [facility], [facility] 09/02/2020 HgbA1C 87421 Other specified diabetes mellitu s with diabetic nephropathy Mayra Lara MD [facility], [facility] 05/31/2020 Venipuncture (routine) 02679 Other specified d iabetes mellitus with diabetic nephropathy Mayra Lara MD [facility], [facility] 020 BMP-Basic Metabolic Profile 49710 Other specif ied diabetes mellitus with diabetic nephropathy Mayra Lara MD [facility] 05/31/2020 Venipuncture (routine) 56684 Other specified d iabetes mellitus with diabetic nephropathy Mayra Lara MD [facility], [facility] BMP-Basic Metabolic Profile 54502 Other specif ied diabetes mellitus with diabetic nephropathy Mayra Lara MD [facility], [facility] 03/31/2020 HgbA1C 22650 Other specified diabetes mellitu s with diabetic nephropathy Mayra Lara MD [facility], [facility] 02/26/2020 CMP-Complete Metabolic Profile 69520 Other spe cified diabetes mellitus with diabetic nephropathy Mayra Lara MD [facility] 02/26/2020 Venipuncture (routine) 78070 Other specified d iabetes mellitus with diabetic nephropathy Mayra Lara MD [facility], [facility] 020 CMP-Complete Metabolic Profile 23504 Other spe cified diabetes mellitus with diabetic nephropathy Mayra Lara MD [facility] 11/27/2019 HgbA1C 46296 Other specified diabetes mellitu s with diabetic nephropathy Mayra Lara MD [facility] 11/27/2019 Venipuncture (routine) 56976 Other specified d iabetes mellitus with diabetic nephropathy Mayra Lara MD [facility], [facility] 020 Surgical History Last Updated Prior surgery [...] Diagnosed ALS in past year Father CAD, CO (57), had his first CO at age 41 06/02/2016 First child is a son JRA, had testicular cancer 06/02 First cousins Paternal first cousin on cancer, paternal first cousin testicular cancer, age 57, paternal cousin with breast cancer, 06/02/2016 Second child is a son Healthy 06/02/2016 Second sister in good health 06/02/2016 Sister in good health Diagnosed breast cancer at age 32 06/02/2016 Reports [facility] breast ca, depression, HTN 07/03/2014 Mother DM (66) 07/03/2014 Review of Systems Review of Systems not supported for this document typeNo Review of Systems Recorded Mental Status Mental Status not supported for this document type Description Short term memory recall not impaired No memory lapses or loss Functional Status Functional Status not supported for this document typeNo Functional Status Recorded Physical Exam Physical Exam not supported for this document typeNo Physical Exam Recorded Immunizations Includes: Immunizations in patient's chart Vaccine Dose # Date Site Reaction(s) Status Source Influenza, seasonal, injectable 1 06/03/2015 Left Arm Complete (Administered) [facility] Influenza, seasonal, injectable 2 06/01/2016 Left Deltoid Complete (Administered) [facility] Note: VIS Given Influenza, seasonal, injectable 3 06/12/2017 [facility]Pneumovax 23[facility] 1 07/06/2006 Complete (Reported ) Patient [id number] 1 06/12/2017 Left Deltoid Complete (Admini stered) [facility] Tdap (> 7 yrs) 1 02/26/2013 Complete (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 Ronni Lara MD [facility] 09/03/2020 7:48AM 9:00AM Routine History and Physical Senior Citizen (65-80 Yrs) ANNUAL PE-followup Mayra Lara MD [facility], [facility] 09/03/2020 7:48AM 9:00AM Routine History and Physical Senior Citizen (65-80 Yrs) followup Mayra Lara MD [facility], [facility] 09/03 7:48AM 9:00AM Acute Renal Failure, Polyneuropathy, Dep ression, Diabetes with Diabetic Nephropathy, Ankylosing Spondylitis of Lumbosacral Region, Male Erectile Dysfunction, Essential Hypertension Benign, Hyperlipidemia, Psoriasis Arthropathic, Lumbago with Sciatica, Esophageal Reflux followup Mayra Lara MD [facility], [facility] 06/01 7:51AM 8:12AM Acute Renal Failure, Polyneuropathy, Dep ression, Diabetes with Diabetic Nephropathy, Ankylosing Spondylitis of Lumbosacral Region, Psoriasis Arthropathic, Male Erectile Dysfunction followup Mayra Lara MD [facility], [facility] 04/02 7:46AM 8:15AM Esophagitis Acute, Acute Renal Failure, Polyneuropathy, Essential Hypertension Benign, Depression, Hyperlipidemia, Diabetes with Diabetic Nephropathy, Ankylosing Spondylitis of Lumbosacral Region, Psoriasis Arthropathic, Lumbago with Sciatica, Male Erectile Dysfunction, Diarrhea followup Mayra Lara MD [facility], [facility] 02/26 7:47AM 8:20AM Esophagitis Acute, Polyneuropathy, Essen tial Hypertension Benign, Depression, Hyperlipidemia, Diabetes with Diabetic Nephropathy, Psoriasis Arthropathic, Lumbago with Sciatica, Male Erectile Dysfunction, Ankylosing Spondylitis of Lumbosacral Region, Acute Renal Failure followup Mayra Lara MD [facility], [facility] 11/27 7:43AM 8:08AM Esophagitis Acute, Polyneuropathy, Essen tial Hypertension Benign, Depression, Hyperlipidemia, Diabetes with Diabetic Nephropathy, Psoriasis Arthropathic, Lumbago with Sciatica, Male Erectile Dysfunction Insurance Includes: Active Insurance Policies Plan Name Member ID Group # Subscriber Relationship Effective Da adam 1 - [facility]- [id number] Kameron Foster Self 07/16/2017 - Unknown Advance Directives Includes: Current Advance DirectivesNo Advance Directives Recorded Health Concerns Includes: Active Health ConcernsNo Active Health Concerns Recorded Goals Includes: Active GoalsNo Active Goals Recorded Interventions Includes: Interventions for active GoalsNo Interventions Recorded Evaluations & Outcomes Includes: Evaluations & Outcomes for active GoalsNo Outcomes Recorded
--- OUTSIDE RECORDS SUMMARY | 2021-05-19 06:28 | CCD ---
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 Angle Huber Shambo RPA Active Depression 01/07/2002 - 12:00AM Angle Huber Shambo RPA Active Obesity 01/07/2002 - 12:00AM Angle Huber Shambo RPA Active Psoriatic Arthropathy 01/07/2002 - 12:00AM Angle Huber Sh ambo RPA Inactive Note: Enbrel in past; Humira started 2009 Psoriasis Arthropathic 01/07/2002 - 12:00AM Tyler Cancino MD Active Note: r/u [facility] rheum Diabetes Mellitus Type 2 - Uncomplicated, Uncontrolled 2 - 12:00AM Maria Teresa Elkins ANP- Inactive Note: started rx 2008 Plan of Treatment Future Appointments Date Time Location Provider followup 05/25/2021 8:20AM [facility], [facility] Irena Damon [facility] Future Tests Order Diagnosis Results Due Ordering Provid er Lab A1C 02/28/21 Mayra quinones MD Lab CMP 02/28/21 Mayra quinones MD Referral Travel Clerk Gastro-esophageal re flux disease without esophagitis 05/29/21 Mayra Lara MD Lab A1C 05/29/21 Mayra quinones MD Lab CMP 05/29/21 Mayra quinones MD Lab Lipid Panel 05/29/21 Mayra quinones MD Findings Encounter Date Education [...] improved s/p discontinuation of naproxen and metformin. BMP pending today [Acute kidney failure, unspecified] followup with Mayra Lara MD 02/28/2021 Ankylosing lumbosacral spondylitis which is inadequately controlled On gabapentin TID [Ankylosing spondylitis of lumbosacral region] followup with Mayra Lara MD 02/28/2021 Arthropathic psoriasis which is stable On Humira every 2 weeks- which has helped both with pain and psoriasis rash. Follows with Dr. 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 A1c pending today. Metformin previously discontinued due to acute renal failure. Lantus 58 units HS. Continue Trulicity, Jardiance, Continue diabetic diet. Add mealtime SSI for better glucose control and monitoring. Follow-up in 3 months [Other specified diabetes mellitus with diabetic nephropathy] followup with Mayra Lara MD 02/28/2021 Esophageal reflux which is worsening no w interfering with every meal, regurgitation of mucus with every meal. No improvement with pantoprazole 40mg daily. Will refer to GI for further evaluation and treatment [Gastro-esophageal reflux disease without esophagitis] followup with Mayra Lara MD 02/28/2021 Hyperlipidemia which is stable Stable o n simvastatin, will switch to atorvastatin for high intensity therapy [Hyperlipidemia, unspecified] followup with Mayra Lara MD 02/28/2021 Lumbago with sciatica which is inadequat nevaeh controlled [Lumbago with sciatica, left side] followup with Mayra Lara MD 02/28/2021 Male erectile dysfunction which is stabl e Following with urology [Other male erectile dysfunction] followup with Mayra Lara MD 02/28/2021 Polyneuropathy which is inadequately con trolled On gabapentin to 300mg PO TID [Polyneuropathy, unspecified] followup with Mayra Lara MD 02/28/2021 Acute renal failure which is showing con [...] psoriasis rash. Follows with Dr. Gustafson in [place] [Arthropathic psoriasis, unspecified] followup with Mayra Lara [...] medical examination without abnormal findings] ANNUAL PE-followup with Mayra Lara MD 09/03/2020 Acute renal [...] psoriasis rash. Follows with Dr. Gustafson in [place] [Arthropathic psoriasis, unspecified] followup with Mayra Lara [...] rash. Currently following with Dr. Gustafson in [place], requests referral to Dr. Bethea today as he is not happy with the care he is receiving in [place]. [Arthropathic psoriasis, unspecified] followup with Mayra Lara [...] MD 04/02/2020 Diarrhea Continue loperamide. Will gayathri tor for improvement in symptoms with discontinuation of [...] psoriasis rash. Follows with Dr. Gustafson in [place] [Arthropathic psoriasis, unspecified] followup with Mayra Lara [...] psoriasis rash. Follows with Dr. Gustafson in [place] [Arthropathic psoriasis, unspecified] followup with Mayra Lara [...] psoriasis rash. Follows with Dr. Gustafson in [place] [Arthropathic psoriasis, unspecified] followup with Mayra Lara [...] psoriasis rash. Follows with Dr. Gustafson in [place] [Arthropathic psoriasis, unspecified] followup with Mayra Lara [...] psoriasis rash. Follows with Dr. Gustafson in [place] [Arthropathic psoriasis, unspecified] followup with Mayra Lara [...] MD 12/02/2018 Male erectile dysfunction Refer to uromorales [facility]hill[facility] for further evaluation and treatment [Other male erectile dysfunction] followup with Mayra Lara MD 12/02/2018 Polyneuropathy Improving with gabapenti n to 300mg PO BID [Polyneuropathy, unspecified] followup with Mayra Lara MD 12/02/2018 Arthropathic psoriasis Is receiving Hum shantel every 2 weeks- which has helped both with pain and psoriasis rash. Follows with Dr. Gustafson in [place] [Arthropathic psoriasis, unspecified] followup with Mayra Lara [...] and psoriasis rash followup with Maria Teresa FLANNERY-JESENIA 06/11/2018 Benign essential hypertension -Blood pr essure well controlled with enalapril, hydralazine, and metoprolol followup with Maria Teresa GARCIA 06/11/2018 Depression -Continue with sertraline 10 0 mg daily, reports has more difficulty with depression during the winter months and rainy dark days, continues to stay as active as possible followup with Maria Teresa BRAGA 06/11/2018 Diabetes with diabetic nephropathy - he moglobin A1c slightly improved to 9.0, patient is taking Trulicity, Lantus, metformin, . Never started Jardiance 10 mg 1 tablet daily as recommended, taking 71 units of Lantus insulin followup with Maria Teresa Elkins ANP-BC 06/11/2018 Hyperlipidemia -Lipids are excellent in 09/02, continu e simvastatin followup with [facility] 06/11/2018 Polyneuropathy Taking gabapentin 100 mg twice daily, will increase to 2 tabs at bedtime to see if legs are more comfortsble followup with [facility] 06/11/2018 Acute upper respiratory infection with some features of allergies. Start saline nasal spray at least twice daily, continue with claritin daily. Start ceftin 250mg 1 tab twice daily. Will obtain chest xray, currently being treated for pneumonia, he had some rhonchi remaining after cough sick visit with [facility] 04/25/2018 Arthropathic psoriasis Is receiving Hum shantel every 2 weeks- which has helped both with pain and psoriasis rash followup with [facility] 03/05/2018 Benign essential hypertension -Blood pr essure well controlled with enalapril, hydralazine, and metoprolol followup with [facility] 03/05/2018 Depression -Continue with sertraline 10 0 mg daily, reports has more difficulty with depression during the winter months and rainy dark days, continues to stay as active as possible followup with [facility] 03/05/2018 Diabetes with diabetic nephropathy - he moglobin A1c slightly improved to 9.0, patient is taking Trulicity, Lantus, metformin, and Prandin. AddedJardiance 10 mg 1 tablet daily to regimen 3 weeks ago, has not yet started this medication, taking 71 units of Lantus insulin followup with [facility] 03/05/2018 Hyperlipidemia -Lipids are excellent in 09/02, continu e simvastatin followup with [facility] 03/05/2018 Polyneuropathy Taking gabapentin 100 mg twice daily which has helped with discomfort followup with [facility] 03/05/2018 Constipation Patient recommended to use MiraLAX 1/2-1 capful daily, patient to titrate according to need. Recommend he try to avoid frequent use of laxatives sick visit with [facility] 02/12/2018 Peripheral neuropathy Related to diabet [...] his falls sick visit with Maria Teresa Elkins [facility] 02/12/2018 Arthropathic psoriasis Is receiving Hum shantel every 2 weeks- which has helped both with pain and psoriasis rash followup with Maria Teresa M [facility] 12/06/2017 Benign essential hypertension -Blood pr essure well controlled with enalapril, hydralazine, and metoprolol followup with Maria Teresa Thu [facility] 12/06/2017 Depression -Continue with sertraline 10 0 mg daily, reports has more difficulty with depression during the winter months and rainy dark days, continues to stay as active as possible followup with Maria Teresa M [facility] 12/06/2017 Diabetes with diabetic nephropathy - he moglobin A1c has worsened to 9.4, patient is taking Trulicity, Lantus, metformin, and Prandin. Will add Jardiance 10 mg 1 tablet daily to regimen followup with Maria Teresa Andino [facility] 12/06/2017 Hyperlipidemia -Lipids are excellent in 09/02, continu e simvastatin followup with [facility] 12/06/2017 Polyneuropathy Taking gabapentin 100 mg twice daily which has helped with discomfort followup with [facility] 12/06/2017 Arthropathic psoriasis Is receiving Hum shantel every 2 weeks- which has helped both with pain and psoriasis rash followup with Maria Teresa M [facility] 08/24/2017 Benign essential hypertension -Blood pr essure well controlled with enalapril, hydralazine, and metoprolol followup with Maria Teresa M [facility] 08/24/2017 Depression -Continue with sertraline 10 0 mg daily, reports has a bit more difficulty with depression during the winter months, continues to stay as active as possible followup with Maria Teresa M [facility] 08/24/2017 Diabetes with diabetic nephropathy -Res tarted Prandin therapy, hemoglobin A1c improved from 9.5-8.6, patient is taking Trulicity, Lantus, metformin, and Prandin. Patient thinks he can improve hemoglobin A1c with diet and would like to try to do so followup with Maria Teresa M [facility] 08/24/2017 Hyperlipidemia -Lipids are excellent, continue simvas tatin followup with Maria Teresa Andino [facility] 08/24/2017 Polyneuropathy Taking gabapentin 100 mg twice daily which has helped with discomfort followup with Maria Teresa Andino [facility] 08/24/2017 Arthropathic psoriasis Is receiving Hum shantel every 2 weeks-rash essentially resolved with this medication, holds also with discomfort followup with Maria Teresa Andino [facility] 06/12/2017 Benign essential hypertension -Blood pr essure well controlled with enalapril, hydralazine, and metoprolol followup with Maria Teresa Thu [facility] 06/12/2017 Depression -Continue with sertraline 10 0 mg daily, reports has a bit more difficulty with depression during the winter months, feels he is handling it okay, states he will not allow himself to feel sorry about his health, continues to stay as active as possible followup with Maria Teresa Andino [facility] 06/12/2017 Diabetes with diabetic nephropathy Hemo globin A1c has worsened from 8.2 in 11/29 to 9.5, last microalbumin in 09/01 was 72. Spoke with pt who would rather restart Prandin 0.5 mg with meals as before and see if this will improve glucoses. Followup in 3 months followup with Maria Teresa Andino [facility] 06/12/2017 Hyperlipidemia Will recheck at next appointment, not fasting today followup with Maria Teresa Thu [facility] 06/12/2017 Polyneuropathy Taking gabapentin 100 mg twice daily which has helped with discomfort followup with Maria Teresa M [facility] 06/12/2017 No tobacco use never smoked Annual Wellness SUBSEQ UENT visi t(> 1yr since prev. with Maria Teresa Andino [facility] 06/12/2017 Routine adult history and physical (18 - 64 yrs) An nual Wellness SUBSEQUENT visi t(> 1yr since prev. with Maria Teresa Andino [facility] 06/12/2017 Arthropathic psoriasis Is receiving Hum shantel every 2 weeks-rash essentially resolved with this medication followup with Maria Teresa M [facility] 12/12/2016 Benign essential hypertension -blood pr essure is elevated today, pt reports he forgot to take his medications this am followup with Maria Teresa Thu [facility] 12/12/2016 Depression -Continue with sertraline 10 0 mg daily, reports has a bit more difficulty with depression during the winter months, feels he is handling it okay, but constant rain has been very difficult [facility] Polyneuropathy Taking gabapentin 100 mg once daily which has helped with discomfort, will increase to 100mg twice daily to decrease discomfort followup with Maria Teresa Elkins [facility] 12/12/2016 Pure hypercholesterolemia -lipids stable in 05-31 fol lowup with Maria Teresa Andino [facility] 12/12/2016 Type 2 diabetes mellitus - uncomplicated , uncontrolled -Hemoglobin A1c has improved from 9.2 to 8.2 on Trulicity dose to 1.5 mg subcutaneously once weekly. Admits to some dietary indiscretions and will work on those, is generally more active in the summer, has not been because of the increased rain [facility] Arthropathic psoriasis Is receiving Hum shantel every 2 weeks-he has improved with this medication followup with Maria Teresa Elkins [facility] 08/31/2016 Benign essential hypertension Stable [facility] Depression -Continue with sertraline 10 0 mg daily, reports has a bit more difficulty with depression during the winter months, feels she is handling it okay and looking forward to longer daylight hours [facility] Polyneuropathy Taking gabapentin 100 mg once daily which has helped with discomfort followup with Maria Teresashahab Elkins [facility] 08/31/2016 Psoriasis Has improved with Humira injections [...] make improvements in diet followup with Maria Teresashahab Elkins [facility] 08/31/2016 Arthropathic psoriasis Is receiving Hu' ramona every 2 weeks-he has improved with this medication followup with Maria Teresa Elkins [facility] 06/01/2016 Benign essential hypertension followup with Maria Teresa BLAKELY [facility] 06/01/2016 Depression -Depression score was high a t 15, counseling services offered, he did not want to increase or change medication followup with Maria Teresa Andino [facility] 06/01/2016 Palpitations Describes pounding pulse, discussed Holter monitor, patient would like to wait for now. He's not aware of skipped beats. Will check thyroid followup with Maria Teresa Andino [facility] 06/01/2016 Polyneuropathy Patient has decrease kristi apentin 200 mg once daily, for intermittent jabbing generalized discomfort. He will increase gabapentin to 100 mg twice daily followup with Maria Teresa M [facility] 06/01/2016 Pruritus Behind the left ear, uncertain of cause, skin is somewhat dry. He will apply skin moisturizer to see if this improves followup with [facility] 06/01/2016 Pure hypercholesterolemia followup with [facility] 06/01/2016 Type 2 diabetes mellitus - uncomplicated, uncontrolled -Hemoglobin A1c is 9.6 followup with Maria Teresa Thu [facility] 06/01/2016 No tobacco use Annual Wellness SUBSEQUEN T visi t(> 1yr since prev. with Maria Teresa M [facility] 06/01/2016 Routine adult history and physical (18 - 64 yrs) An nual Wellness SUBSEQUENT visi t(> 1yr since prev. with Maria Teresa Thu [facility] 06/01/2016 Arthropathic psoriasis fair control. Seeing Rheumato [...] monoplegia was seen new patient with Angle Armendarizbo RPA 07/03/2014 Depression new patient with Angle Huber Shambo RPA Hypercholesterolemia new patient with Angle Huber Shambo [facility] Obesity new patient with Angle Huber Shambo [facility] Type 2 diabetes mellitus - uncomplicated, uncontrolled new patient with Angle Armendarizbo [facility] 07/03/2014 Instructions Instructions not supported for this document typeNo Instructions Recorded Medical Equipment - Implanted Devices Includes: Current and historical DevicesNo Medical Equipment Recorded Medications Includes: Current and historical Medications Current Medications (continue as prescribed) Atorvastatin Calcium 40 MG Oral Tablet 02/28/2021 P rovider: Mayra Lara MD Diagnosis: 1 PO QD BD Pen Needle Mini U/F 31G X 5 MM Miscellaneous 02/28/2021 Provider: Mayra Lara MD Diagnosis: Other specified diab etes mellitus without complications Use 1 needle daily with Lantus pen. Dx:E13.9 HumaLOG KwikPen 200 UNIT/ML Subcutaneous Solution Pen-inject or 02/28/2021 Provider: Mayra Lara MD Diagnosis: as directed Administer with meals TID AC per sliding scale provided in office MDD: 36 units Trulicity 1.5 MG/0.5ML Subcutaneous Solution Pen-injector Provider: Mayra Lara MD Diagnosis: Inject 0.5ml under the skin once a week Pantoprazole Sodium 40 MG Oral Tablet Delayed Release 2020 Provider: Mayra Lara MD Diagnosis: 1 PO QD Diclofenac Sodium 1% External Gel 10/20/2020 Provid er: Diagnosis: FreeStyle Lite Test In Vitro Strip 09/13/2020 Provi olga: Lalit Elkins PA-C Diagnosis: as directed. Tests QD and prn Dx- E13.21 Jardiance 25 MG Oral Tablet 09/03/2020 Provider: Mayra Lara MD Diagnosis: 1 PO QD Gabapentin 300 MG Oral Capsule 09/03/2020 Provider: Mayra Lara MD Diagnosis: 1 PO TID Metoprolol Tartrate 50 MG OR TABS 06/12/2020 [...] 25 MG Oral Tablet 03/17/2020 Provid er: Myara Lara MD Diagnosis: Essential (primary) hypertension TAKE ONE TABLET BY MOUTH TWICE A DAY Sertraline HCl 100 MG Oral Tablet 03/17/2020 Provid er: Mayra Lara MD Diagnosis: TAKE ONE TABLET BY MOUTH EVERY DAY FreeStyle Lancets MISC 07/31/2014 Provider: Harshad Menjivar MD Diagnosis: DM,adult [...] Elkins PA-C Diagnosis: 1 cap po bid Simvastatin 10 MG OR TABS 06/12/2020 - 02/28/2021 Provider: Lalit Elkins PA-C Diagnosis: TAKE ONE TABLET BY MOUTH EVERY DAY Gabapentin 300 MG Oral Capsule 06/01/2020 - 06/14/2020 Provi olga: Mayra Lara MD Diagnosis: 1 PO TID metFORMIN HCl 1000 MG Oral Tablet 03/17/2020 - 04/02/2020 Pr ovider: Mayra Lara MD Diagnosis: Type 2 diabetes paul itus without complications TAKE ONE TABLET BY MOUTH TWICE A DAY Trulicity 1.5 MG/0.5ML Subcutaneous Solution Pen-injec tor 01/13/2020 - 12/27/2020 Provider: Mayra Lara MD Diagnosis: inject subcutaneously once weekly Jardiance 10 MG Oral Tablet 12/25/2019 - 09/03/2020 Provider : Mayra Lara MD Diagnosis: 1 PO QD BD Pen Needle Mini U/F 31G X 5 MM Miscellaneous 12/24/2019 - 02/28/2021 Provider: Mayra Lara MD Diagnosis: Other specified diab etes mellitus without complications Use 1 needle daily with Lantus pen. Dx:E13.9 Naproxen 500 MG Oral Tablet 09/29/2019 - [...] 09/03/2020 Provid er: Mayra Lara MD Diagnosis: Famotidine 20MG Oral Tablet 05/30/2019 - 09/03/2020 Provider : Lalit Elkins PA-C Diagnosis: Esophagitis, unspeci fied Take one PO qhs Cefuroxime Axetil 500MG Oral Tablet 05/30/2019 - 06/06/2019 Provider: Lalit Elkins PA-C Diagnosis: Esophagitis, unspeci fied Take 1 tablet bid for 7 days Jardiance 10MG Oral Tablet 03/24/2019 - 11/28/2019 [...] Tablet 06/27/2018 - 06/11/2018 Provider: Maria Teresa FLANNERY-BC Diagnosis: as directed 1.5 tabs PO BID Naproxen 500MG Oral Tablet 06/12/2018 - 03/11/2019 Provider: Maria Teresa GARCIABC Diagnosis: one BID prn pain, MDD 2 Gabapentin 100MG Oral Capsule 06/11/2018 - 08/28/2018 Provid er: Maria Teresa M Severo ANP-BC Diagnosis: 1 tab in am, 2 [...] Pro vider: Maria Teresa Elkins ANP-BC Diagnosis: Essential (primary) hypertension 1 PO BID Cialis 5MG Oral Tablet 06/11/2018 - 09/03/2020 Provider: Maria Teresa Elkins ANP-BC Diagnosis: Take one tab daily Enalapril Maleate 20MG Oral Tablet 06/11/2018 - 05/30/2019 P rovider: Maria Teresa Elkins ANP-BC Diagnosis: Essential (primary) hypertension 1 PO BID FreeStyle Lite Test In Vitro Strip 05/23/2018 - 05/30/2019 P rovider: Maria Teresa Elkins ANP-BC Diagnosis: as directed Test Daily and PRN Dx:E11.65 Accu-Chek FastClix Lancets Miscellaneous 05/23/2018 - 2018 Provider: Maria Teresa Elkins ANP-BC Diagnosis: use as directed. Test QD and PRN E11.65 Cefuroxime Axetil 250MG Oral Tablet 04/25/2018 - 06/11/2018 Provider: Maria Teresa Eklins ANP-BC Diagnosis: Take 1 tab every 12 hours with food Naproxen 500MG Oral Tablet 03/22/2018 - 03/05/2018 Provider: Maria Teresa Elkins ANP-BC Diagnosis: one BID prn pain, MDD 2 BD Pen Needle Mini U/F 31G X 5 MM Miscellaneous 03/05/2018 - 02/28/2019 Provider: Maria Teresa Elkins ANP-BC Diagnosis: Other specified diab etes mellitus without complications Use 1 needle daily with Lantus pen. Dx:E13.9 Oxycodone-Acetaminophen 5-325MG Oral Tablet 03/05/2018 - 11/2017 Provider: Maria Teresa Elkins ANP-BC Diagnosis: Low back pain 1 tab q6h prn pain. MDD 4 Ref #: [id number] Oxycodone-Acetaminophen 5-325MG Oral Tablet 03/05/2018 - Provider: Maria Teresa Elkins ANP- Diagnosis: Low back pain 1 tab q6h prn pain. MDD 4 Ref #: [id number] Trulicity 1.5MG/0.5ML Subcutaneous Solution Pen-inject or 03/05/2018 - 12/02/2018 [facility] Diagnosis: inject subcutaneously once weekly Oxycodone-Acetaminophen 5-325MG Oral Tablet 02/12/2018 - Provider: [facility] Diagnosis: Low back pain 1 tab q6h prn pain. MDD 4 Ref #: [id number] Cialis 5MG Oral Tablet 12/18/2017 - 06/11/2018 Provider: [facility] Diagnosis: Take one tab daily Jardiance 10MG Oral Tablet 12/07/2017 - 06/11/2018 Provider: [facility] Diagnosis: 1 PO QD Trulicity 1.5MG/0.5ML Subcutaneous Solution Pen-inject or 12/06/2017 - 03/05/2018 Provider: [facility] Diagnosis: inject subcutaneously once weekly Lantus SoloStar 100UNIT/ML Subcutaneous Solution Pen-i njector 12/06/2017 - 12/02/2018 Provider: [facility] Diagnosis: Type 2 diabetes paul itus with hyperglycemia as directed 71 units subq qd. Gabapentin 100MG Oral Capsule 12/05/2017 - 06/11/2018 Provid er: [facility] Diagnosis: 1 tab twice daily Naproxen 500 MG OR TABS 09/10/2017 - 02/12/2018 Provider: [facility] Diagnosis: one BID prn pain, MDD 2 Sertraline HCl 100MG Oral Tablet 08/24/2017 - 06/11/2018 Pro vider: [facility] Diagnosis: 1 PO QD Metoprolol Tartrate 50MG Oral Tablet 08/24/2017 - 06/11/2018 Provider: [facility] Diagnosis: as directed 1.5 tabs PO BID HydrALAZINE HCl 25MG Oral Tablet 08/24/2017 - 06/11/2018 Pro vider: Maria Teresa Elkins ANP-BC Diagnosis: 1 PO BID MetFORMIN HCl 1000MG Oral Tablet 08/24/2017 - 06/11/2018 Pro vider: Maria Teresa Elkins ANP-BC Diagnosis: Type 2 diabetes paul itus without complications 1 PO BID Enalapril Maleate 20MG Oral Tablet 08/24/2017 - 06/11/2018 P rovider: Maria Teresa Elkins ANP- Diagnosis: Essential (primary) hypertension 1 PO BID Simvastatin 10MG Oral Tablet 08/24/2017 - 08/28/2018 Provide r: Maria Teresa Elkins ANPBC Diagnosis: 1 PO QD Trulicity 1.5 MG/0.5ML SC SOPN 08/21/2017 - 12/06/2017 Provi olga: [facility]: inject subcutaneously once weekly Lantus SoloStar 100UNIT/ML Subcutaneous Solution Pen-i njector 06/12/2017 - 12/06/2017 Provider: Maria Teresa Elkins ANP- Diagnosis: Type 2 diabetes paul itus with hyperglycemia as directed 71 units subq qd. BD Pen Needle Mini U/F 31G X 5 MM Miscellaneous 06/12/2017 - 03/05/2018 Provider: Maria Teresa Elkins ANP- Diagnosis: Other specified diab etes mellitus without complications Use 1 needle daily with Lantus pen. Dx:E13.9 Lantus SoloStar 100 UNIT/ML SC SOPN 03/13/2017 - 06/12/2017 Provider: Maria Teresa Elkins ANP- Diagnosis: Type 2 diabetes paul itus with hyperglycemia as directed 71 units subq qd. Trulicity 1.5 MG/0.5ML SC SOPN 03/05/2017 - 08/31/2016 Provi olga: [facility] Diagnosis: inject subcutaneously once weekly Lantus [...] - 08/24/2017 Provide r: Maria Teresa Elkins ANP-BC Diagnosis: 1 PO QD Metoprolol Tartrate 50 [...] 08/31/2016 - 12/12/2016 Provider: Maria Teresa Elkins ANP-BC Diagnosis: 1 PO QD Enalapril Maleate 20 [...] Tablet 03/16/2016 - 04/06/2016 Provider: Maria Teresa Andino Severo ANP-BC Diagnosis: one BID prn prn pain, MDD 2 Naproxen 500 MG Tablet 12/15/2015 - 03/16/2016 Provider: Tyler Samson MD Diagnosis: one BID prn prn pain, MDD 2 Lantus SoloStar 100 UNIT/ML SC SOPN 12/03/2015 - 12/12/2016 Provider: Tyler Samson MD Diagnosis: Type 2 diabetes paul itus with hyperglycemia 71 units subq qd. Metoprolol Tartrate 50 MG Tablet 12/02/2015 - 08/31/2016 Pro vider: Tyler Samson MD Diagnosis: as directed 1.5 tabs PO BID Sertraline HCl 100 MG Tablet 12/02/2015 - 08/31/2016 Provide r: Tyler Samson MD Diagnosis: 1 PO QD Prandin 0.5 MG Tablet 12/02/2015 - 08/31/2016 Provider: Tyler Samson MD Diagnosis: take one tab, po, 15-30 minutes before each meal HydrALAZINE HCl 25 MG Tablet 12/02/2015 - [...] Tyler Samson MD Diagnosis: 1 PO QD MetFORMIN HCl 1000 MG Tablet 12/02/2015 - [...] one BID prn prn pain, MDD 2 HydrALAZINE HCl 25 MG Tablet 09/15/2015 - [...] q4-6h prn pain. MDD 8. Reference #: [id number] MetFORMIN HCl 1000 MG Tablet 11/30/2014 - 06/03/2015 Provide r: Tyler Samson MD Diagnosis: 1 PO BID HydrALAZINE HCl 25 MG Tablet 11/30/2014 - 06/03/2015 Provide r: Tyler Samson MD Diagnosis: 1 PO BID Enalapril Maleate 20 MG Tablet 11/30/2014 - 12/02/2015 Provi olga: Tyler Samson MD Diagnosis: 1 PO BID Prandin 0.5 MG Tablet 11/30/2014 - 06/03/2015 Provider: Tyler Samson MD Diagnosis: take one tab, po, 15-30 minutes before each meal Lantus SoloStar 100 UNIT/ML Solution Pen-injector 11/30/2014 - 06/03/2015 Provider: Tyler Samson MD Diagnosis: as directed 69 units SC daily Sertraline HCl 100 MG Tablet 11/30/2014 - 12/02/2015 Provide r: Tyler Samson MD Diagnosis: 1 PO QD Simvastatin 10 MG Tablet 11/30/2014 - 12/02/2015 Provider: Tyler Samson MD Diagnosis: 1 PO QD Metoprolol Tartrate 50 MG Tablet 11/30/2014 - 12/02/2015 Pro vider: Tyler Samson MD Diagnosis: as directed 1.5 tabs PO BID Gabapentin 100 MG Capsule, conventional [...] tab, po, 15-30 minutes before each meal metFORMIN HCl 1000 MG TABS 07/31/2014 - 11/30/2014 Provider: Angle Menjivar RPA Diagnosis: Enalapril Maleate 20 MG OR TABS 07/31/2014 - 11/30/2014 Prov ider: Angle Menjivar RPA Diagnosis: metFORMIN HCl 1000 MG TABS 07/31/2014 - 07/19/2014 Provider: Angle Menjivar RPA Diagnosis: hydrALAZINE HCl 25 MG OR TABS 07/31/2014 - 11/30/2014 Provid er: Angle Menjivar RPA Diagnosis: Gabapentin 100 MG [...] type.uncontrolled Test Blood Sugar Daily and PRN Naproxen 500 MG OR TABS 07/31/2014 - 03/29/2015 Provider: Angle Menjivar RPA Diagnosis: prn pain Sertraline HCl 100 MG OR TABS 07/31/2014 - 11/30/2014 Provid er: Angle Menjivar RPA Diagnosis: Metoprolol Tartrate 50 MG OR TABS 07/31/2014 - 11/30/2014 Pr ovider: Angle Menjivar RPA Diagnosis: 1.5 tabs PO BID Simvastatin 10 MG OR TABS 07/31/2014 - 11/30/2014 Provider: Angle Menjivar RPA Diagnosis: Accu-Chek Araceli Plus STRP 07/28/2014 - 07/31/2014 Provide r: Harshad Menjivar MD Diagnosis: DM,adult onset TYPE II unspecified type.uncontrolled Test daily and PRN Dx:250.02 Lantus SoloStar 100 UNIT/ML SC SOPN 07/03/2014 - 10/07/2014 Provider: Diagnosis: 69 units SC daily NovoLOG FlexPen 100 UNIT/ML SC SOPN 07/03/2014 - 09/02/2014 Provider: Diagnosis: 5 units SC TID (prior to meals) BD Disp Needle 30G X 1" [facility] [place] 07/03/2014 - 04/16/2015 Provide r: Jair Diego MD Diagnosis: BD Disp Needle 30G X 1" [facility] [place] 06/20/2014 - 07/03/2014 Provide r: Jair Diego [...] TABS 02/27/2014 - 07/19/2014 Prov ider: Diagnosis: metFORMIN HCl 1000 MG TABS 02/27/2014 - 07/19/2014 Provider: Diagnosis: Accu-Chek Araceli STRP 02/21/2013 - 07/31/2014 Provider: Diagnosis: 1 strip inj QID Medications Administered Includes: Administered Medications in patient's chartNo Administered Medications Recorded Vital Signs Includes: Vital Signs from 02/29/2020 through 02/28/2021 Vital Name 02/28/2021 08:10A 11/30/2020 08:13A 09/03/2020 08:12A 09/03/2020 08:11A 09/03/2020 08:08A Blood Pressure Sitting (mmHg) 122/72 138/67 130/70 130/70 130/70 Pulse Rate-Sitting (bpm) 68 66 72 72 72 Respiration Rate (breaths/min) 20 18 18 18 18 Height (in) 68.25 68.25 68.25 68.25 68.25 Weight (lb) 217.6 218 223 223 223 Body Mass Index (kg/m2) 32.8 32.9 33.7 33.7 3 3.7 Body Surface Area (m2) 2.12 2.13 2.15 2.15 2. 15 Oxygen Saturation (%) 96 96 96 Vital Name 06/01/2020 07:53A 04/02/2020 07:50A Blood Pressure Sitting (mmHg) 124/60 130/58 Pulse Rate-Sitting (bpm) 64 64 Respiration Rate (breaths/min) 22 22 Height (in) 68.25 68.25 Weight (lb) 212 212 Body Mass Index (kg/m2) 32.0 32.0 Body Surface Area (m2) 2.10 2.10 Results Includes: Results from 02/29/2020 through 02/28/2021 CMP [facility] Ordered by Mayra Lara MD on 11/29/[address] [place] [address], [address] Collected: 11/29/2020 Reported: 11/29/2020 11:57 tel : ext. 1500 Albumin 4.3 g/dl (3.4-5.0) None [...] by Mayra Lara MD on 11/29/2020 [address] [place], [address] Collected: 11/29/2020 Reported: 11/29/2020 11:57 tel :[phone] ext. 1500 Hgba1c 10.0 na (5.0-6.0) H (High) Note: Responsible Observer: KM Reviewed by Mayra Lara MD on 11/29; All test results are final unless otherwise noted. ACR [facility] Ordered by Mayra Lara MD on 09/02/2020 [address] [place], [address] Collected: 09/02/2020 Reported: 09/02/2020 13:09 tel :[phone] ext. 1500 ACR 144.6 ug/mg (0-30) H (High) Note: Responsible Observer: KM Micro alb 127.0 mg/L (0-30) H (High) Note: Responsible Observer: KM Urine Creat 87.8 mg/dl (34-300) None Note: Responsible Observer: KM Reviewed by Mayra Lara MD on 09/03; All test results are final unless otherwise noted. CMP [facility] Ordered by Mayra Lara MD on 09/02/2020 [address] [place], [address] Collected: 09/02/2020 Reported: 09/02/2020 13:09 tel :[phone] ext. 1500 Albumin 4.2 g/dl (3.4-5.0) None [...] by Mayra Lara MD on 09/02/2020 [address] [place], [address] Collected: 09/02/2020 Reported: 09/02/2020 13:09 tel :[phone] ext. 1500 Cholesterol 168 mg/dl (135-200) None [...] by Mayra Lara MD on 09/02/2020 [address] [place], [address] Collected: 09/02/2020 Reported: 09/02/2020 13:09 tel :[phone] ext. 1500 Hgba1c 10.3 na (5.0-6.0) H (High) Note: Responsible Observer: KM Reviewed by Mayra Lara MD on 09/03; All test results are final unless otherwise noted. PSA [facility] Ordered by Mayra Lara MD on 09/02/2020 [facility] [place], [address] Collected: 09/02/2020 Reported: 09/02/2020 13:09 tel :[phone] ext. 1500 PSA 1.02 I/L (0.0-4.0) None Note: Responsible Observer: KM Reviewed by Mayra Lara MD on 09/03; All test results are final unless otherwise noted. BMP [facility] Ordered by Mayra Lara MD on 05/31/[address] [place] [address], [address] Collected: 05/31/2020 Reported: 05/31/2020 14:29 tel :[phone] ext. 1500 Urea Nitrogen 21 mg/dl (6-20) [...] Ordered by Mayra Lara MD on 05/31/[address] [place] [address], [address] Collected: 05/31/2020 Reported: 05/31/2020 14:29 tel :[phone] ext. 1500 Hgba1c 8.2 na (5.0-6.0) H (High) Note: Responsible Observer: KM Reviewed by Mayra Lara MD on 06/01; All test results are final unless otherwise noted. BMP [facility] Ordered by Mayra Lara MD on 03/31/[address] [place] [address], [address] Collected: 03/31/2020 Reported: 03/31/2020 11:59 tel :[phone] ext. 1500 Urea Nitrogen 29 mg/dl (6-20) [...] 139 mmol/L (133-145) None Note: Responsible Observer: ERIS Reviewed by Mayra Lara MD on 03/31; All test results are final unless otherwise noted. 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) 06/15 Alcohol use occasional 07/03/2014 Never a smoker 07/03/2014 Not using drugs 07/03/2014 Procedures and Surgical History Includes: Procedures from 02/29/2020 through 02/28/2021 Procedures Code Diagnosis Performing Provider Service Location Service Date HgbA1C 88271 Other specified diabetes mellitu s with diabetic nephropathy Mayra Lara MD [facility], [facility] 11/29/2020 CMP-Complete Metabolic Profile 20354 Other spe cified diabetes mellitus with diabetic nephropathy Mayra Lara MD [facility], [facility] 11/29/2020 Venipuncture (routine) 08576 Other specified d iabetes mellitus with diabetic nephropathy Mayra Lara MD [facility], [facility] 021 - subseq't annual wellness exam(1 yr after Initial) G0439 Encntr for general adult medical exam w/o abnormal findings Mayra Lara MD [facility], [facility] 09/03/2020 -Annual depression screening- 15 min. (Distinct Sepe rate service-same day) G0444 Encntr for general adult medical exam w/ o abnormal findings, Encounter for screening for other disorder [facility] 09/03/2020 PSA -Prostate Screening once/yr(over age 50) G0103 Encounter for screening for malignant neoplasm of prostate [facility] 09/02/2020 Mircro Alb urine 75791 Other specified diab etes mellitus with diabetic nephropathy, Hyperlipidemia, unspecified Mayra Lara MD [facility], [facility] 09/02/2020 Creatinine: URINE 87810 Other specified diab etes mellitus with diabetic nephropathy, Hyperlipidemia, unspecified Mayra Lara MD [facility], [facility] 09/02/2020 Fasting Lipid Profile 81943 Other specified di abetes mellitus with diabetic nephropathy, Hyperlipidemia, unspecified Mayra Lara MD [facility], [facility] 09/02/2020 CMP-Complete Metabolic Profile 10273 Other spe cified diabetes mellitus with diabetic nephropathy, Hyperlipidemia, unspecified Mayra Lara MD [facility], [facility] 09/02/2020 HgbA1C 52303 Other specified diab etes mellitus with diabetic nephropathy, Hyperlipidemia, unspecified Mayra Lara MD [facility], [facility] 09/02/2020 Venipuncture (routine) 67062 Other specified d iabetes mellitus with diabetic nephropathy, Hyperlipidemia, unspecified Mayra Lara MD [facility], [facility] 09/02/2020 BMP-Basic Metabolic Profile 90926 Other specif ied diabetes mellitus with diabetic nephropathy Mayra Lara MD [facility], [facility] 05/31/2020 HgbA1C 72519 Other specified diabetes mellitu s with diabetic nephropathy Mayra Lara MD [facility], [facility] 05/31/2020 Venipuncture (routine) 79786 Other specified d iabetes mellitus with diabetic nephropathy Mayra Lara MD [facility], [facility] 020 BMP-Basic Metabolic Profile 39778 Other specif ied diabetes mellitus with diabetic nephropathy Mayra Lara MD [facility], [facility] 03/31/2020 Venipuncture (routine) 55713 Other specified d iabetes mellitus with diabetic nephropathy Mayra Lara MD [facility], [facility] 020 Surgical History Last Updated Prior [...] Diagnosed ALS in past year Father CAD, AR (57), had his first AR at age 41 06/02/2016 First child is a son JRShahab, had testicular cancer 06/02 First cousins Paternal first cousin on cancer, paternal first cousin testicular cancer, age 57, paternal cousin with breast cancer, 06/02/2016 Second child is a son Healthy 06/02/2016 Second sister in good health 06/02/2016 Sister in good health Diagnosed breast cancer at age 32 06/02/2016 Reports [facility] breast ca, depression, HTN 07/03/2014 Mother [...] injectable 1 06/03[facility]2015 [facility], [facility] 2 06/01/2016 Left Deltoid Complete (Administered) [facility] Note: VIS Given Influenza, seasonal, injectable 3 06/12/2017 Right [facility]V (Pneumovax 23) 1 07/06/2006 Complete (Reported ) Patient [id number] 1 06/12/2017 Left Deltoid Complete (Admini stered) [facility] Tdap (> 7 yrs) 1 02/26/2013 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 (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 Allergies Includes: Active, inactive, and resolved Allergies Substance Type Reaction Onset Date - Time Resolved Date - Ti me Status Methotrexate Allergy mental fogginess 08/31/2016 - 12:00AM Active Duramorph Intolerance pruritis 07/03/2014 - 12:00AM Act melanie Encounters Includes: Encounters from 02/29/2020 through 02/28/2021 Encounter Provider Location Date Check-In Time Check-Out Time D iagnosis followup Mayra Lara MD [facility], [facility] 02/28 8:03AM 8:29AM Acute Renal Failure, Polyneuropathy, Ess ential Hypertension Benign, Depression, Esophageal Reflux, Hyperlipidemia, Diabetes with Diabetic Nephropathy, Ankylosing Spondylitis of Lumbosacral Region, Psoriasis Arthropathic, Lumbago with Sciatica, Male Erectile Dysfunction followup Mayra Lara MD [facility], [facility] 11/30 8:05AM 8:27AM Acute Renal Failure, Polyneuropathy, Ess ential Hypertension Benign, Depression, Esophageal Reflux, Hyperlipidemia, Diabetes with Diabetic Nephropathy, Ankylosing Spondylitis of Lumbosacral Region, Psoriasis Arthropathic, Lumbago with Sciatica, Male Erectile Dysfunction [Patient Encounter] Mayra Lara MD 11/09/2020 021 9:09AM 09/03/2020 11:59PM Annual Wellness SUBSEQUENT visi t(> 1yr since prev. Ronni Lara MD [facility], [facility] 09/03/2020 7:48AM 9:00AM Routine History and Physical Senior Citizen (65-80 Yrs) ANNUAL PE-followup 30 Mayra Lara MD [facility], [facility] 09/03/2020 7:48AM 9:00AM Routine History and Physical Senior Citizen (65-80 Yrs) followup Mayra Lara MD [facility], [facility] 09/03 7:48AM 9:00AM Acute Renal Failure, Polyneuropathy, Dep ression, Diabetes with Diabetic Nephropathy, Ankylosing Spondylitis of Lumbosacral Region, Male Erectile Dysfunction, Essential Hypertension Benign, Hyperlipidemia, Psoriasis Arthropathic, Lumbago with Sciatica, Esophageal Reflux followup Mayra Lara MD [facility], [facility] 06/01 7:51AM 8:12AM Acute Renal Failure, Polyneuropathy, Dep ression, Diabetes with Diabetic Nephropathy, Ankylosing Spondylitis of Lumbosacral Region, Psoriasis Arthropathic, Male Erectile Dysfunction followup Mayra Lara MD [facility], [facility] 04/02 7:46AM 8:15AM Esophagitis Acute, Acute Renal Failure, Polyneuropathy, Essential Hypertension Benign, Depression, Hyperlipidemia, Diabetes with Diabetic Nephropathy, Ankylosing Spondylitis of Lumbosacral Region, Psoriasis Arthropathic, Lumbago with Sciatica, Male Erectile Dysfunction, Diarrhea Insurance Includes: Active Insurance Policies Plan Name Member ID Group # Subscriber Relationship Effective Da adam 1 - [facility]- [id number] Kameron Foster Self 07/16/2017 - Unknown Advance Directives Includes: Current Advance DirectivesNo Advance Directives Recorded Health Concerns Includes: Active Health ConcernsNo Active Health Concerns Recorded Goals Includes: Active GoalsNo Active Goals Recorded Interventions Includes: Interventions for active GoalsNo Interventions Recorded Evaluations & Outcomes Includes: Evaluations & Outcomes for active GoalsNo Outcomes Recorded
--- OUTSIDE RECORDS SUMMARY | 2021-05-19 06:29 | CCD ---
Author Author [facility] Organization [facility] Address [address] [place] [address] Phone Care Team Providers Care Drill Presser Name Role Phone Rebeca STATON, Gloria Woo Unavailable [phone] Jane STATON, Mayra Santoro PP [phone] Blayne STATON, Wang T Unavailable Unavailable Janay [...] RPA Active Obesity 01/07/2002 - 12:00AM Angle Menjivar RPA Active Psoriatic Arthropathy 01/07/2002 - 12:00AM Angle Salas ambo RPA Inactive Note: Enbrel in past; Humira started 2009 Psoriasis Arthropathic 01/07/2002 - 12:00AM Tyler Cancino MD Active Note: r/u [place] Diabetes Mellitus Type 2 - Uncomplicated, Uncontrolled 2 - 12:00AM Maria Teresa Elkins ANP-BC Inactive Note: started rx 2008 Plan of Treatment Future Appointments Date Time Location Provider followup 11/30/2020 8:15AM [facility], [facility] Mayra Lara MD Findings Encounter Date Education and counseling [...] all patient encounters Findings Encounter Date Acute esophagitis , initiated famotidine , having burning into chest which wakes him up occasionally followup with Mayra Lara MD 09/03/2020 Acute renal failure which is resolved s /p discontinuation of naproxen and metformin [Acute kidney failure, unspecified] followup with Mayra Lara MD 09/03/2020 Ankylosing lumbosacral spondylitis which is inadequately controlled Burning pain in legs worsening. 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 Follows with Dr. Gustafson in [place] [Arthropathic psoriasis, unspecified] followup with Mayra Lara MD 09/03/2020 Benign essential hypertension BP stable . Has discontinued drinking coffee altogether. On enalapril, hydralazine, and metoprolol [Essential (primary) hypertension] followup with Mayra Lara MD 09/03/2020 Depression which is stable Stable on se rtraline 100 mg daily, continues to stay as active as possible [Major depressive disorder, single episode, unspecified] followup with Mayra Lara MD 09/03/2020 Diabetes with diabetic nephropathy which is stable A1c trending up from 7.5 to 8.2 s/p discontinuation of metformin. Increase Lantus from 45 to 50 units HS. Continue Trulicity, Jardiance, Continue diabetic diet [Other specified diabetes mellitus with diabetic nephropathy] followup with Mayra Lara MD 09/03/2020 Hyperlipidemia Stable, continue simvastatin [Hyperlip idemia, unspecified] followup with Mayra Lara MD 09/03/2020 Lumbago with sciatica No improvement wi th [...] rash. Currently following with Dr. Gustafson in [place], requests referral to Dr. Bethea today as he is not happy with the care he is receiving in [place]. [Arthropathic psoriasis, unspecified] followup with Mayra Lara [...] pepto bismol [Diarrhea, unspecified] followup with Mayra aLra MD 04/02/2020 Hyperlipidemia which is stable Stable, [...] psoriasis rash. Follows with Dr. Gustafson in [place] [Arthropathic psoriasis, unspecified] followup with Mayra Lara [...] psoriasis rash. Follows with Dr. Gustafson in [place] [Arthropathic psoriasis, unspecified] followup with Mayra Lara [...] psoriasis rash. Follows with Dr. Gustafson in [place] [Arthropathic psoriasis, unspecified] followup with Mayra Lara [...] psoriasis rash. Follows with Dr. Gustafson in [place] [Arthropathic psoriasis, unspecified] followup with Mayra Lara [...] psoriasis rash. Follows with Dr. Gustafson in [place] [Arthropathic psoriasis, unspecified] followup with Mayra Lara [...] and psoriasis rash followup with Maria Teresa BRAGA 06/11/2018 Benign essential hypertension -Blood pr essure well controlled with enalapril, hydralazine, and metoprolol followup with Maria Teresa BRAGA 06/11/2018 Depression -Continue with sertraline 10 0 [...] of Lantus insulin followup with Maria Teresa Andino [facility] 06/11/2018 Hyperlipidemia -Lipids are excellent in 09/02, continu e simvastatin followup with [facility] 06/11/2018 Polyneuropathy Taking gabapentin 100 mg twice daily, will increase to 2 tabs at bedtime to see if legs are more comfortsble followup with [facility] 06/11/2018 Acute upper respiratory infection with some features of allergies. Start saline nasal spray at least twice daily, continue with claritin daily. Start ceftin 250mg 1 tab twice daily. Will obtain chest xray, currently being treated for pneumonia, he had some rhonchi remaining after cough sick visit with Maria Teresa M [facility] 04/25/2018 Arthropathic psoriasis Is receiving Hum shantel every 2 weeks- which has helped both with pain and psoriasis rash followup with [facility] 03/05/2018 Benign essential hypertension -Blood pr essure well controlled with enalapril, hydralazine, and metoprolol followup with [facility] 03/05/2018 Depression -Continue with sertraline 10 0 mg daily, reports has more difficulty with depression during the winter months and rainy dark days, continues to stay as active as possible followup with Maria Teresa Thu [facility] 03/05/2018 Diabetes with diabetic nephropathy - he moglobin A1c slightly improved to 9.0, patient is taking Trulicity, Lantus, metformin, and Prandin. AddedJardiance 10 mg 1 tablet daily to regimen 3 weeks ago, has not yet started this medication, taking 71 units of Lantus insulin followup with Maria Teresa M [facility] 03/05/2018 Hyperlipidemia -Lipids are excellent in 09/02, continu e simvastatin followup with [facility] 03/05/2018 Polyneuropathy Taking gabapentin 100 mg twice daily which has helped with discomfort followup with [facility] 03/05/2018 Constipation Patient recommended to use MiraLAX 1/2-1 capful daily, patient to titrate according to need. Recommend he try to avoid frequent use of laxatives sick visit with Maria Teresa Thu [facility] 02/12/2018 Peripheral neuropathy Related to diabet [...] his falls sick visit with Maria Teresa M [facility] 02/12/2018 Arthropathic psoriasis Is receiving Hum shantel every 2 weeks- which has helped both with pain and psoriasis rash followup with [facility] 12/06/2017 Benign essential hypertension -Blood pr essure well controlled with enalapril, hydralazine, and metoprolol followup with [facility] 12/06/2017 Depression -Continue with sertraline 10 0 mg daily, reports has more difficulty with depression during the winter months and rainy dark days, continues to stay as active as possible followup with [facility] 12/06/2017 Diabetes with diabetic nephropathy - he moglobin A1c has worsened to 9.4, patient is taking Trulicity, Lantus, metformin, and Prandin. Will add Jardiance 10 mg 1 tablet daily to regimen followup with [facility] 12/06/2017 Hyperlipidemia -Lipids are excellent in 09/02, continu e simvastatin followup with [facility] 12/06/2017 Polyneuropathy Taking gabapentin 100 mg twice daily which has helped with discomfort followup with [facility] 12/06/2017 Arthropathic psoriasis Is receiving Hum shantel every 2 weeks- which has helped both with pain and psoriasis rash followup with [facility] 08/24/2017 Benign essential hypertension -Blood pr essure well controlled with enalapril, hydralazine, and metoprolol followup with [facility] 08/24/2017 Depression -Continue with sertraline 10 0 mg daily, reports has a bit more difficulty with depression during the winter months, continues to stay as active as possible followup with [facility] 08/24/2017 Diabetes with diabetic nephropathy -Res tarted Prandin therapy, hemoglobin A1c improved from 9.5-8.6, patient is taking Trulicity, Lantus, metformin, and Prandin. Patient thinks he can improve hemoglobin A1c with diet and would like to try to do so followup with Maria Teresa Elkins [facility] 08/24/2017 Hyperlipidemia -Lipids are excellent, continue simvas tatin [facility] Polyneuropathy Taking gabapentin 100 mg twice daily which has helped with discomfort followup with Maria Teresa Andino [facility] 08/24/2017 Arthropathic psoriasis Is receiving Hum shantel every 2 weeks-rash essentially resolved with this medication, holds also with discomfort followup with Maria Teresa Andino [facility] 06/12/2017 Benign essential hypertension -Blood pr essure well controlled with enalapril, hydralazine, and metoprolol followup with Maria Teresa Andino [facility] 06/12/2017 Depression -Continue with sertraline 10 0 mg daily, reports has a bit more difficulty with depression during the winter months, feels he is handling it okay, states he will not allow himself to feel sorry about his health, continues to stay as active as possible followup with Maria Teresa M [facility] 06/12/2017 Diabetes with diabetic nephropathy Hemo globin A1c has worsened from 8.2 in 11/29 to 9.5, last microalbumin in 09/01 was 72. Spoke with pt who would rather restart Prandin 0.5 mg with meals as before and see if this will improve glucoses. Followup in 3 [facility] Hyperlipidemia Will recheck at next appointment, not fasting today followup with Maria Teresa Andino [facility] 06/12/2017 Polyneuropathy Taking gabapentin 100 mg twice daily which has helped with discomfort followup with Maria Teresa Andino [facility] 06/12/2017 No tobacco use never smoked Annual Wellness SUBSEQ UENT visi t(> 1yr [facility] Routine adult history and physical (18 - 64 yrs) An nual Wellness SUBSEQUENT visi t(> 1yr [facility] Arthropathic psoriasis Is receiving Hum shantel every 2 weeks-rash essentially resolved with this medication followup with Maria Teresa Elkins [facility] 12/12/2016 Benign essential hypertension -blood pr essure is elevated today, pt reports he forgot to take his medications this am followup with Maria Teresa Andino [facility] 12/12/2016 Depression -Continue with sertraline 10 0 mg daily, reports has a bit more difficulty with depression during the winter months, feels he is handling it okay, but constant rain has been very difficult followup with Maria Teresa Andino [facility] 12/12/2016 Polyneuropathy Taking gabapentin 100 mg once daily which has helped with discomfort, will increase to 100mg twice daily to decrease discomfort followup with Maria Teresa Andino [facility] 12/12/2016 Pure hypercholesterolemia -lipids stable in - fol lowup with Maria Teresa Andino [facility] 12/12/2016 Type 2 diabetes mellitus - uncomplicated , uncontrolled -Hemoglobin A1c has improved from 9.2 to 8.2 on Trulicity dose to 1.5 mg subcutaneously once weekly. Admits to some dietary indiscretions and will work on those, is generally more active in the summer, has not been because of the increased rain followup with Maria Teresa Andino [facility] 12/12/2016 Arthropathic psoriasis Is receiving Hum shantel every 2 weeks-he has improved with this medication followup with Maria Teresa Thu [facility] 08/31/2016 Benign essential hypertension Stable followup with Maria Teresa Thu [facility] 08/31/2016 Depression -Continue with sertraline 10 0 mg daily, reports has a bit more difficulty with depression during the winter months, feels she is handling it okay and looking forward to longer daylight hours followup with Maria Teresa Thu [facility] 08/31/2016 Polyneuropathy Taking gabapentin 100 mg once daily which has helped with discomfort followup with [facility] 08/31/2016 Psoriasis Has improved with Humira injections followu p with Maria Teresa Thu [facility] 08/31/2016 Pure hypercholesterolemia followup with Maria Teresa [facility] 08/31/2016 Type 2 diabetes mellitus - uncomplicated , uncontrolled -Hemoglobin A1c has improved from 9.6 to 9.2. Will increase Trulicity dose to 1.5 mg subcutaneously once weekly. Indicates he has been more inactive through the winter because of his balance and falling, will also try to make improvements in diet followup with Maria Teresa M [facility] 08/31/2016 Arthropathic psoriasis Is receiving Hu' ramona every 2 weeks-he has improved with this medication followup with Maria Teresa Elkins [facility] 06/01/2016 Benign essential hypertension followup with Maria Teresa Elkins [facility] 06/01/2016 Depression -Depression score was high a t 15, counseling services offered, he did not want to increase or change medication followup with Maria Teresa Elkins [facility] 06/01/2016 Palpitations Describes pounding pulse, discussed Holter monitor, patient would like to wait for now. He's not aware of skipped beats. Will check thyroid followup with Maria Teresa Elkins [facility] 06/01/2016 Polyneuropathy Patient has decrease kristi apentin 200 mg once daily, for intermittent jabbing generalized discomfort. He will increase gabapentin to 100 mg twice daily followup with Maria Teresa Elkins [facility] 06/01/2016 Pruritus Behind the left ear, uncertain of cause, skin is somewhat dry. He will apply skin moisturizer to see if this improves [facility] Pure hypercholesterolemia followup with Maria Teresa Elkins [facility] 06/01/2016 Type 2 diabetes mellitus - uncomplicated, uncontrolled -Hemoglobin A1c is 9.6 followup with Maria Teresa Elkins [facility] 06/01/2016 No tobacco use Annual Wellness SUBSEQUEN T visi t(> 1yr since prev. with Maria Teresa Elkins [facility] 06/01/2016 Routine adult history and physical (18 - 64 yrs) An nual Wellness SUBSEQUENT visi t(> [facility]yr [facility] Arthropathic psoriasis fair control. Seeing Rheumato logy followup with Tyler Samson MD 12/02/2015 Benign essential hypertension good control followup with [place] Samson MD 12/02/2015 Hypercholesterolemia followup with Tyler [...] seen new patient with Angle Huber Shambo [facility] 07/03/2014 Depression new patient with Angle Huber Shambo [facility] Hypercholesterolemia new patient with Angle Huber Shambo [facility] Obesity new patient with Angle Huber Shambo [facility] Type 2 diabetes mellitus - uncomplicated, uncontrolled new patient with Angle Huber Shambo [facility] 07/03/2014 Instructions Instructions not supported for [...] daily with Lantus pen. Dx:E13.9 FreeStyle Lancets [facility] 07/31/2014 Provider: Harshad Menjivar MD Diagnosis: DM,adult [...] Tablet 06/28/2018 - 05/30/2019 Provider: Maria Teresa Elkins ANP-BC Diagnosis: as directed 1.5 tabs PO BID Metoprolol Tartrate 50MG Oral Tablet 06/27/2018 - 06/11/2018 Provider: Maria Teresa Elkins ANP-BC Diagnosis: as directed 1.5 tabs PO BID Naproxen 500MG Oral Tablet 06/12/2018 - 03/11/2019 Provider: Maria Teresa Elkins ANP-BC Diagnosis: one BID prn pain, MDD 2 Gabapentin 100MG Oral Capsule 06/11/2018 - 08/28/2018 Provid er: Maria Teresa Elkins ANP-BC Diagnosis: 1 tab in am, 2 [...] q6h prn pain. MDD 4 Ref #: [id number] Oxycodone-Acetaminophen 5-325MG Oral Tablet 03/05/2018 - 11/2017 Provider: Maria Teresa Elkins ANP- Diagnosis: Low back pain 1 tab q6h prn pain. MDD 4 Ref #: [id number] Oxycodone-Acetaminophen 5-325MG Oral Tablet 02/12/2018 - Provider: Maria Teresa Elkins ANP- Diagnosis: Low back pain 1 tab q6h prn pain. MDD 4 Ref #: [id number] Cialis 5MG Oral Tablet 12/18/2017 - 06/11/2018 Provider: Maria Teresa Elkins ANP-BC Diagnosis: Take one tab daily Jardiance 10MG Oral Tablet 12/07/2017 - 06/11/2018 Provider: Maria Teresa Elkins ANP-BC Diagnosis: 1 PO QD Trulicity 1.5MG/0.5ML Subcutaneous Solution Pen-inject or 12/06/2017 - 03/05/2018 Provider: Maria Teresa Elkins ANP- Diagnosis: inject subcutaneously once weekly Lantus SoloStar 100UNIT/ML Subcutaneous Solution Pen-i njector 12/06/2017 - 12/02/2018 Provider: Maria Teresa Elkins ANP- Diagnosis: Type 2 diabetes paul itus with hyperglycemia as directed 71 units subq qd. Gabapentin 100MG Oral Capsule 12/05/2017 - 06/11/2018 Provid er: Maria Teresa Elkins ANP- Diagnosis: 1 tab twice daily Naproxen 500 MG OR TABS 09/10/2017 - 02/12/2018 Provider: Maria Teresa Elkins ANP- Diagnosis: one BID prn pain, MDD 2 Sertraline HCl 100MG Oral Tablet 08/24/2017 - 06/11/2018 Pro vider: [facility] Diagnosis: 1 PO QD Metoprolol Tartrate 50MG Oral Tablet 08/24/2017 - 06/11/2018 [facility]: as directed 1.5 tabs PO BID HydrALAZINE HCl 25MG Oral Tablet 08/24/2017 - 06/11/2018 Pro vider: [facility] Diagnosis: 1 PO BID MetFORMIN HCl 1000MG Oral Tablet 08/24/2017 - 06/11/2018 Pro vider: [facility] Diagnosis: Type 2 diabetes paul itus without [...] - 08/31/2016 Provi olga: Maria Teresa Elkins ANP-BC Diagnosis: [...] - 08/24/2017 Pro vider: Maria Teresa Elkins ANP-BC Diagnosis: as directed 1.5 tabs PO BID HydrALAZINE HCl 25 MG Tablet 08/31/2016 - 08/24/2017 Provide r: Maria Teresa Elkins ANP-BC Diagnosis: 1 PO BID MetFORMIN HCl 1000 MG Tablet 08/31/2016 - 08/24/2017 Provide r: Maria Teresa Elkins ANP-BC Diagnosis: Type 2 diabetes paul itus without complications 1 PO BID Gabapentin 100 MG Capsule 08/31/2016 - 12/12/2016 Provider: Maria Teresa Elknis ANP- Diagnosis: 1 PO QD Enalapril Maleate 20 MG Tablet 08/31/2016 - 08/24/2017 Provi olga: Maria Teresa M Severo ANP- Diagnosis: Essential (primary) hypertension 1 PO BID Naproxen 500 MG Tablet 08/31/2016 - 09/10/2017 Provider: Maria Teresa Elkins ANP- Diagnosis: one BID prn pain, MDD 2 Trulicity 0.75 MG/0.5ML Solution Pen-injector 06/13/2016 - 0 09/01/2016 Provider: Maria Teresa Elkins ANP- Diagnosis: Type 2 diabetes paul itus with hyperglycemia inject subcutaneously 0.75 mg once weekly, the same day of BD Pen Needle Mini U/F 31G X 5 MM Miscellaneous 05/17/2016 - 06/12/2017 Provider: Maria Teresa Elkins ANP- Diagnosis: Other specified diab etes mellitus without complications Use 1 needle daily with Lantus pen. Dx:E13.9 Naproxen 500 MG Tablet 04/06/2016 - 08/31/2016 Provider: Maria Teresa Elkins ANP- Diagnosis: one [...] q4-6h prn pain. MDD 8. Reference #: [id number] Simvastatin 10 MG Tablet 11/30/2014 - 12/02/2015 [...] Dx:250.02 BD Disp Needle 30G X 1" MISC 07/03/2014 - 04/16/2015 Provide r: Jair Diego MD Diagnosis: Lantus SoloStar 100 UNIT/ML SC SOPN 07/03/2014 - 10/07/2014 Provider: Diagnosis: 69 units SC daily NovoLOG FlexPen 100 UNIT/ML SC SOPN 07/03/2014 - 09/02/2014 Provider: Diagnosis: 5 units SC TID (prior to meals) BD Disp Needle 30G X 1" MIS 06/20/2014 - 07/03/2014 Provide r: Jair Diego [...] by Mayra Lara MD on 09/02/2020 [address] [place], [address] Collected: 09/02/2020 Reported: 09/02/2020 13:09 tel :[phone] ext. 1500 ACR 144.6 ug/mg (0-30) H (High) Note: Responsible Observer: KM Micro alb 127.0 mg/L (0-30) H (High) Note: Responsible Observer: KM Urine Creat 87.8 mg/dl (34-300) None Note: Responsible Observer: KM Reviewed by Mayra Lara MD on 09/03; All test results are final unless otherwise noted. [facility] Ordered by Mayra Lara MD on 09/02/2020 [address] [place], [address] Collected: 09/02/2020 Reported: 09/02/2020 13:09 tel :[phone] ext. 1500 Albumin 4.2 g/dl (3.4-5.0) None [...] by Mayra Lara MD on 09/02/[address] [place] [address], [id number] Collected: 09/02/2020 Reported: 09/02/2020 13:09 tel :[phone] ext. 1500 Cholesterol 168 mg/dl (135-200) None [...] by Mayra Lara MD on 09/02/[address] [place] [address], [id number] Collected: 09/02/2020 Reported: 09/02/2020 13:09 tel :[phone] ext. 1500 Hgba1c 10.3 na (5.0-6.0) H (High) Note: Responsible Observer: KM Reviewed by Mayra Lara MD on 09/03; All test results are final unless otherwise noted. PSA [facility] Ordered by Mayra Lara MD on 09/02/[address] [place] [address], [id number] Collected: 09/02/2020 Reported: 09/02/2020 13:09 tel :[phone] ext. 1500 PSA 1.02 I/L (0.0-4.0) None Note: Responsible Observer: KM Reviewed by Mayra Lara MD on 09/03; All test results are final unless otherwise noted. BMP [facility] Ordered by Mayra Lara MD on 05/31/2020 [address] [place], [address] Collected: 05/31/2020 Reported: 05/31/2020 14:29 tel :[phone] ext. 1500 Urea Nitrogen 21 mg/dl (6-20) [...] by Mayra Lara MD on 05/31/2020 [address] [place], [address] Collected: 05/31/2020 Reported: 05/31/2020 14:29 tel :[phone] ext. 1500 Hgba1c 8.2 na (5.0-6.0) H (High) Note: Responsible Observer: KM Reviewed by Mayra Lara MD on 06/01; All test results are final unless otherwise noted. BMP [facility] Ordered by Mayra Lara MD on 03/31/2020 [address] [place], [address] Collected: 03/31/2020 Reported: 03/31/2020 11:59 tel :[phone] ext. 1500 Urea Nitrogen 29 mg/dl (6-20) [...] test results are final unless otherwise noted. [facility] In-house [facility] Ordered by Mayra Lara MD on 02/26/2020 [address] [place], [address] Collected: 02/26/2020 Reported: 02/26/2020 13:15 tel :[phone] ext. 1500 Albumin 4.1 g/dl (3.4-5.0) None [...] by Mayra Lara MD on 02/26/[address] [place] [address], [id number] Collected: 02/26/2020 Reported: 02/26/2020 13:15 tel :[phone] ext. 1500 Hgba1c 7.5 na (5.0-6.0) H (High) Note: Responsible Observer: KM Reviewed by Mayra Lara MD on 02/26; All test results are final unless otherwise noted. [facility] Ordered by Mayra Lara MD on 11/27/[address] [place] [address], [id number] Collected: 11/27/2019 Reported: 11/27/2019 12:18 tel :[phone] ext. 1500 Albumin 4.3 g/dl (3.4-5.0) None [...] by Mayra Lara MD on 11/27/[address] [place] [address], [facility] Collected: 11/27/2019 Reported: 11/27/2019 12:18 tel : ext. 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, [facility] 09/02/2020 Creatinine: URINE 00075 Other specified diab etes mellitus with diabetic nephropathy, Hyperlipidemia, unspecified Mayra Lara MD [facility], [facility] 09/02/2020 Fasting Lipid Profile 24135 Other specified di abetes mellitus with diabetic nephropathy, Hyperlipidemia, unspecified Mayra Lara MD [facility] [facility], [facility] 09/02/2020 CMP-Complete Metabolic Profile 40672 Other spe cified diabetes mellitus with diabetic nephropathy, Hyperlipidemia, unspecified Mayra Lara MD [facility], [facility] 09/02/2020 HgbA1C 20926 Other specified diab etes mellitus with diabetic nephropathy, Hyperlipidemia, unspecified Mayra Lara MD [facility], [facility] 09/02/2020 Venipuncture (routine) 34619 Other specified d iabetes mellitus with diabetic nephropathy, Hyperlipidemia, unspecified Mayra Lara MD [facility], [facility] 09/02/2020 HgbA1C 51432 Other specified diabetes mellitu s with diabetic nephropathy Mayra Lara MD [facility], [facility] 05/31/2020 Venipuncture (routine) 12776 Other specified d iabetes mellitus with diabetic nephropathy Mayra Lara MD [facility], [facility] 020 BMP-Basic Metabolic Profile 72555 Other specif ied diabetes mellitus with diabetic nephropathy Mayra Lara MD [facility], [facility] 05/31/2020 Venipuncture (routine) 01510 Other specified d iabetes mellitus with diabetic nephropathy Mayra Lara MD [facility], [facility] 020 BMP-Basic Metabolic Profile 26164 Other specif ied diabetes mellitus with diabetic nephropathy Mayra Lara MD [facility] 03/31/2020 HgbA1C 41706 Other specified diabetes mellitu s with diabetic nephropathy Mayra Lara MD [facility] 02/26/2020 CMP-Complete Metabolic Profile 32263 Other spe cified diabetes mellitus with diabetic nephropathy Mayra Lara MD [facility] 02/26/2020 Venipuncture (routine) 35854 Other specified d iabetes mellitus with diabetic nephropathy Mayra Lara MD [facility] 020 CMP-Complete Metabolic Profile 62860 Other spe cified diabetes mellitus with diabetic nephropathy Mayra Lara MD [facility] 11/27/2019 HgbA1C 48142 Other specified diabetes mellitu s with diabetic nephropathy Mayra Lara MD [facility] 11/27/2019 Venipuncture (routine) 67653 Other specified d iabetes mellitus with diabetic nephropathy Mayra Lara MD [facility] 020 Surgical History Last Updated Prior [...] Diagnosed ALS in past year Father CAD, CT (56), had his first CT at age 40 06/02/2016 First child is a son JRA, had testicular cancer 06/02 First cousins Paternal first cousin on cancer, paternal first cousin testicular cancer, age 57, paternal cousin with breast cancer, 06/02/2016 Second child is a son Healthy 06/02/2016 Second sister in good health 06/02/2016 Sister in good health Diagnosed breast cancer at age 32 06/02/2016 Reports [facility] breast ca, depression, HTN 07/03/2014 Mother DM [...] injectable 1 06/03/2015 Left Arm Complete (Administered) [facility] Influenza, seasonal, injectable 2 06/01/2016 Left Deltoid Complete (Administered) [facility] Note: VIS Given Influenza, seasonal, injectable 3 06/12/2017 Right Deltoid Complete (Administered) [facility] PCV (Pneumovax 23) 1 07/06/2006 Complete (Reported ) Patient [id number] 1 06/12/2017 Left Deltoid Complete (Admini stered) [facility] Tdap (> 7 yrs) 1 02/26/2013 Complete (Reported) Pa tient Allergies Includes: Active, inactive, and resolved Allergies [...] t(> 1yr since prev. Ronni Lara MD [facility], [facility] 09/03/2020 7:48AM 9:00AM Routine History and Physical Senior Citizen (65-80 Yrs) ANNUAL PE-followup exam/30 Mayra Lara MD [facility], [facility] 09/03/2020 7:48AM 9:00AM followup Mayra Lara MD [facility], [facility] 09/03 7:48AM 9:00AM Acute Renal Failure, Polyneuropathy, Dep ression, Diabetes with Diabetic Nephropathy, Ankylosing Spondylitis of Lumbosacral Region, Male Erectile Dysfunction, Esophagitis Acute, Essential Hypertension Benign, Hyperlipidemia, Psoriasis Arthropathic, Lumbago with Sciatica followup Mayra Lara MD [facility], [facility] 06/01 7:51AM 8:12AM Acute Renal Failure, Polyneuropathy, Dep ression, Diabetes with Diabetic Nephropathy, Ankylosing Spondylitis of Lumbosacral Region, Psoriasis Arthropathic, Male Erectile Dysfunction followup Mayra Lara MD [facility], [facility] 04/02 7:46AM 8:15AM Esophagitis Acute, Acute Renal Failure, Polyneuropathy, Essential Hypertension Benign, Depression, Hyperlipidemia, Diabetes with Diabetic Nephropathy, Ankylosing Spondylitis of Lumbosacral Region, Psoriasis Arthropathic, Lumbago with Sciatica, Male Erectile Dysfunction, Diarrhea followup Mayra Lara MD [facility], [facility] 02/26 7:47AM 8:20AM Esophagitis Acute, Polyneuropathy, Essen tial Hypertension Benign, Depression, Hyperlipidemia, Diabetes with Diabetic Nephropathy, Psoriasis Arthropathic, Lumbago with Sciatica, Male Erectile Dysfunction, Ankylosing Spondylitis of Lumbosacral Region, Acute Renal Failure followup Mayra Lara MD [facility], [facility] 11/27 7:43AM 8:08AM Esophagitis Acute, Polyneuropathy, Essen tial Hypertension Benign, Depression, Hyperlipidemia, Diabetes with Diabetic Nephropathy, Psoriasis Arthropathic, Lumbago with Sciatica, Male Erectile Dysfunction Insurance Includes: Active Insurance Policies Plan Name Member ID Group # Subscriber Relationship Effective Da adam 1 - [facility]- [id number] Kameron Foster Self 07/16/2017 - Unknown Advance Directives Includes: Current Advance DirectivesNo Advance Directives Recorded Health Concerns Includes: Active Health ConcernsNo Active Health Concerns Recorded Goals Includes: Active GoalsNo Active Goals Recorded Interventions Includes: Interventions for active GoalsNo Interventions Recorded Evaluations & Outcomes Includes: Evaluations & Outcomes for active GoalsNo Outcomes Recorded
--- OUTSIDE RECORDS SUMMARY | 2021-05-19 06:29 | CCD | Continuity of Care Document ---
Author Author Kameron ZACARIAS A-C Organization Unknown Address [address], [address] [place] [address] Phone [phone] Care Team Providers Care Seam Stay Stitcher Name Role Phone Mayra Yanez M.D. AUTM [phone] Problems Description No Active Problems Social History Type Date Description Comments Sex Unknown ETOH Use Denies alcohol use Tobacco Use Start: Unknown Non Smoker Allergies, Adverse Reactions, Alerts Active Allergies Criticality Reaction | Severity Comments Date Methotrexate Unable to assess criticality 04/13/2021 Duramorph Unable to assess criticality 04/13/2021 Morphine Unable to assess criticality 04/13/2021 Medications Active Medications SIG Qnty Indications Ordering Provide r Date Humira Pen 40mg/0.8ML PNKT every 2 weeks Unknown Trulicity 1.5mg/0.5ML Solution Pen -Inject 1 inj sq every week Unknown Lantus 100Unit/ML Solution 71 units every day Unknown Sertraline HCL 100mg Tablets 1 by mouth every day Unknown Atorvastatin Calcium 40mg Tablets 1 by mouth every day Unknown Jardiance 25mg Tablets 1 by mouth every day Unknown Pantoprazole Sodium 40mg Tablets DR Daily Unknown Metoprolol Tartrate 50mg Tablets 1 1/2 tab bid Unknown Enalapril Maleate 20mg Tablets bid Unknown Gabapentin 300mg Capsules 1 tab by mouth three times a day Unknown Diclofenac Sodium 1% Gel Vahid y Unknown Humalog 100Unit/ML Solution P SS daily Unknown Hydralazine HCL 25mg Tablets bid Unknown Immunizations Description No Information Available Vital Signs Date Vital Result Comment 04/13/2021 9:54am BP Systolic 148 mmHg BP Diastolic 88 mmHg Height 70 inches 5'10" Weight 220.00 lb BMI (Body Mass Index) 31.6 kg/m2 [place] Body Weight 166 lb Weight 99.792 kg BSA (Body Surface Area) 2.17 m2 Results Description No Information Available Procedures Date Code Description Status 04/13/2021 16712 Office/Outpatient New Moderate M DM 45-59 Minutes Completed Medical Devices Description No Information Available Encounters Type Date Location Provider Dx Diagnosis Office Visit 04/13/2021 9:30a [facility] Shayy Zacarias RPA-C R13.10 Dysphagia, unspecified K21.9 Gastro-esophageal reflux dis ease without esophagitis Assessments Date Code Description Provider 04/13/2021 R13.10 Dysphagia, unspecified Shayy Zacarias RPA-C 04/13/2021 K21.9 Gastro-esophageal reflux disease without esophagitis Shayy Zacarias RPA-Ward Plan of Treatment 04/13/2021 - Shayy Zacarias RPA-C* R13.10 Dysphagia, unspecified * K21.9 Gastro-esophageal reflux disease without esophagitis * * New Xrays:* Barium Swallow, Esophagram, Scheduled: 05/03/21 * New Orders:* Endoscopy with possible dilation, Ordered: 04/13/21 * Comments:* Will arrange for upper endoscopy and possible dilation. Reviewed risks and benefits of the procedure, as well as other options, with the patient. Prep for this procedure was discussed with patient. Patient verbalized understanding of all of the above and is in agreement to proceed. Patient will seek medical attention for any acute changes. Will monitor. * Follow up:* As scheduled, sooner if needed. Functional Status Description No Information Available Mental Status Description No Information Available Referrals Refer to Reason for Referral Status Appt Date William Barros M.D. GERD Scheduled 04/13 [facility] [address], [address] [place] [address] [phone]
--- OUTSIDE RECORDS SUMMARY | 2021-05-19 06:29 | CCD ---
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 Depression 01/07/2002 - 12:00AM Angle [...] Date Time Location Provider followup 11/30/2020 8:15AM [facility], [facility] Mayra Lara MD Findings Encounter Date Education and counseling Age and gender specific counceling on preventative health discussed with the patient using USPTF and/or ACP guidlines on health maintenance and screening ANNUAL PE-followup exam/30 with Mayra Lara MD 09/03/2020 Education and [...] medical examination without abnormal findings] ANNUAL PE-followup exam/30 with Mayra Lara MD 09/03/2020 Acute esophagitis , initiated famotidine , having [...] psoriasis rash. Follows with Dr. Gustafson in [place] [Arthropathic psoriasis, unspecified] followup with Mayra Lara [...] rash. Currently following with Dr. Gustafson in [place], requests referral to Dr. Bethea today as he is not happy with the care he is receiving in [place]. [Arthropathic psoriasis, unspecified] followup with Mayra Lara MD 04/02/2020 Benign essential hypertension which is s table BP stable. On enalapril, hydralazine, and metoprolol [Essential (primary) hypertension] followup with Marya Lara MD 04/02/2020 Depression which is stable [...] psoriasis rash. Follows with Dr. Gustafson in [place] [Arthropathic psoriasis, unspecified] followup with Mayra Lara [...] psoriasis rash. Follows with Dr. Gustafson in [place] [Arthropathic psoriasis, unspecified] followup with Mayra Lara [...] psoriasis rash. Follows with Dr. Gustafson in [place] [Arthropathic psoriasis, unspecified] followup with Mayra Lara [...] psoriasis rash. Follows with Dr. Gustafson in [place] [Arthropathic psoriasis, unspecified] followup with Mayra Lara [...] psoriasis rash. Follows with Dr. Gustafson in [place] [Arthropathic psoriasis, unspecified] followup with Mayra Lara [...] psoriasis rash. Follows with Dr. Gustafson in [place] [Arthropathic psoriasis, unspecified] followup with Mayra Lara [...] psoriasis rash followup with Maria Teresa Elkins [facility] 06/11/2018 Benign essential hypertension -Blood pr essure well controlled with enalapril, hydralazine, and metoprolol followup with Maria Teresa M [facility] 06/11/2018 Depression -Continue with sertraline 10 0 mg daily, reports has more difficulty with depression during the winter months and rainy dark days, continues to stay as active as possible followup with Maria Teresa Thu [facility] 06/11/2018 Diabetes with diabetic nephropathy - he moglobin A1c slightly improved to 9.0, patient is taking Trulicity, Lantus, metformin, . Never started Jardiance 10 mg 1 tablet daily as recommended, taking 71 units of Lantus insulin followup with Maria Teresa Thu [facility] 06/11/2018 Hyperlipidemia -Lipids are excellent in 09/02, continu e simvastatin followup with [facility] 06/11/2018 Polyneuropathy Taking gabapentin 100 mg twice daily, will increase to 2 tabs at bedtime to see if legs are more comfortsble followup with [facility] 06/11/2018 Acute upper respiratory infection with some features of allergies. Start saline nasal spray at least twice daily, continue with claritin daily. Start ceftin 250mg 1 tab twice daily. Will obtain chest xray, currently being treated for pneumonia, he had some rhonchi remaining after cough sick visit with Maria Teresa Thu [facility] 04/25/2018 Arthropathic psoriasis Is receiving Hum shantel every 2 weeks- which has helped both with pain and psoriasis rash followup with [facility] 03/05/2018 Benign essential hypertension -Blood pr essure well controlled with enalapril, hydralazine, and metoprolol followup with [facility] 03/05/2018 Depression -Continue with sertraline 10 0 mg daily, reports has more difficulty with depression during the winter months and rainy dark days, continues to stay as active as possible followup with [facility] 03/05/2018 Diabetes with diabetic nephropathy - he moglobin A1c slightly improved to 9.0, patient is taking Trulicity, Lantus, metformin, and Prandin. AddedJardiance 10 mg 1 tablet daily to regimen 3 weeks ago, has not yet started this medication, taking 71 units of Lantus insulin followup with Maria Teresa M [facility] 03/05/2018 Hyperlipidemia -Lipids are excellent in 09/02, continu e simvastatin followup with Maria Teresa M [facility] 03/05/2018 Polyneuropathy Taking gabapentin 100 mg twice daily which has helped with discomfort followup with Maria Teresa [facility] 03/05/2018 Constipation Patient recommended to use MiraLAX 1/2-1 capful daily, patient to titrate according to need. Recommend he try to avoid frequent use of laxatives sick visit with Maria Teresa Andino [facility] 02/12/2018 Peripheral neuropathy Related [...] his falls sick visit with Maria Teresa Andino [facility] 02/12/2018 Arthropathic psoriasis Is receiving Hum shantel every 2 weeks- which has helped both with pain and psoriasis rash followup with Maria Teresa [facility] 12/06/2017 Benign essential hypertension -Blood pr essure well controlled with enalapril, hydralazine, and metoprolol followup with [facility] 12/06/2017 Depression -Continue with sertraline 10 [...] continu e simvastatin followup with Maria Teresa M [facility] 12/06/2017 Polyneuropathy Taking gabapentin 100 mg twice daily which has helped with discomfort followup with Maria Teresa [facility] 12/06/2017 Arthropathic psoriasis Is receiving Hum shantel every 2 weeks- which has helped both with pain and psoriasis rash followup with Maria Teresa And[facility] 08/24/2017 Benign essential hypertension -Blood pr essure well controlled with enalapril, hydralazine, and metoprolol followup with Maria Teresa Thu [facility] 08/24/2017 Depression -Continue with sertraline 10 0 [...] simvas tatin followup with Maria Teresa M [facility] 08/24/2017 Polyneuropathy Taking gabapentin 100 mg twice daily which has helped with discomfort followup with [facility] 08/24/2017 Arthropathic psoriasis Is receiving Hum shantel every 2 weeks-rash essentially resolved with this medication, holds also with discomfort followup with Maria Teresa [facility] 06/12/2017 Benign essential hypertension -Blood pr essure well controlled with enalapril, hydralazine, and metoprolol followup with [facility] 06/12/2017 Depression -Continue with sertraline 10 0 mg daily, reports has a bit more difficulty with depression during the winter months, feels he is handling it okay, states he will not allow himself to feel sorry about his health, continues to stay as active as possible followup with Maria Teresa [facility] 06/12/2017 Diabetes with diabetic nephropathy Hemo globin A1c has worsened from 8.2 in 11/29 to 9.5, last microalbumin in 09/01 was 72. Spoke with pt who would rather restart Prandin 0.5 mg with meals as before and see if this will improve glucoses. [facility] Hyperlipidemia Will recheck at next appointment, not fasting today followup with Maria Teresa [facility] 06/12/2017 Polyneuropathy Taking gabapentin 100 mg twice daily which has helped with discomfort followup with Maria Teresa [facility] 06/12/2017 No tobacco use never smoked Annual Wellness SUBSEQ UENT visi t(> 1yr since prev. with Maria Teresa Andino [facility] 06/12/2017 Routine adult history and physical (18 - 64 yrs) [facility] An nual Wellness SUBSEQUENT visi t(> 1yr since prev. with Maria Teresa Andino [facility] 06/12/2017 Arthropathic psoriasis Is receiving Hum shantel every 2 weeks-rash essentially resolved with this medication followup with Maria Teresa [facility] 12/12/2016 Benign essential hypertension [...] very difficult followup with Maria Teresa Andino [facility] 12/12/2016 Polyneuropathy Taking gabapentin 100 mg once daily which has helped with discomfort, will increase to 100mg twice daily to decrease discomfort followup with Maria Teresa [facility] 12/12/2016 Pure hypercholesterolemia -lipids stable in - fol lowup with Maria Teresa Andino [facility] 12/12/2016 Type 2 diabetes mellitus - uncomplicated , uncontrolled -Hemoglobin A1c has improved from 9.2 to 8.2 on Trulicity dose to 1.5 mg subcutaneously once weekly. Admits to some dietary indiscretions and will work on those, is generally more active in the summer, has not been because of the increased rain followup with Maria Teresa Andino [facility] 12/12/2016 Arthropathic psoriasis Is receiving Hum shantel every 2 weeks-he has improved with this medication followup with Maria Teresa [facility] 08/31/2016 Benign essential hypertension Stable followup with Maria Teresa [facility] 08/31/2016 Depression -Continue with sertraline 10 0 mg daily, reports has a bit more difficulty with depression during the winter months, feels she is handling it okay and looking forward to longer daylight hours followup with [facility] 08/31/2016 Polyneuropathy Taking gabapentin 100 mg once daily which has helped with discomfort followup with [facility] 08/31/2016 Psoriasis Has improved with Humira injections followu p with Maria Teresa [facility] 08/31/2016 Pure hypercholesterolemia followup with Maria Teresa Elkins [facility] 08/31/2016 Type 2 diabetes mellitus - uncomplicated , uncontrolled -Hemoglobin A1c has improved from 9.6 to 9.2. Will increase Trulicity dose to 1.5 mg subcutaneously once weekly. Indicates he has been more inactive through the winter because of his balance and falling, will also try to make improvements in diet followup with Maria Teresa Elkins [facility] 08/31/2016 Arthropathic psoriasis Is receiving Hu' ramona every 2 weeks-he has improved with this medication [facility] Benign essential hypertension followup with Maria Teresa Elkins [facility] 06/01/2016 Depression -Depression score was high a t 15, counseling services offered, he did not want to increase or change medication [facility] Palpitations Describes pounding pulse, discussed Holter monitor, patient would like to wait for now. He's not aware of skipped beats. Will check thyroid followup with Maria Teresa Elkins [facility] 06/01/2016 Polyneuropathy Patient has decrease kristi apentin 200 mg once daily, for intermittent jabbing generalized discomfort. He will increase gabapentin to 100 mg twice daily followup with Maria Teresa [facility] 06/01/2016 Pruritus Behind the left ear, uncertain of cause, skin is somewhat dry. He will apply skin moisturizer to see if this improves [facility] Pure hypercholesterolemia [facility] Type 2 diabetes mellitus - uncomplicated, uncontrolled -Hemoglobin A1c is 9.6 followup with Maria Teresa Elkins [facility] 06/01/2016 No tobacco use Annual Wellness SUBSEQUEN T visi t(> 1yr since prev. with Maria Teresa Andino [facility] 06/01/2016 Routine adult history and physical (18 - 64 yrs) An nual Wellness SUBSEQUENT visi t(> 1yr [facility] Arthropathic psoriasis fair control. Seeing Rheumato [...] Hypercholesterolemia followup with Tyler Samson MD 03/11/20 Type 2 diabetes mellitus - uncomplicated, uncontrolled [...] daily with Lantus pen. Dx:E13.9 FreeStyle Lancets [facility] 07/31/2014 Provider: Harshad Menjivar MD Diagnosis: DM,adult [...] 06/11/2018 - 09/03/2020 Provider: Maria Teresa Elkins [facility] Diagnosis: Take one tab daily Enalapril Maleate 20MG Oral Tablet 06/11/2018 - 05/30/2019 P rovider: Maria Teresa Elkins [facility] Diagnosis: Essential (primary) hypertension 1 PO BID FreeStyle Lite Test In Vitro Strip 05/23/2018 - 05/30/2019 P galder: Maria Teresa Elkins [facility] Diagnosis: as directed Test Daily and PRN Dx:E11.65 Accu-Chek FastClix Lancets Miscellaneous 05/23/2018 - 2018 Provider: Maria Teresa Elkins [facility] Diagnosis: use as directed. Test QD and PRN E11.65 Cefuroxime Axetil 250MG Oral Tablet 04/25/2018 - 06/11/2018 Provider: Maria Teresa Elkins [facility] Diagnosis: Take 1 tab every 12 hours with food Naproxen 500MG Oral Tablet 03/22/2018 - 03/05/2018 Provider: Maria Teresa Elkins [facility] Diagnosis: one BID prn pain, MDD 2 BD Pen Needle Mini U/F 31G X 5 MM Miscellaneous 03/05/2018 - 02/28/2019 Provider: Maria Teresa Elkins [facility] Diagnosis: Other specified diab etes mellitus without complications Use 1 needle daily with Lantus pen. Dx:E13.9 Trulicity 1.5MG/0.5ML Subcutaneous Solution Pen-inject or 03/05/2018 - 12/02/2018 Provider: Maria Teresa Elkins [facility] Diagnosis: inject subcutaneously once weekly Oxycodone-Acetaminophen 5-325MG Oral Tablet 03/05/2018 - Provider: Maria Teresa Elkins [facility] Diagnosis: Low back pain 1 tab q6h prn pain. MDD 4 Ref #: [id number] Oxycodone-Acetaminophen 5-325MG Oral Tablet 03/05/2018 - 11/2017 Provider: Maria Teresa Elkins [facility]- Diagnosis: Low back pain 1 tab q6h prn pain. MDD 4 Ref #: [id number] Oxycodone-Acetaminophen 5-325MG Oral Tablet 02/12/2018 - Provider: Maria Teresa Elkins [facility] Diagnosis: Low back pain 1 tab q6h prn pain. MDD 4 Ref #: [id number] Cialis 5MG Oral Tablet 12/18/2017 - 06/11/2018 Provider: Maria Teresa Elkins [facility]- Diagnosis: Take one tab daily Jardiance 10MG Oral Tablet 12/07/2017 - 06/11/2018 Provider: Maria Teresa Elkins [facility]- Diagnosis: 1 PO QD Trulicity 1.5MG/0.5ML Subcutaneous Solution Pen-inject or 12/06/2017 - 03/05/2018 Provider: Maria Teresa Elkins [facility] Diagnosis: inject subcutaneously once weekly Lantus [...] - 06/11/2018 Pro vider: Maria Teresa Elkins [facility] Diagnosis: 1 PO QD Metoprolol Tartrate 50MG Oral Tablet 08/24/2017 - 06/11/2018 Provider: Maria Teresa Elkins [facility]- Diagnosis: as directed 1.5 tabs PO BID HydrALAZINE HCl 25MG Oral Tablet 08/24/2017 - 06/11/2018 Pro vider: Maria Teresa Elkins [facility] Diagnosis: 1 PO BID MetFORMIN HCl 1000MG Oral Tablet 08/24/2017 - 06/11/2018 Pro vider: Maria Teresa Elkins [facility] Diagnosis: Type 2 diabetes paul itus [...] - 08/24/2017 Pro vider: Maria Teresa Elkins [facility] Diagnosis: as directed 1.5 tabs PO BID HydrALAZINE HCl 25 MG Tablet 08/31/2016 - 08/24/2017 Provide r: Maria Teresa Elkins [facility] Diagnosis: 1 PO BID MetFORMIN HCl 1000 MG Tablet 08/31/2016 - 08/24/2017 Provide r: Maria Teresa Elkins [facility] Diagnosis: Type 2 diabetes paul itus without complications 1 PO BID Gabapentin 100 MG Capsule 08/31/2016 - 12/12/2016 Provider: Maria Teresa Elkins [facility] Diagnosis: 1 PO QD Enalapril Maleate 20 MG Tablet 08/31/2016 - 08/24/2017 Provi olga: Maria Teresa Elkins [facility] Diagnosis: Essential (primary) hypertension 1 PO BID Naproxen 500 MG Tablet 08/31/2016 - 09/10/2017 Provider: Maria Teresa Elkins [facility] Diagnosis: one BID prn pain, MDD 2 Trulicity 0.75 MG/0.5ML Solution Pen-injector 06/13/2016 - 0 09/01/2016 Provider: Maria Teresa Elkins [facility] Diagnosis: Type 2 diabetes paul itus with hyperglycemia inject subcutaneously 0.75 mg once weekly, the same day of BD Pen Needle Mini U/F 31G X 5 MM Miscellaneous 05/17/2016 - 06/12/2017 Provider: Maria Teresa Elkins [facility]- Diagnosis: Other specified diab etes mellitus without complications Use 1 needle daily with Lantus pen. Dx:E13.9 Naproxen 500 MG Tablet 04/06/2016 - 08/31/2016 Provider: Maria Teresa Elkins [facility] Diagnosis: one BID prn pain, MDD [...] q4-6h prn pain. MDD 8. Reference #: [id number] Simvastatin 10 MG Tablet 11/30/2014 - 12/02/2015 [...] Dx:250.02 BD Disp Needle 30G X 1" [facility] 07/03/2014 - 04/16/2015 Provide r: Jair Diego MD Diagnosis: Lantus SoloStar 100 UNIT/ML SC SOPN 07/03/2014 - 10/07/2014 Provider: Diagnosis: 69 units SC daily NovoLOG FlexPen 100 UNIT/ML SC SOPN 07/03/2014 - 09/02/2014 Provider: Diagnosis: 5 units SC TID (prior to meals) BD Disp Needle 30G X 1" [facility] 06/20/2014 - 07/03/2014 Provide r: Jair [...] Ordered by Mayra Lara MD on 09/02/[address] [place] [address], [id number] Collected: 09/02/2020 Reported: 09/02/2020 13:09 tel :[phone] ext. 1500 ACR 144.6 ug/mg (0-30) H (High) Note: Responsible Observer: KM Micro alb 127.0 mg/L (0-30) H (High) Note: Responsible Observer: KM Urine Creat 87.8 mg/dl (34-300) None Note: Responsible Observer: KM Reviewed by Mayra Lara MD on 09/03; All test results are final unless otherwise noted. CMP [facility] Ordered by Mayra Lara MD on 09/02/[address] [place] [address], [id number] Collected: 09/02/2020 Reported: 09/02/2020 13:09 tel :[phone] ext. 1500 Albumin 4.2 g/dl (3.4-5.0) None [...] Ordered by Mayra Lara MD on 09/02/[address] [place] [address], [address] Collected: 09/02/2020 Reported: 09/02/2020 13:09 tel :[phone] ext. 1500 Cholesterol 168 mg/dl (135-200) None [...] by Mayra Lara MD on 09/02/2020 [address] [place], [address] Collected: 09/02/2020 Reported: 09/02/2020 13:09 tel :[phone] ext. 1500 Hgba1c 10.3 na (5.0-6.0) H (High) Note: Responsible Observer: KM Reviewed by Mayra Lara MD on 09/03; All test results are final unless otherwise noted. PSA [facility] Ordered by Mayra Lara MD on 09/02/2020 [address] [place], [address] Collected: 09/02/2020 Reported: 09/02/2020 13:09 tel :[phone] ext. 1500 PSA 1.02 I/L (0.0-4.0) None Note: Responsible Observer: KM Reviewed by Mayra Lara MD on 09/03; All test results are final unless otherwise noted. BMP [facility] Ordered by Mayra Lara MD on 05/31/[address] [place] [address], [address] Collected: 05/31/2020 Reported: 05/31/2020 14:29 tel :[phone] ext. 1500 Urea Nitrogen 21 mg/dl (6-20) [...] None Note: Responsible Observer: KM Reviewed by Mayar Lara MD on 06/01; All test results are final unless otherwise noted. Hgba1c [facility] Ordered by Mayra Lara MD on 05/31/[address] [place] [address], [address] Collected: 05/31/2020 Reported: 05/31/2020 14:29 tel :[phone] ext. 1500 Hgba1c 8.2 na (5.0-6.0) H (High) Note: Responsible Observer: KM Reviewed by Mayra Lara MD on 06/01; All test results are final unless otherwise noted. [facility] In[facility]house [facility] Ordered by Mayra Lara MD on 03/31/2020 [address] [place], [address] Collected: 03/31/2020 Reported: 03/31/2020 11:59 tel :[phone] ext. 1500 Urea Nitrogen 29 mg/dl (6-20) [...] test results are final unless otherwise noted. [facility]'s In-house [facility] Ordered by Mayra Lara MD on 02/26/2020 [address] [place], [address] Collected: 02/26/2020 Reported: 02/26/2020 13:15 tel :[phone] ext. 1500 Albumin 4.1 g/dl (3.4-5.0) None [...] Ordered by Mayra Lara MD on 02/26/[address] [place] [address], [address] Collected: 02/26/2020 Reported: 02/26/2020 13:15 tel :[phone] ext. 1500 Hgba1c 7.5 na (5.0-6.0) H (High) Note: Responsible Observer: KM Reviewed by Mayra Lara MD on 02/26; All test results are final unless otherwise noted. CMP [facility] Ordered by Mayra Lara MD on 11/27/[address] [place] [address], [address] Collected: 11/27/2019 Reported: 11/27/2019 12:18 tel :[phone] ext. 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) 06/15 Alcohol use [...] malignant neoplasm of prostate Mayra Lara MD [facility], [facility] 09/02/2020 Mircro Alb urine 43806 Other specified diab etes mellitus with diabetic nephropathy, Hyperlipidemia, unspecified Mayra Lara MD [facility], [facility] 09/02/2020 Creatinine: URINE 56052 Other specified diab etes mellitus with diabetic nephropathy, Hyperlipidemia, unspecified Mayra Lara MD [facility], [facility] 09/02/2020 Fasting Lipid Profile 53120 Other specified di abetes mellitus with diabetic nephropathy, Hyperlipidemia, unspecified Mayra Lara MD [facility], [facility] 09/02/2020 CMP-Complete Metabolic Profile 27588 Other spe cified diabetes mellitus with diabetic nephropathy, Hyperlipidemia, unspecified Mayra Lara MD [facility], [facility] 09/02/2020 HgbA1C 94069 Other specified diab etes mellitus with diabetic nephropathy, Hyperlipidemia, unspecified Mayra Lara MD [facility], [facility] 09/02/2020 Venipuncture (routine) 18534 Other specified d iabetes mellitus with diabetic nephropathy, Hyperlipidemia, unspecified Mayra Lara MD [facility], [facility] 09/02/2020 HgbA1C 52993 Other specified diabetes mellitu s with diabetic nephropathy Mayra Lara MD [facility], [facility] 05/31/2020 Venipuncture (routine) 10412 Other specified d iabetes mellitus with diabetic nephropathy Mayra Lara MD [facility], [facility] 020 BMP-Basic Metabolic Profile 56708 Other specif ied diabetes mellitus with diabetic nephropathy Mayra Lara MD [facility], P 05/31/2020 Venipuncture (routine) 07438 Other specified d iabetes mellitus with diabetic nephropathy Mayra Lara MD [facility], P 020 BMP-Basic Metabolic Profile 38354 Other specif ied diabetes mellitus with diabetic nephropathy Mayra Lara MD [facility], [facility] 03/31/2020 HgbA1C 43228 Other specified diabetes mellitu s with diabetic nephropathy Mayra Lara MD [facility], P 02/26/2020 CMP-Complete Metabolic Profile 77372 Other spe cified diabetes mellitus with diabetic nephropathy Mayra Lara MD [facility], [facility] 02/26/2020 Venipuncture (routine) 97152 Other specified d iabetes mellitus with diabetic nephropathy Mayra Lara MD [facility], P 020 CMP-Complete Metabolic Profile 94548 Other spe cified diabetes mellitus with diabetic nephropathy Mayra Lara MD [facility], P 11/27/2019 HgbA1C 08355 Other specified diabetes mellitu s with diabetic nephropathy Mayra Lara MD [facility], P 11/27/2019 Venipuncture (routine) 22452 Other specified d iabetes mellitus with diabetic nephropathy Mayra Lara MD [facility], P 020 Surgical History Last Updated [...] Diagnosed ALS in past year Father CAD, [place] (57), had his first [place] at age 40 06/02/2016 First child is a son JRA, had testicular cancer 06/02 First cousins Paternal first cousin on cancer, paternal first cousin testicular cancer, age 57, paternal cousin with breast cancer, 06/02/2016 Second child is a son Healthy 06/02/2016 Second sister in good health 06/02/2016 Sister in good health Diagnosed breast cancer at age 32 06/02/2016 Reports [facility] breast ca, depression, HTN 07/03/2014 Mother [...] injectable 1 06/03/2015 Left Arm Complete (Administered) [facility] Influenza, seasonal, injectable 2 06/01/2016 Left Deltoid Complete (Administered) [facility] Note: VIS Given Influenza, seasonal, injectable 3 06/12/2017 Right Deltoid Complete (Administered) [facility] PCV (Pneumovax 23) 1 07/06/2006 Complete (Reported ) Patient [id number] 1 06/12/2017 Left Deltoid Complete (Admini stered) [facility] Tdap (> 7 yrs) 1 02/26/2013 [...] t(> 1yr since prev. Ronni Lara MD [facility], [facility] 09/03/2020 7:48AM 9:00AM Routine History and Physical Senior Citizen (65-80 Yrs) ANNUAL PE-followup exam/30 Mayra Lara MD [facility], [facility] 09/03/2020 7:48AM 9:00AM Routine History and Physical Senior Citizen (65-80 Yrs) followup Mayra Lara MD [facility], [facility] 09/03 7:48AM 9:00AM Acute Renal Failure, Polyneuropathy, Dep ression, Diabetes with Diabetic Nephropathy, Ankylosing Spondylitis of [place]umbos[place]ral Region, Male Erectile Dysfunction, Esophagitis Acute, Essential Hypertension Benign, Hyperlipidemia, Psoriasis Arthropathic, Lumbago with Sciatica followup Mayra Lara MD [facility], [facility] 06/01 7:51AM 8:12AM Acute Renal Failure, Polyneuropathy, Dep ression, Diabetes with Diabetic Nephropathy, Ankylosing Spondylitis of [place] Region, Psoriasis Arthropathic, Male Erectile Dysfunction followup Mayra Lara MD [facility], [facility] 04/02 7:46AM 8:15AM Esophagitis Acute, Acute Renal Failure, Polyneuropathy, Essential Hypertension Benign, Depression, Hyperlipidemia, Diabetes with Diabetic Nephropathy, Ankylosing Spondylitis of [place] Region, Psoriasis Arthropathic, Lumbago with Sciatica, Male Erectile Dysfunction, Diarrhea followup Mayra Lara MD [facility], [facility] 02/26 7:47AM 8:20AM Esophagitis Acute, Polyneuropathy, Essen tial Hypertension Benign, Depression, Hyperlipidemia, Diabetes with Diabetic Nephropathy, Psoriasis Arthropathic, Lumbago with Sciatica, Male Erectile Dysfunction, Ankylosing Spondylitis of [place]umbos[place]ral Region, Acute Renal Failure followup Mayra Lara MD [facility], [facility] 11/27 7:43AM 8:08AM Esophagitis Acute, Polyneuropathy, Essen tial Hypertension Benign, Depression, Hyperlipidemia, Diabetes with Diabetic Nephropathy, Psoriasis Arthropathic, Lumbago with Sciatica, Male Erectile Dysfunction Insurance Includes: Active Insurance Policies Plan Name Member ID Group # Subscriber Relationship Effective Da adam 1 - [facility]- [id number] Kameron Foster Self 07/16/2017 - Unknown Advance Directives Includes: Current Advance DirectivesNo Advance Directives Recorded Health Concerns Includes: Active Health ConcernsNo Active Health Concerns Recorded Goals Includes: Active GoalsNo Active Goals Recorded Interventions Includes: Interventions for active GoalsNo Interventions Recorded Evaluations & Outcomes Includes: Evaluations & Outcomes for active GoalsNo Outcomes Recorded
--- OUTSIDE RECORDS SUMMARY | 2021-05-19 06:30 | CCD | Continuity of Care Document ---
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 AUTM [phone] Problems Description No Active Problems Social History [...] lb BMI (Body Mass Index) 31.6 kg/m2 [place] Body Weight 166 lb Weight 99.792 kg BSA (Body Surface Area) 2.17 m2 Results Description No Information Available Procedures Description No Information Available Medical Devices Description No Information Available Encounters Description No Information Available Assessments Date Code Description Provider 04/13/2021 R13.10 Dysphagia, unspecified JESSICA Mcleod 04/13/2021 K21.9 Gastro-esophageal reflux disease without esophagitis JESSICA Mcleod Plan of Treatment 04/13/2021 - JESSICA Mcleod* R13.10 Dysphagia, unspecified * K21.9 Gastro-esophageal reflux disease without esophagitis * * New Xrays:* Barium Swallow, Esophagram, Ordered: 04/13/21 * New Orders:* Endoscopy with possible dilation, [...] Date William Barros M.D. GERD Scheduled 04/13 [facility] [address], [address] [place] [address] [phone]
--- OUTSIDE RECORDS SUMMARY | 2021-05-19 06:30 | CCD ---
Author Author [facility] Organization [facility] Address Unknown Phone Unavailable Care Team Providers Care Parcel Post Delivery Name Role Phone Napoleon Ba MD Unavailable Unavailable Napoleon Ba MD Unavailable Unavailable Napoleon Ba MD Unavailable Unavailable Napoleon Ba MD Unavailable Unavailable Napoleon Ba MD Unavailable Unavailable Napoleon Ba MD Unavailable Unavailable Napoleon Ba MD Unavailable Unavailable Napoleon Ba MD Unavailable Unavailable Napoleon Ba MD Unavailable Unavailable Napoleon Ba MD Unavailable Unavailable Napoleon Ba MD Unavailable Unavailable Napoleon Ba MD Unavailable Unavailable Napoleon Ba MD Unavailable Unavailable Napoleon Ba MD Unavailable Unavailable Napoleon Ba MD Unavailable Unavailable Napoleon Ba MD Unavailable Unavailable Napoleon Ba MD Unavailable Unavailable Napoleon Ba MD Unavailable Unavailable Napoleon Ba MD Unavailable Unavailable Napoleon Ba MD Unavailable Unavailable Napoleon Ba MD Unavailable Unavailable Napoleon Ba MD Unavailable Unavailable Napoleon Ba MD Unavailable Unavailable Napoleon Ba MD Unavailable Unavailable Napoleon Ba MD Unavailable Unavailable Napoleon Ba MD Unavailable Unavailable Napoleon Ba MD Unavailable Unavailable Napoleon Ba MD Unavailable Unavailable Napoleon Ba MD Unavailable Unavailable Napoleon Ba MD Unavailable Unavailable LyndaNapoleon darden MD Unavailable Unavailable LyndaNapoleon darden MD Unavailable Unavailable LyndaNapoleon darden MD Unavailable Unavailable LyndaNapoleon darden MD Unavailable Unavailable LyndaNapoleon darden MD Unavailable Unavailable LyndaNapoleon darden MD Unavailable Unavailable LyndaNapoleon darden MD Unavailable Unavailable LyndaNapoleon darden MD Unavailable Unavailable LyndaNapoleon darden MD Unavailable Unavailable LyndaNapoleon darden MD Unavailable Unavailable LyndaNapoleon darden MD Unavailable Unavailable LyndaNapoleon darden MD Unavailable Unavailable LyndaNapoleon darden MD Unavailable Unavailable LyndaNapoleon darden MD Unavailable Unavailable LyndaNapoleon darden MD Unavailable Unavailable LyndaNapoleon darden MD Unavailable Unavailable LyndaNapoleon darden MD Unavailable Unavailable LyndaNapoleon darden MD Unavailable Unavailable LyndaNapoleon darden MD Unavailable Unavailable LyndaNapoleon darden MD Unavailable Unavailable LyndaNapoleon darden MD Unavailable Unavailable LyndaNapoleon darden MD Unavailable Unavailable LyndaNapoleon darden MD Unavailable Unavailable LyndaNapoleon darden MD Unavailable Unavailable LyndaNapoleon darden MD Unavailable Unavailable LynNapoleon grande MD Unavailable Unavailable LyndaNapoleon darden MD Unavailable Unavailable LynNapoleon grande MD Unavailable Unavailable LyndaNapoleon darden MD Unavailable Unavailable LyndaNapoleon darden MD Unavailable Unavailable LyndaNapoleon darden MD Unavailable Unavailable LynNapoleon grande MD Unavailable Unavailable LynNapoloen grande MD Unavailable Unavailable LynNapoleon grande MD Unavailable Unavailable LynNapoleon grande MD Unavailable Unavailable LynNapoleon grande MD Unavailable Unavailable LyndaNapoleon darden MD Unavailable Unavailable LynNapoleon grande MD Unavailable Unavailable LynNapoleon grande MD Unavailable Unavailable LynNapoleon grande MD Unavailable Unavailable LynNapoleon grande MD Unavailable Unavailable LyndaNapoleon darden MD Unavailable Unavailable LyndaNapoleon darden MD Unavailable Unavailable LyndaNapoleon darden MD Unavailable Unavailable LyndaNapoleon darden MD Unavailable Unavailable LynNapoleon grande MD Unavailable Unavailable LyndaNapoleon darden MD Unavailable Unavailable LynNapoleon grande MD Unavailable Unavailable LyndaNapoleon darden MD Unavailable Unavailable LyndaNapoleon darden MD Unavailable Unavailable LyndaNapoleon darden MD Unavailable Unavailable Lyndaker, Napoleon Long MD Unavailable Unavailable Lyndaker, Napoleon Long MD Unavailable Unavailable Lyndaker, Napoleon Long MD Unavailable Unavailable Lyndaker, Napoleon Long MD Unavailable Unavailable Lyndaker, Napoleon Long MD Unavailable Unavailable Lyndaker, Napoleon Long MD Unavailable Unavailable Lyndaker, Napoleon Long MD Unavailable Unavailable Lyndaker, Napoleon Long MD Unavailable Unavailable Lyndaker, Napoleon Long MD Unavailable Unavailable Lyndaker, Napoleon Long MD Unavailable Unavailable Lyndaker, Napoleon Long MD Unavailable Unavailable Lyndaker, Napoleon Long MD Unavailable Unavailable Lyndaker, Napoleon Long MD Unavailable Unavailable Lyndaker, Napoleon Long MD Unavailable Unavailable Lyndaker, Napoleon Long MD Unavailable Unavailable Lyndaker, Napoleon Long MD Unavailable Unavailable Lyndaker, Napoleon Long MD Unavailable Unavailable Charlebois, A Shayy RPA C Unavailable Unavailable Charlebois, A Shayy RPA C Unavailable Unavailable Charlebois, A Shayy RPA C Unavailable Unavailable Charlebois, A Shayy RPA C Unavailable Unavailable Charlebois, A Shayy RPA C Unavailable Unavailable Charlebois, A Shayy RPA C Unavailable Unavailable Charlebois, A Shayy RPA C Unavailable Unavailable Charlebois, A Shayy RPA C Unavailable Unavailable Charlebois, A Shayy RPA C Unavailable Unavailable Charlebois, A Shayy RPA C Unavailable Unavailable Charlebois, A Shayy RPA C Unavailable Unavailable Charlebois, A Shayy RPA C Unavailable Unavailable Charlebois, A Shayy RPA C Unavailable Unavailable Charlebois, A Shayy RPA C Unavailable Unavailable Charlebois, A Shayy RPA C Unavailable Unavailable Charlebois, A Shayy RPA C Unavailable Unavailable Charlebois, A Shayy RPA C Unavailable Unavailable Charlebois, A Shayy RPA C Unavailable Unavailable Charlebois, A Shayy RPA C Unavailable Unavailable Charlebois, A Shayy RPA C Unavailable Unavailable Charlebois, A Shayy RPA C Unavailable Unavailable Charlebois, A Shayy RPA C Unavailable Unavailable Charlebois, A Shayy RPA C Unavailable Unavailable Charlebois, A Sahyy RPA C Unavailable Unavailable Charlebois, A Shayy RPA C Unavailable Unavailable Charlebois, A Shayy RPA C Unavailable Unavailable Charlebois, A Shayy RPA C Unavailable Unavailable Charlebois, A Shayy RPA C Unavailable Unavailable Charlebois, A Shayy RPA C Unavailable Unavailable Charlebois, A Shayy RPA C Unavailable Unavailable Charlebois, A Shayy RPA C Unavailable Unavailable Charlebois, A Shayy RPA C Unavailable Unavailable Charlebois, A Shayy RPA C Unavailable Unavailable HIGBY, K WADE PA Unavailable Unavailable HIGBY, K WADE PA Unavailable Unavailable HIGBY, K WADE PA Unavailable Unavailable HIGBY, K WADE PA Unavailable Unavailable HIGBY, K WADE PA Unavailable Unavailable HIGBY, K WADE PA Unavailable Unavailable HIGBY, K WADE PA Unavailable Unavailable HIGBY, K WADE PA Unavailable Unavailable HIGBY, K WADE PA Unavailable Unavailable HIGBY, K WADE PA Unavailable Unavailable HIGBY, K WADE PA Unavailable Unavailable HIGBY, K WADE PA Unavailable Unavailable HIGBY, K WADE PA Unavailable Unavailable HIGBY, K WADE PA Unavailable Unavailable HIGBY K WADE PA Unavailable Unavailable HIGBY, K WADE PA Unavailable Unavailable HIGBY, K WADE PA Unavailable Unavailable HIGBY, K WADE PA Unavailable Unavailable HIGBY, K WADE PA Unavailable Unavailable HIGBY, K WADE PA Unavailable Unavailable HIGBY, K WADE PA Unavailable Unavailable HIGBY, K WADE PA Unavailable Unavailable HIGBY, K WADE PA Unavailable Unavailable HIGBY, K WADE PA Unavailable Unavailable HIGBY K WADE PA Unavailable Unavailable HIGBY, K WADE PA Unavailable Unavailable HIGBY, K WADE PA Unavailable Unavailable KATHY JIN MD Unavailable Unavailable KATHY JIN MD Unavailable Unavailable KATHY JIN MD Unavailable Unavailable KATHY JIN MD Unavailable Unavailable KATHY JIN MD Unavailable Unavailable KATHY JIN MD Unavailable Unavailable KATHY JIN MD Unavailable Unavailable KATHY JIN MD Unavailable Unavailable KATHY JIN MD Unavailable Unavailable KATHY JIN MD Unavailable Unavailable KATHY JIN MD Unavailable Unavailable KATHY JIN MD Unavailable Unavailable KATHY JIN MD Unavailable Unavailable KATHY JIN MD Unavailable Unavailable KATHY JIN MD Unavailable Unavailable KATHY JIN MD Unavailable Unavailable KATHY JIN MD Unavailable Unavailable KATHY JIN MD Unavailable Unavailable KATHY JIN MD Unavailable Unavailable KATHY JIN MD Unavailable Unavailable KATHY JIN MD Unavailable Unavailable KATHY JIN MD Unavailable Unavailable KATHY JIN MD Unavailable Unavailable KATHY JIN MD Unavailable Unavailable KATHY JIN MD Unavailable Unavailable KATHY JIN MD Unavailable Unavailable KATHY JIN MD Unavailable Unavailable KATHY JIN MD Unavailable Unavailable KATHY JIN MD Unavailable Unavailable KATHY JIN MD Unavailable Unavailable KATHY JIN MD Unavailable Unavailable KATHY JIN MD Unavailable Unavailable KATHY JIN MD Unavailable Unavailable KATHY JIN MD Unavailable Unavailable KATHY JIN MD Unavailable Unavailable KATHY JIN MD Unavailable Unavailable KATHY JIN MD Unavailable Unavailable KATHY JIN MD Unavailable Unavailable KATHY JIN MD Unavailable Unavailable KATHY JIN MD Unavailable Unavailable KATHY JIN MD Unavailable Unavailable KATHY JIN MD Unavailable Unavailable KATHY JIN MD Unavailable Unavailable KATHY JIN MD Unavailable Unavailable KATHY JIN MD Unavailable Unavailable KATHY JIN MD Unavailable Unavailable KATHY JIN MD Unavailable Unavailable KATHY JIN MD Unavailable Unavailable KATHY JIN MD Unavailable Unavailable KATHY JIN MD Unavailable Unavailable KATHY JIN MD Unavailable Unavailable KATHY JIN MD Unavailable Unavailable KATHY JIN MD Unavailable Unavailable KATHY JIN MD Unavailable Unavailable KATHY JIN MD Unavailable Unavailable KATHY JIN MD Unavailable Unavailable KATHY JIN MD Unavailable Unavailable KATHY JIN MD Unavailable Unavailable KATHY JIN MD Unavailable Unavailable KATHY JIN MD Unavailable Unavailable KATHY JIN MD Unavailable Unavailable KATHY JIN MD Unavailable Unavailable KATHY JIN MD Unavailable Unavailable KATHY JIN MD Unavailable Unavailable KATHY JIN MD Unavailable Unavailable KATHY JIN MD Unavailable Unavailable KATHY JIN MD Unavailable Unavailable KATHY JIN MD Unavailable Unavailable KATHY JIN MD Unavailable Unavailable KATHY JIN MD Unavailable Unavailable KATHY JIN MD Unavailable Unavailable KATHY JIN MD Unavailable Unavailable KATHY JIN MD Unavailable Unavailable KATHY JIN MD Unavailable Unavailable KATHY JIN MD Unavailable Unavailable KATHY JIN MD Unavailable Unavailable KATHY JIN MD Unavailable Unavailable KATHY JIN MD Unavailable Unavailable KATHY JIN MD Unavailable Unavailable KATHY JIN MD Unavailable Unavailable KATHY JIN MD Unavailable Unavailable KATHY JIN MD Unavailable Unavailable KATHY JIN MD Unavailable Unavailable KATHY JIN MD Unavailable Unavailable KATHY JIN MD Unavailable Unavailable KATHY JIN MD Unavailable Unavailable KATHY JIN MD Unavailable Unavailable KATHY JIN MD Unavailable Unavailable KATHY JIN MD Unavailable Unavailable KATHY JNI MD Unavailable Unavailable HIGBY, K WADE PA Unavailable Unavailable HIGBY, K WADE PA Unavailable Unavailable HIGBY, K WADE PA Unavailable Unavailable HIGBY, K WADE PA Unavailable Unavailable HIGBY, K WADE PA Unavailable Unavailable HIGBY, K WADE PA Unavailable Unavailable HIGBY, K WADE PA Unavailable Unavailable HIGBY, K WADE PA Unavailable Unavailable HIGBY, K WADE PA Unavailable Unavailable HIGBY, K WADE PA Unavailable Unavailable HIGBY, K WADE PA Unavailable Unavailable HIGBY, K WADE PA Unavailable Unavailable HIGBY, K WADE PA Unavailable Unavailable HIGBY, K WADE PA Unavailable Unavailable HIGBY, K WADE PA Unavailable Unavailable HIGBY, K WADE PA Unavailable Unavailable HIGBY, K WADE PA Unavailable Unavailable HIGBY, K WADE PA Unavailable Unavailable HIGBY, K WADE PA Unavailable Unavailable HIGBY, K WADE PA Unavailable Unavailable HIGBY, K WADE PA Unavailable Unavailable HIGBY, K WADE PA Unavailable Unavailable HIGBY, K WADE PA Unavailable Unavailable HIGBY, K WADE PA Unavailable Unavailable HIGBY, K WADE PA Unavailable Unavailable HIGBY, K WADE PA Unavailable Unavailable HIGBY, K WADE PA Unavailable Unavailable Jane, E Mayra MD Unavailable Unavailable Jane, E Mayra MD Unavailable Unavailable Jane, E Mayra MD Unavailable Unavailable Jane, E Mayra MD Unavailable Unavailable Jane, E Mayra MD Unavailable Unavailable Jane, E Mayra MD Unavailable Unavailable Jane, E Mayra MD Unavailable Unavailable Jane, E Mayra MD Unavailable Unavailable Jane, E Mayra MD Unavailable Unavailable Jane, E Mayra MD Unavailable Unavailable Jane, E Mayra MD Unavailable Unavailable Jane, E Mayra MD Unavailable Unavailable Jane, E Mayra MD Unavailable Unavailable Jane, E Mayra MD Unavailable Unavailable Jane, E Mayra MD Unavailable Unavailable Jane, E Mayra MD Unavailable Unavailable Jane, E Mayra MD Unavailable Unavailable Jane, E Mayra MD Unavailable Unavailable Jane, E Mayra MD Unavailable Unavailable Jnae, E Mayra MD Unavailable Unavailable Jane, E Mayra MD Unavailable Unavailable Jane, E Mayra MD Unavailable Unavailable Jane, E Mayra MD Unavailable Unavailable Jane, E Mayra MD Unavailable Unavailable Jane, E Mayra MD Unavailable Unavailable Jane, E Mayra MD Unavailable Unavailable Jane, E Mayra MD Unavailable Unavailable Jane, E Mayra MD Unavailable Unavailable Jane, E Mayra MD Unavailable Unavailable Jane, E Mayra MD Unavailable Unavailable Jane, E Mayra MD Unavailable Unavailable Jane, E Mayra MD Unavailable Unavailable Jane, E Mayra MD Unavailable Unavailable Jane, E Mayra MD Unavailable Unavailable Jane, E Mayra MD Unavailable Unavailable Jane, E Mayra MD Unavailable Unavailable Jane, E Mayra MD Unavailable Unavailable Jane, E Mayra MD Unavailable Unavailable Jane, E Mayra MD Unavailable Unavailable Jane, E Mayra MD Unavailable Unavailable Jane, E Mayra MD Unavailable Unavailable Jane, E Mayra MD Unavailable Unavailable Jane, E Mayra MD Unavailable Unavailable Jane, E Mayra MD Unavailable Unavailable Jane, E Mayra MD Unavailable Unavailable Jaen, E Mayra MD Unavailable Unavailable Jane, E Mayra MD Unavailable Unavailable Jane, E Mayra MD Unavailable Unavailable Jane, E Mayra MD Unavailable Unavailable Jane, E Mayra MD Unavailable Unavailable Yvan Lara MD Unavailable Unavailable Yvan Lara MD Unavailable Unavailable Yvan Lara MD Unavailable Unavailable Yvan Lara MD Unavailable Unavailable Re-disclosure Warning The records that you are about to access may contain information from federally-assisted alcohol or drug abuse programs. If such information is present, then the following federally mandated warning applies: This information has been disclosed to you from records protected by federal confidentiality rules (42 CFR part 2). The federal rules prohibit you from making any further disclosure of this information unless further disclosure is expressly permitted by the written consent of the person to whom it pertains or as otherwise permitted by 42 CFR part 2. A general authorization for the release of medical or other information is NOT sufficient for this purpose. The Federal rules restrict any use of the information to criminally investigate or prosecute any alcohol or drug abuse patient.The records that you are about to access may contain highly sensitive health information, the redisclosure of which is protected by Article 27-F of the [facility] Public Health law. If you continue you may have access to information: Regarding HIV / AIDS; Provided by facilities licensed or operated by the [facility] Office of Mental Health; or Provided by the [facility] Office for People With Developmental Disabilities. If such information is present, then the following [facility] mandated warning applies: This information has been disclosed to you from confidential records which are protected by state law. State law prohibits you from making any further disclosure of this information without the specific written consent of the person to whom it pertains, or as otherwise permitted by law. Any unauthorized further disclosure in violation of state law may result in a fine or skilled nursing sentence or both. A general authorization for the release of medical or other information is NOT sufficient authorization for further disc losure. Family History Family Member Name Family Member Gender Family Member Status Date o f Status Description Data Source(s) Unknown Male Problem [facility] ([facility]) Encounters Encounter Providers Location Date Indications Data Source(s ) Outpatient Attender: Shayy Saldaña/Efraín/Amna burnett/Ricardo 04/13/2021 09:30:00 AM EDT [facility] ([facility]) Outpatient Attender: WADE VASQUEZ 02/28/2021 08:36:0 0 AM EDT [facility] CLINIC Attender: WADE OHES-SDB.RM 02/18/2021 12:0 0:00 AM EDT [facility] CLINIC DANNI.ES-SDB. 10/21/2020 01:22:11 PM EDT [facility] CLINIC Attender: WADE OHES-SDB. 10/20/2020 12:0 0:00 AM EDT [facility] Outpatient<td ID="encounterTypeDescripti onID2">followup</td><td>Mayra Lara MD</td><td>[facility], [facility]</td><td>09/03/2020</td><td>7:48AM</td><td>9:00AM</td><td><content ID="encounterDiagnosisID2-0">Acute Renal Failure</content>, <content ID="encounterDiagnosisID2-1">Polyneuropathy</content>, <content ID="encounterDiagnosisID2-2">Depression</content>, <content ID="encounterDiagnosisID2-3">Diabetes with Diabetic Nephropathy</content>, <content ID="encounterDiagnosisID2-4">Ankylosing Spondylitis of Lumbosacral Region</content>, <content ID="encounterDiagnosisID2-5">Male Erectile Dysfunction</content>, <content ID="encounterDiagnosisID2-6">Essential Hypertension Benign</content>, <content ID="encounterDiagnosisID2-7"> Hyperlipidemia</content>, <content ID="encounterDiagnosisID2-8">Psoriasis Arthropathic</content>, <content ID="encounterDiagnosisID2-9">Lumbago with Sciatica</content>, <content ID="encounterDiagnosisID2-10">Esophageal Reflux</content></td> Attender: Mayra Lara MD [facility] 09/03/2020 07:48:00 AM EST - 09/03/2020 09:00:00 AM ES T Esophageal RefluxLumbago with SciaticaMale Erectile DysfunctionAcute Renal FailureLumbago with SciaticaEsophagitis AcuteMale Erectile DysfunctionAcute Renal FailureAnkylosing Spondylitis of Lumbosacral RegionAnkylosing Spondylitis of Lumbosacral RegionDiabetes with Diabetic NephropathyDiabetes with Diabetic NephropathyPolyneuropathyPolyneuropathyHyperlipidemiaHyperlipidemiaEssential Hypertension BenignEssential Hypertension BenignPsoriasis ArthropathicDepressionPsoriasis ArthropathicDepression [place] ([facility]) Esophageal Reflux Lumbago with Sciatica Male Erectile Dysfunction Acute Renal Failure Lumbago with Sciatica Esophagitis Acute Male Erectile Dysfunction Acute Renal Failure Ankylosing Spondylitis of Lumbosacral Re gion Ankylosing Spondylitis of Lumbosacral Re gion 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 Polyneuropathy Polyneuropathy Hyperlipidemia Hyperlipidemia Essential Hypertension Benign Essential Hypertension Benign Psoriasis Arthropathic Depression Psoriasis Arthropathic Depression Outpatient<td ID="encounterTypeDescripti onID1">ANNUAL PE-followup exam</td><td>[facility] Lara MD</td><[facility]><td>09/03/2020</td><td>7:48AM</td><td>9:00AM</td><td><content ID="encounterDiagnosisID1-0">Routine History and Physical Senior Citizen (65-80 Yrs)</content></td> Attender: Mayra Lara MD [facility], TIARA 09/03/2020 07:48:00 AM EST - 09/03/2020 09:00:00 AM ES T Routine History and Physical Senior Citizen (65-80 Yrs) [facility]) Routine History and Physical Senior Citi jhonny (65-80 Yrs) Outpatient<td ID="encounterTypeDescripti onID0"> Annual Wellness SUBSEQUENT visi t(> 1yr since prev.</td><td>Mayra Lara MD</td><[facility]td><td>09/03/2020</td><td> 7:48AM</td><td>9:00AM</td><td><content ID="encounterDiagnosisID0-0">Routine History and Physical Senior Citizen (65-80 Yrs)</content></td> Attender: Mayra Lara MD [facility], [facility] 09/03/2020 07:48:00 A M EST - 09/03/2020 09:00:00 AM EST Routine History and Physical Senior Citi jhonny (65-80 Yrs)Routine History and Physical Senior Citizen (65-80 Yrs) [place] ([facility]) Routine History and Physical Senior Citi jhonny (65-80 Yrs) Routine History and Physical Senior Citi jhonny (65-80 Yrs) CLINIC Attender: WADE OHES[place] 07/22/2020 12:0 0:00 AM EST [facility] <td ID="encounterTypeDescriptionID3">[facility]</td><td>Mayra Lara MD</td><td>[facility], [facility]</td><td>06/01/2020</td><td>7:51AM</td><td>8:12AM</td><td><content ID="encounterDiagnosisID3-0">Acute Renal Failure</content>, <content ID="encounterDiagnosisID3-1">Polyneuropathy</content>, <content ID="encounterDiagnosisID3-2">Depression</content>, <content ID="encounterDiagnosisID3-3">Diabetes with Diabetic Nephropathy</content>, <content ID="encounterDiagnosisID3-4">Ankylosing Spondylitis of Lumbosacral Region</content>, <content ID="encounterDiagnosisID3-5">Psoriasis Arthropathic</content>, <content ID="encounterDiagnosisID3-6">Male Erectile Dysfunction</content></td>Outpatient Attender: Mayra Lara MD [facility], [facility] 06/01/2020 07:51:00 AM EST - 06/01/2020 08:12:00 AM ES T Male Erectile DysfunctionAcute Renal FailureMale Erectile DysfunctionAcute Renal FailureMale Erectile DysfunctionAcute Renal FailureAnkylosing Spondylitis of Lumbosacral RegionAnkylosing Spondylitis of Lumbosacral RegionAnkylosing Spondylitis of Lumbosacral RegionDiabetes with Diabetic NephropathyDiabetes with Diabetic NephropathyDiabetes with Diabetic NephropathyPolyneuropathyPolyneuropathyPolyneuropathyPsoriasis Ar thropathicDepressionPsoriasis ArthropathicDepressionPsoriasis ArthropathicDepression [place] ([facility]) Male Erectile Dysfunction Acute Renal Failure Male Erectile Dysfunction Acute Renal Failure Male Erectile Dysfunction Acute Renal Failure Ankylosing Spondylitis of Lumbosacral Re gion Ankylosing Spondylitis of Lumbosacral Re gion Ankylosing Spondylitis of Lumbosacral Re gion 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 04/21/2020 12:0 0:00 AM EDT [facility] SDB.-SDB 04/09/2020 02:59:13 PM EDT [facility] CLINIC RICARDOB.ES-SDB. 04/08/2020 11:25:27 AM EDT [facility] CLINIC Attender: WADE FABIAN PAReferrer: Ethan SILVAB.ES-SDB. 04/07/2020 12:00:00 AM EDT [facility] <td ID="encounterTypeDescriptionID4">fol lowup</td><td>Mayra Lara MD</td><td>[facility]</td><td>04/02/2020</td><td>7:46AM</td><td>8:15AM</td><td><content ID="encounterDiagnosisID4-0">Esophagitis Acute</content>, <content ID="encounterDiagnosisID4-1">Acute Renal Failure</content>, <content ID="encounterDiagnosisID4-2">Polyneuropathy</content>, <content ID="encounterDiagnosisID4-3">Essential Hypertension Benign</content>, <content ID="encounterDiagnosisID4-4">Depression</content>, <content ID="encounterDiagnosisID4-5">Hyperlipidemia</content>, <content ID="encounterDiagnosisID4-6">Diabetes with Diabetic Nephropathy</content>, <content ID="encounterDiagnosisID4-7">Ankylosing Spondylitis of Lumbosacral Region</content>, <content ID="encounterDiagnosisID4-8">Psoriasis Arthropathic</content>, <content ID="encounterDiagnosisID4-9">Lumbago with Sciatica</content>, <content ID="encounterDiagnosisID4-10">Male Erectile Dysfunction</content>, <content ID="encounterDiagnosisID4-11">Diarrhea</content></td>Outpatient Attender: Mayra Lara MD [facility] 04/02/2020 07:46:00 A M EDT - 04/02/2020 08:15:00 AM EDT DiarrheaMale Erectile DysfunctionLumbago with SciaticaAcute Renal FailureEsophagitis AcuteDiarrheaMale Erectile DysfunctionLumbago with SciaticaAcute Renal FailureEsophagitis AcuteDiarrheaMale Erectile DysfunctionLumbago with SciaticaAcute Renal FailureEsophagitis AcuteDiarrheaMale Erectile DysfunctionLumbago with SciaticaAcute Renal FailureEsophagitis AcuteAnkylosing Spondylitis of Lumbosacral RegionAnkylosing Spondylitis of Lumbosacral RegionAnkylosing Spondylitis of Lumbosacral RegionAnkylosing Spondylitis of Lumbosacral RegionDiabetes with Diabetic NephropathyDiabetes with Diabetic NephropathyDiabetes with Diabetic NephropathyDiabetes with Diabetic NephropathyPolyneuropathy PolyneuropathyPolyneuropathyPolyneuropathyHyperlipidemiaHyperlipidemiaHyperlipid emiaHyperlipidemiaEssential Hypertension BenignEssential Hypertension BenignEssential Hypertension BenignEssential Hypertension BenignPsoriasis ArthropathicDepressionPsoriasis ArthropathicDepressionPsoriasis ArthropathicDepressionPsoriasis ArthropathicDepression [place] [facility]) Diarrhea Male Erectile Dysfunction Lumbago with Sciatica Acute Renal Failure Esophagitis Acute Diarrhea Male Erectile Dysfunction Lumbago with Sciatica Acute Renal Failure Esophagitis Acute Diarrhea Male Erectile Dysfunction Lumbago with Sciatica Acute Renal Failure Esophagitis Acute Diarrhea Male Erectile Dysfunction Lumbago with Sciatica Acute Renal Failure Esophagitis Acute Ankylosing Spondylitis of Lumbosacral Re gion Ankylosing Spondylitis of [place]umbos[place]ral Re gion Ankylosing Spondylitis of [place]umbos[place]ral Re gion Ankylosing Spondylitis of Lumbosacral Re gion 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 Polyneuropathy Polyneuropathy Polyneuropathy Polyneuropathy Hyperlipidemia Hyperlipidemia Hyperlipidemia Hyperlipidemia Essential Hypertension Benign Essential Hypertension Benign Essential Hypertension Benign Essential Hypertension Benign Psoriasis Arthropathic Depression Psoriasis Arthropathic Depression Psoriasis Arthropathic Depression Psoriasis Arthropathic Depression Immunizations Vaccine Date Status Description Data Source(s) COVID-19 VACCINE Moderna 09/13/2020 12:00:00 AM EST completed [facility] Vaccine Series Complete: YESThis Data wa s [facility] to [facility]. COVID-19 VACCINE, [id number], LNP-S (MODERNA)/PF 09/13/2020 1 2:00:00 AM EST completed [facility] COVID-19 VACCINE Moderna 08/12/2020 12:00:00 AM EST completed [facility] Vaccine Series Complete: NOThis Data was Submitted to [facility]. COVID-19 VACCINE, [id number], LNP-S (MODERNA)/PF 08/12/2020 1 2:00:00 AM EST completed [facility] Medications Medication Brand Name Start Date Product Form Dose Route Admi nistrative Instructions Pharmacy Instructions Status Indications Reaction Description Data Source(s) 31 gauge x 3/16" 03/02/2021 12:00:00 AM EDT needle 100 USE 4 NEEDLES PER DAY WITH LANTUS AND HUMALOG USE 4 NEEDLES PER DAY WITH LANTUS AND HUMALOG SOLD: 03/03/2021 [facility] 200 unit/mL (3 mL) 02/28/2021 12:00:00 AM EDT insulin pen 6 INJECT DIRECTED , WITH MEALS THREE TIMES A DAY BEFORE MEALS PER SLIDING PROVIDED IN OFFICE MAXIMUM DAILY DOSE = 36 UNITS INJECT DIRECTED , WITH MEALS THREE TI MES A DAY BEFORE MEALS PER SLIDING PROVIDED IN OFFICE MAXIMUM DAILY DOSE = 36 UNITS SOLD: 03/03/2021 [facility] atorvastatin 40 MG Oral Tablet ATORVASTATIN CALCIUM 02/28/2021 1 2:00:00 AM EDT tablet 90 TAKE ONE TABLET BY MOUTH EVERY D AY TAKE ONE TABLET BY MOUTH EVERY DAY SOLD: 03/03/2021 [facility] 200 unit/mL (3 mL) 02/28/2021 12:00:00 AM EDT insulin pen 6 INJECT DIRECTED , WITH MEALS THREE TIMES A DAY BEFORE MEALS PER SLIDING PROVIDED IN OFFICE MAXIMUM DAILY DOSE = 36 UNITS INJECT DIRECTED , WITH MEALS THREE TI MES A DAY BEFORE MEALS PER SLIDING PROVIDED IN OFFICE MAXIMUM DAILY DOSE = 36 UNITS SOLD: 05/17/2021 [facility] Diclofenac Sodium 0.01 MG/MG Topical Gel Diclofenac So dium 1 % GEL Diclofenac Sodium 1 % GEL 02/18/2021 12:00:00 AM EDT 4 g Apply externally active Psoriatic arthritis Apply 4 g topically 4 (four) times a day as needed (pain) [facility] Psoriatic arthritis Adalimumab (Humira Pen) 40 MG/0.4ML KT [id number] 02/18/2021 12:00:00 AM EDT 40 mg Subcutaneous active Psoriatic arthritis Inject 40 mg under the skin every 14 (fourteen) days [facility] Psoriatic arthritis 1.5 mg/0.5 mL 12/27/2020 12:00:00 AM EDT pen injector 2 INJECT 0.5ML UNDER THE SKIN ONCE A WEEK INJECT 0.5ML UNDER THE SKIN ONCE A WEEK SOLD: 04/20/2021 [facility] 1.5 mg/0.5 mL 12/27/2020 12:00:00 AM EDT pen injector 2 INJECT 0.5ML UNDER THE SKIN ONCE A WEEK INJECT 0.5ML UNDER THE SKIN ONCE A WEEK SOLD: 01/26/2021 [facility] 1.5 mg/0.5 mL 12/27/2020 12:00:00 AM EDT pen injector 2 INJECT 0.5ML UNDER THE SKIN ONCE A WEEK INJECT 0.5ML UNDER THE SKIN ONCE A WEEK SOLD: 05/17/2021 [facility] 1.5 mg/0.5 mL 12/27/2020 12:00:00 AM EDT pen injector 2 INJECT 0.5ML UNDER THE SKIN ONCE A WEEK INJECT 0.5ML UNDER THE SKIN ONCE A WEEK SOLD: 03/22/2021 [facility] 1.5 mg/0.5 mL 12/27/2020 12:00:00 AM EDT pen injector 2 INJECT 0.5ML UNDER THE SKIN ONCE A WEEK INJECT 0.5ML UNDER THE SKIN ONCE A WEEK SOLD: 12/29/2020 [facility] 1.5 mg/0.5 mL 12/27/2020 12:00:00 AM EDT pen injector 2 INJECT 0.5ML UNDER THE SKIN ONCE A WEEK INJECT 0.5ML UNDER THE SKIN ONCE A WEEK SOLD: 02/22/2021 [facility] pantoprazole 40 MG Delayed Release Oral Tablet PANTOPRAZOLE SODIUM 11/30/2020 12:00:00 AM EDT tablet,delayed release (DR/EC) 90 T JAIME ONE TABLET BY MOUTH EVERY DAY TAKE ONE TABLET BY MOUTH EVERY DAY SOLD: 03/03/2021 [facility] pantoprazole 40 MG Delayed Release Oral Tablet PANTOPRAZOLE SODIUM 11/30/2020 12:00:00 AM EDT tablet,delayed release (DR/EC) 90 T JAIME ONE TABLET BY MOUTH EVERY DAY TAKE ONE TABLET BY MOUTH EVERY DAY SOLD: 12/02/2020 [facility] Adalimumab (HUMIRA PEN) 40 MG/0.4ML KT [id number] 10/22/2020 12 :00:00 AM EDT 40 mg Subcutaneous aborted Inject 40 mg under the skin every 14 (fourteen) days [facility] Diclofenac Sodium 0.01 MG/MG Topical Gel Diclofenac So dium 1 % GEL Diclofenac Sodium 1 % GEL 10/20/2020 12:00:00 AM EDT 4 g Apply externally aborted Psoriatic arthritis Apply 4 g topically 4 (four) times a day as needed (pain) [facility] Psoriatic arthritis 1 % 10/20/2020 12:00:00 AM EDT gel 300 APPLY 4GM FOUR TIMES A DAY NEEDED FOR PAIN APPLY 4GM FOUR TIMES A DAY NEEDED FOR PAIN SOLD: 10/24/2020 [facility] 1 % 10/20/2020 12:00:00 AM EDT gel 300 APPLY 4GM FOUR TIMES A DAY NEEDED FOR PAIN APPLY 4GM FOUR TIMES A DAY NEEDED FOR PAIN SOLD: 02/05/2021 [facility] BLOOD SUGAR DIAGNOSTIC 09/13/2020 12:00:00 AM EST strip 100 TEST ONCE DAILY AND NEEDED TEST ONCE DAILY AND NEEDED SOLD: 09/15/2020 [facility] BLOOD SUGAR DIAGNOSTIC 09/13/2020 12:00:00 AM EST strip 100 TEST ONCE DAILY AND NEEDED TEST ONCE DAILY AND NEEDED SOLD: 02/05/2021 [facility] gabapentin 300 MG Oral Capsule Gabapentin 300 MG Oral Capsule Gabapentin 300 MG Oral Capsule 09/03/2020 12:00:00 AM EST 1 activ e gabapentin 300 MG Oral Capsule [facility] [employer] [facility] 25 mg 09/03/2020 12:00:00 AM EST tablet 90 TAKE ONE TABLET BY MOUTH EVERY DAY TAKE ONE TABLET BY MOUTH EVERY DAY SOLD: 12/02/2020 [facility] empagliflozin 25 MG Oral Tablet [Jardiance] Jardiance 25 MG Oral Tablet Jardiance 25 MG Oral Tablet 09/03/2020 12:00:00 AM EST 1 active empagliflozin 25 MG Oral Tablet [Jardiance] [facility] 25 mg 09/03/2020 12:00:00 AM EST tablet 90 TAKE ONE TABLET BY MOUTH EVERY DAY TAKE ONE TABLET BY MOUTH EVERY DAY SOLD: 03/03/2021 [facility] 25 mg 09/03/2020 12:00:00 AM EST tablet 90 TAKE ONE TABLET BY MOUTH EVERY DAY TAKE ONE TABLET BY MOUTH EVERY DAY SOLD: 09/04/2020 [facility] 50 mg 09/02/2020 12:00:00 AM EST tablet 270 TAKE 1 & 1/2 TABLETS BY MOUTH TWO TIMES A DAY TAKE 1 & 1/2 TABLETS BY MOUTH TWO TIMES A DAY SOLD: 09/04/19 [facility] 50 mg 09/02/2020 12:00:00 AM EST tablet 270 TAKE 1 & 1/2 TABLETS BY MOUTH TWO TIMES A DAY TAKE 1 & 1/2 TABLETS BY MOUTH TWO TIMES A DAY SOLD: 03/03/20 [facility] 10 mg 09/02/2020 12:00:00 AM EST tablet 90 TAKE ONE TABLET BY MOUTH EVERY DAY TAKE ONE TABLET BY MOUTH EVERY DAY SOLD: 09/04/2020 [facility] 10 mg 09/02/2020 12:00:00 AM EST tablet 90 TAKE ONE TABLET BY MOUTH EVERY DAY TAKE ONE TABLET BY MOUTH EVERY DAY SOLD: 12/02/2020 [facility] 50 mg 09/02/2020 12:00:00 AM EST tablet 270 TAKE 1 & 1/2 TABLETS BY MOUTH TWO TIMES A DAY TAKE 1 & 1/2 TABLETS BY MOUTH TWO TIMES A DAY SOLD: 12/03/19 [facility] 300 mg 09/01/2020 12:00:00 AM EST capsule 270 TAKE ONE CAPSULE BY MOUTH THREE TIMES A DAY TAKE ONE CAPSULE BY MOUTH THREE TIMES A DAY SOLD: 03/03/2021 [facility] 300 mg 09/01/2020 12:00:00 AM EST capsule 270 TAKE ONE CAPSULE BY MOUTH THREE TIMES A DAY TAKE ONE CAPSULE BY MOUTH THREE TIMES A DAY SOLD: 09/04/2020 [facility] 300 mg 09/01/2020 12:00:00 AM EST capsule 270 TAKE ONE CAPSULE BY MOUTH THREE TIMES A DAY TAKE ONE CAPSULE BY MOUTH THREE TIMES A DAY SOLD: 12/02/2020 [facility] gabapentin 300 MG Oral Capsule Gabapentin 300 MG Oral Capsule Gabapentin 300 MG Oral Capsule 08/26/2020 12:00:00 AM EST 1 abort ed gabapentin 300 MG Oral Capsule [place] ([facility]) 500 mg 07/12/2020 12:00:00 AM EST capsule 21 TAKE ONE CAPSULE BY MOUTH THREE TIMES A DAY UNTIL GONE TAKE ONE CAPSULE BY MOUTH THREE TIMES A DAY UNTIL GONE SOLD: 07/12/2020 [facility] gabapentin 300 MG Oral Capsule Gabapentin 300 MG Oral Capsule Gabapentin 300 MG Oral Capsule 06/14/2020 12:00:00 AM EST abort ed gabapentin 300 MG Oral Capsule [place] ([facility]) Simvastatin 10 MG Oral Tablet Simvastatin 10 MG OR TAB S Simvastatin 10 MG OR TABS 06/12/2020 12:00:00 AM EST active simvastatin 10 MG Oral Tablet [place] ([facility]) Metoprolol Tartrate 50 MG Oral Tablet Metoprolol Tartr ate 50 MG OR TABS Metoprolol Tartrate 50 MG OR TABS 06/12/2020 12:00:00 AM EST active metoprolol tartrate 50 MG Oral Tablet [place] [facility]) 100 mg 06/04/2020 12:00:00 AM EST tablet 90 TAKE ONE TABLET BY MOUTH EVERY DAY TAKE ONE TABLET BY MOUTH EVERY DAY SOLD: 12/02/2020 [facility] Hydralazine Hydrochloride 25 MG Oral Tablet HYDRALAZINE HCL 06/04/2020 12:00:00 AM EST tablet 180 TAKE ONE TABLET BY MOUTH TWI CE A DAY TAKE ONE TABLET BY MOUTH TWICE A DAY SOLD: 06/08/2020 [facility] Hydralazine Hydrochloride 25 MG Oral Tablet HYDRALAZINE HCL 06/04/2020 12:00:00 AM EST tablet 180 TAKE ONE TABLET BY MOUTH TWI CE A DAY TAKE ONE TABLET BY MOUTH TWICE A DAY SOLD: 12/02/2020 [facility] 20 mg 06/04/2020 12:00:00 AM EST tablet 180 TAKE ONE TABLET BY MOUTH TWICE A DAY TAKE ONE TABLET BY MOUTH TWICE A DAY SOLD: 03/03/2021 [facility] 20 mg 06/04/2020 12:00:00 AM EST tablet 180 TAKE ONE TABLET BY MOUTH TWICE A DAY TAKE ONE TABLET BY MOUTH TWICE A DAY SOLD: 09/04/2020 [facility] 100 mg 06/04/2020 12:00:00 AM EST tablet 90 TAKE ONE TABLET BY MOUTH EVERY DAY TAKE ONE TABLET BY MOUTH EVERY DAY SOLD: 06/08/2020 [facility] 100 mg 06/04/2020 12:00:00 AM EST tablet 90 TAKE ONE TABLET BY MOUTH EVERY DAY TAKE ONE TABLET BY MOUTH EVERY DAY SOLD: 03/03/2021 [facility] 20 mg 06/04/2020 12:00:00 AM EST tablet 180 TAKE ONE TABLET BY MOUTH TWICE A DAY TAKE ONE TABLET BY MOUTH TWICE A DAY SOLD: 06/08/2020 [facility] 100 mg 06/04/2020 12:00:00 AM EST tablet 90 TAKE ONE TABLET BY MOUTH EVERY DAY TAKE ONE TABLET BY MOUTH EVERY DAY SOLD: 09/04/2020 [facility] Hydralazine Hydrochloride 25 MG Oral Tablet HYDRALAZINE HCL 06/04/2020 12:00:00 AM EST tablet 180 TAKE ONE TABLET BY MOUTH TWI CE A DAY TAKE ONE TABLET BY MOUTH TWICE A DAY SOLD: 03/03/2021 [facility] 25 mg 06/04/2020 12:00:00 AM EST tablet 180 TAKE ONE TABLET BY MOUTH TWICE A DAY TAKE ONE TABLET BY MOUTH TWICE A DAY SOLD: 09/04/2020 [facility] 20 mg 06/04/2020 12:00:00 AM EST tablet 180 TAKE ONE TABLET BY MOUTH TWICE A DAY TAKE ONE TABLET BY MOUTH TWICE A DAY SOLD: 12/02/2020 [facility] gabapentin 300 MG Oral Capsule Gabapentin 300 MG Oral Capsule Gabapentin 300 MG Oral Capsule 06/01/2020 12:00:00 AM EST 1 abort ed gabapentin 300 MG Oral Capsule [place] ([facility]) 100 unit/mL (3 mL) 04/14/2020 12:00:00 AM EDT insulin pen 60 INJECT 71 UNITS UNDER THE SKIN ONCE DAILY INJECT 71 UNITS UNDER THE SKIN ONCE DAILY SOLD: 04/18/2020 [facility] 3 ML Insulin Glargine 100 UNT/ML Pen Injector [Lantus] 100 unit/mL (3 mL) INSULIN GLARGINE,HUM.REC.ANLOG 04/14/2020 12:00:00 AM EDT insulin pen 60 INJECT 71 UNITS UNDER THE SKIN ONCE DAILY INJECT 71 UNITS UNDER THE SKIN ONCE DAILY SOLD: 12/21/2020 [facility] 100 unit/mL (3 mL) 04/14/2020 12:00:00 AM EDT insulin pen 60 INJECT 71 UNITS UNDER THE SKIN ONCE DAILY INJECT 71 UNITS UNDER THE SKIN ONCE DAILY SOLD: 08/25/2020 [facility] 3 ML Insulin Glargine 100 UNT/ML Pen Inj lenny [Lantus] Lantus SoloStar 100 UNIT/ML Subcutaneous Solution Pen-injector Lantus SoloStar 100 UNIT/ML Subcutaneous Solution Pen-injector 04/14/2020 12:00:00 AM EDT active 3 ML insulin glargine 100 UNT/ML Pen Inj lenny [Lantus] [place] ([facility]) 3 ML Insulin Glargine 100 UNT/ML Pen Injector [Lantus] 100 unit/mL (3 mL) INSULIN GLARGINE,HUM.REC.ANLOG 04/14/2020 12:00:00 AM EDT insulin pen 60 INJECT 71 UNITS UNDER THE SKIN ONCE DAILY INJECT 71 UNITS UNDER THE SKIN ONCE DAILY SOLD: 04/01/2021 [facility] Insulin Glargine 100 UNT/ML Injectable S olution [Lantus] Lantus 100 UNIT/ML Subcutaneous Solution Lantus 100 UNIT/ML Subcutaneous Solution 04/13/2020 12:00:00 AM EDT active insulin glargine 100 UNT/ML Injectable Solution [Lantus] [place] ([facility]) Metformin hydrochloride 1000 MG Oral Tablet metFORMIN HCl 1000 MG Oral Tablet metFORMIN HCl 1000 MG Oral Tablet 03/17/2020 12:00:00 AM EDT aborted metformin hydrochloride 1000 MG Oral Tab let [facility] ([facility]) 31 gauge x 3/16" 03/09/2020 12:00:00 AM EDT needle 90 USE 1 NEEDLE ONCE DAILY WITH LANTUS PEN USE 1 NEEDLE ONCE DAILY WITH LANTUS PEN SOLD: 12/21/2020 [facility] 31 gauge x 3/16" 03/09/2020 12:00:00 AM EDT needle 90 USE 1 NEEDLE ONCE DAILY WITH LANTUS PEN USE 1 NEEDLE ONCE DAILY WITH LANTUS PEN SOLD: 06/02/2020 [facility] 31 gauge x 3/16" 03/09/2020 12:00:00 AM EDT needle 90 USE 1 NEEDLE ONCE DAILY WITH LANTUS PEN USE 1 NEEDLE ONCE DAILY WITH LANTUS PEN SOLD: 09/15/2020 [facility] 10 mg 03/09/2020 12:00:00 AM EDT tablet 90 TAKE ONE TABLET BY MOUTH EVERY DAY TAKE ONE TABLET BY MOUTH EVERY DAY SOLD: 06/08/2020 [facility] 1.5 mg/0.5 mL 01/13/2020 12:00:00 AM EDT pen injector 2 INJECT 1 PEN UNDER THE SKIN ONCE WEEKLY INJECT 1 PEN UNDER THE SKIN ONCE WEEKLY SOLD: 06/02/2020 [facility] 1.5 mg/0.5 mL 01/13/2020 12:00:00 AM EDT pen injector 2 INJECT 1 PEN UNDER THE SKIN ONCE WEEKLY INJECT 1 PEN UNDER THE SKIN ONCE WEEKLY SOLD: 11/24/2020 [facility] 1.5 mg/0.5 mL 01/13/2020 12:00:00 AM EDT pen injector 2 INJECT 1 PEN UNDER THE SKIN ONCE WEEKLY INJECT 1 PEN UNDER THE SKIN ONCE WEEKLY SOLD: 07/07/2020 [facility] 1.5 mg/0.5 mL 01/13/2020 12:00:00 AM EDT pen injector 2 INJECT 1 PEN UNDER THE SKIN ONCE WEEKLY INJECT 1 PEN UNDER THE SKIN ONCE WEEKLY SOLD: 10/27/2020 [facility] 1.5 mg/0.5 mL 01/13/2020 12:00:00 AM EDT pen injector 2 INJECT 1 PEN UNDER THE SKIN ONCE WEEKLY INJECT 1 PEN UNDER THE SKIN ONCE WEEKLY SOLD: 09/01/2020 [facility] 1.5 mg/0.5 mL 01/13/2020 12:00:00 AM EDT pen injector 2 INJECT 1 PEN UNDER THE SKIN ONCE WEEKLY INJECT 1 PEN UNDER THE SKIN ONCE WEEKLY SOLD: 05/05/2020 [facility] 1.5 mg/0.5 mL 01/13/2020 12:00:00 AM EDT pen injector 2 INJECT 1 PEN UNDER THE SKIN ONCE WEEKLY INJECT 1 PEN UNDER THE SKIN ONCE WEEKLY SOLD: 04/07/2020 [facility] 1.5 mg/0.5 mL 01/13/2020 12:00:00 AM EDT pen injector 2 INJECT 1 PEN UNDER THE SKIN ONCE WEEKLY INJECT 1 PEN UNDER THE SKIN ONCE WEEKLY SOLD: 08/04/2020 [facility] 1.5 mg/0.5 mL 01/13/2020 12:00:00 AM EDT pen injector 2 INJECT 1 PEN UNDER THE SKIN ONCE WEEKLY INJECT 1 PEN UNDER THE SKIN ONCE WEEKLY SOLD: 09/28/2020 [facility] empagliflozin 10 MG Oral Tablet [Jardiance] Jardiance 10 MG Oral Tablet Jardiance 10 MG Oral Tablet 12/25/2019 12:00:00 AM EDT 1 aborted empagliflozin 10 MG Oral Tablet [Jardiance] [place] ([facility] Naproxen 500 MG Oral Tablet Naproxen 500 MG Oral Tablet 09/13 12:00:00 AM EDT aborted naproxen 500 MG Oral Tablet [place] [facility] 300 mg 09/13/2019 12:00:00 AM EST capsule 180 TAKE ONE CAPSULE BY MOUTH TWICE A DAY TAKE ONE CAPSULE BY MOUTH TWICE A DAY SOLD: 06/08/2020 [facility] 50 mg 09/12/2019 12:00:00 AM EST tablet 270 TAKE 1 & 1/2 TABLETS BY MOUTH TWO TIMES A DAY TAKE 1 & 1/2 TABLETS BY MOUTH TWO TIMES A DAY SOLD: 06/08/20 [facility] 10 mg 09/12/2019 12:00:00 AM EST tablet 90 TAKE ONE TABLET BY MOUTH EVERY DAY TAKE ONE TABLET BY MOUTH EVERY DAY SOLD: 06/08/2020 [facility] gabapentin 300 MG Oral Capsule Gabapentin 300MG Oral C apsule Gabapentin 300MG Oral Capsule 07/01/2019 12:00:00 AM EST 1 abort ed gabapentin 300 MG Oral Capsule [place] [facility] Metoprolol Tartrate 50 MG Oral Tablet Metoprolol Tartr ate 50MG Oral Tablet Metoprolol Tartrate 50MG Oral Tablet 06/27/2019 12:00:00 AM EST aborted metoprolol tartrate 50 MG Oral T ablet [place] ([facility]) Simvastatin 10 MG Oral Tablet Simvastatin 10MG Oral Ta blet Simvastatin 10MG Oral Tablet 06/27/2019 12:00:00 AM EST 1 aborted simvastatin 10 MG Oral Tablet [place] ([facility]) BLOOD SUGAR DIAGNOSTIC 06/19/2019 12:00:00 AM EST strip 100 USE TO TEST ONCE DAILY AND NEEDED USE TO TEST ONCE DAILY AND NEEDED SOLD: 05/25/2020 [facility] FreeStyle Lite Test In Vitro Strip FreeStyle Lite Test In Vi tro Strip 06/19/2019 12:00:00 AM EST completed Free Style Lite Test [place] ([facility]) Simvastatin 10 MG Oral Tablet Simvastatin 10 MG Oral Tablet 06/12/2019 12:00:00 AM EST aborted simvastatin 10 M G Oral Tablet [place] ([facility]) Famotidine 20 MG Oral Tablet Famotidine 20MG Oral Tabl et Famotidine 20MG Oral Tablet 05/30/2019 12:00:00 AM EST aborted famotidine 20 MG Oral Tablet [place] ([facility]) 3 ML Insulin Glargine 100 UNT/ML Pen Inj lenny [Lantus] Lantus SoloStar 100UNIT/ML Subcutaneous Solution Pen-injector Lantus SoloStar 100UNIT/ML Subcutaneous Solution Pen-injector 02/03/2019 12:00:00 AM EDT aborted 3 ML insulin glargine 100 UNT/ML Pen Inj lenny [Lantus] [place] ([facility]) tadalafil 5 MG Oral Tablet [Cialis] Cialis 5MG Oral Ta blet Cialis 5MG Oral Tablet 06/11/2018 12:00:00 AM EST aborted tadalafil 5 MG Oral Tablet [Cialis] [place] ([facility]) Insurance Providers Payer name Policy type / Coverage type Policy ID Covered libertarian ID Covered libertarian's relationship to burrell Policy Burrell Plan Information EXCELLUS MEDICARE BLUE PPO G [id number] Self [id number] BCBS of [facility] [employer] Other 0 [id number] Se lf 0 [place] of [place] Other 0 [id number] Se lf 0 EXCELLUS BCBS MEDICARE [id number] EXCELLUS BCBS MEDICARE [id number] Self [id number] BC[employer] of [facility] [employer] Other 0 [id number] Se lf 0 BC[employer] of [facility] [employer] Other 0 [id number] Se lf 0 BC[employer] of [facility] [employer] Other 0 [id number] Se lf 0 BC[employer] of [facility] [employer] Other 0 [id number] Se lf 0 BC[employer] of [facility] [employer] Other 0 [id number] Se lf 0 BC[employer] of [facility] [employer] Other 0 [id number] Se lf 0 BC[employer] of [facility] [employer] Other 0 [id number] Se lf 0 BC[employer] of [facility] [employer] Other 0 [id number] Se lf 0 BC[employer] of [facility] [employer] Other 0 [id number] Se lf 0 BC[employer] of [facility] [employer] Other 0 [id number] Se lf 0 BC[employer] of [facility] [employer] Other 0 [id number] Se lf 0 BC[employer] of [facility] [employer] Other 0 [id number] Se lf 0 BC[employer] of [facility] [employer] Other 0 [id number] Se lf 0 BCBS of [facility] [employer] Other 0 [id number] Se lf 0 BC[employer] of [facility] [employer] Other 0 [id number] Se lf 0 [facility] Other 0 [id number] Se lf 0 [facility] [employer] Other 0 [id number] Se lf 0 [facility] [employer] Other 0 [id number] Se lf 0 BCBS of [facility] [employer] Other 0 [id number] Se lf 0 BCBS [place] [id number] S [id number] [facility] [id number] 18 [id number] MEDICARE PART A [facility] UNAVAILABLE 18 UNAVAILABLE [facility] Commercial [id number] Self [id number] Medicare Part A [place] Medicare Primary [id number] Self [id number] MEDICARE BLUE PPO 306 [id number] SP [id number] Problems, Conditions, and Diagnoses Code Display Name Description Problem Type Effective Dates Data Source(s) L40.50 Arthropathic psoriasis, unspecified Arthropathic psoriasis, unspecified Diagnosis 10/20/2020 07:39:38 AM EDT [facility] R76.8 Other specified abnormal immunological f indings in serum Other specified abnormal immunological f Diagnosis 07/22/2020 07:54:28 AM EST [facility] M45.9 Ankylosing spondylitis of unspecified si adam in spine Ankylosing spondylitis of unspecified si Diagnosis 07/22/2020 07:54:28 AM EST [facility] Z79.899 Other residential (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) 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 Diagnosis 04/07/2020 10:41:47 AM EDT [facility] M45.9 Ankylosing spondylitis Ankylosing spondylitis [id number] 07/22/2020 12:00:00 AM EST [facility] R76.8 Ds DNA antibody positive Ds DNA antibody positive 6457 200004/21/2020 12:00:00 AM EDT [facility] E11.9 Diabetes mellitus Diabetes mellitus [id number] 04/07/2020 12:00:00 AM EDT [facility] I10 Hypertension Hypertension [id number] 04/07/2020 12:00:00 A M EDT [facility] L40.50 Psoriatic arthritis Psoriatic arthritis [id number] 0 04/07/2020 12:00:00 AM [facility] Surgeries/Procedures Procedure Description Date Indications Data Source(s) OFFICE OUTPATIENT NEW 45 MINUTES 04/13/2021 12:00:00 A M [facility] ([facility], ) Annual depression screening, 15 minutes -Annual depression screening- 15 min. 09/03/2020 12:00:00 AM [facility] ([facility]) Annual wellness visit, includes a person alized prevention plan of service (pps), subsequent visit - subseq't annual wellness exam(1 yr after Initial) 09/03/2020 12:00:00 AM [facility] ([facility]) Venipuncture (routine) Venipuncture (routine) 09/02/2020 12:00:00 A M [facility] ([facility]) HgbA1C HgbA1C 09/02/2020 12:00:00 AM [facility] CMP-Complete Metabolic Profile CMP-Complete Metabolic Profil e 09/02/2020 12:00:00 AM [facility] Fasting Lipid Profile Fasting Lipid Profile 09/02/2020 12:00:00 AM [facility] ([facility]) CREATININE OTHER SOURCE Creatinine: URINE 09/02/2020 12:00:00 AM [facility] ([facility]) Mircro Alb urine Mircro Alb urine 09/02/2020 12:00:00 AM [facility] ([facility]) Prostate cancer screening; prostate [facility] (psa) PSA -Prostate Screening once/yr(over age 50) 09/02/2020 12:00:00 AM EST [facility] BMP-Basic Metabolic Profile BMP-Basic Metabolic Profile 05/16 12:00:00 AM [facility] Venipuncture (routine) Venipuncture (routine) 05/31/2020 12:00:00 A M EST [place] ([facility]) HgbA1C HgbA1C 05/31/2020 12:00:00 AM EST [facility] BMP-Basic Metabolic Profile BMP-Basic Metabolic Profile 03/16 12:00:00 AM EDT [place] [facility] Venipuncture (routine) Venipuncture (routine) 03/31/2020 12:00:00 A M EDT [place] ([facility]) Results ID Date Data Source [id number] 05/14/2021 10:45:00 AM [facility]T [facility] Name Value Range Interpretation Code Description Data Radha rce(s) Supporting Document(s) SARS-CoV-2 (COVID-19) RNA [Presence] in Respiratory specimen by STEFANY with probe detection Not Detected [facility] This lab was ordered by [facility] [place] and reported by [email or web address]. ID Date Data Source [id number] 02/28/2021 02:02:00 PM EDT [facility] COLLECTED @ LMA COLLECTED @ LMA COLLECTED @ LMA Name Value Range Interpretation Code Description Data Radha rce(s) Supporting Document(s) Leukocytes [#/volume] in Blood by Automated count 5.3 10*3/uL 4.45-10 .71 [facility] Erythrocytes [#/volume] in Blood by Automated count 5.53 10*6/uL 4.3- 6.1 [facility] Hemoglobin [Moles/volume] in Blood 15.4 g/dL 13-18 [facility] Hematocrit [Volume Fraction] of Blood by Automated count 47.8 % 4 2-52 N [facility] Erythrocyte mean corpuscular volume [Ent itic volume] in Cord blood by Automated count 86 fL 80-96 N [facility] ital Erythrocyte mean corpuscular hemoglobin [Entitic mass] by Au tomated count 28 pg 27-31 [facility] Erythrocyte mean corpuscular hemoglobin concentration [Mass/volume] in Cord blood 32 g/dL 33-37 Below low normal [facility] Erythrocyte distribution width [Entitic volume] by Automated count 13 % 11-15 N [facility] Platelets [#/volume] in Blood by Automated count 202 10*3/uL 130-472 [facility] Platelet mean volume [Entitic volume] in Blood 10.1 fL 9.1-13.1 [facility] Neutrophils/100 leukocytes in Blood by Automated count 61.4 % 41- 77 [facility] Neutrophils [#/volume] in Blood by Automated count 3.2 U 1.7-7.6 N [facility] Lymphocytes/100 leukocytes in Blood by Automated count 25.2 % 14- 46 N [facility] Lymphocytes [#/volume] in Blood by Automated count 1.3 U 0.6-4.6 N [facility] Monocytes/100 leukocytes in Blood by Automated count 8.1 % 4-12 N [facility] Monocytes [#/volume] in Blood by Automated count 0.4 U 0.2-1.2 N [facility] Eosinophils/100 leukocytes in Blood by Automated count 3.2 % 0-7 N [facility] Eosinophils [#/volume] in Blood by Automated count 0.2 U 0.0-0.5 N [facility] Basophils/100 leukocytes in Blood by Automated count 1.3 % 0.4-1 .3 N [facility] Basophils [#/volume] in Blood by Automated count 0.1 U 0.0-0.2 N [facility] NUCLEATED RED BLOOD CELL 0 % [facility] NUCLEATED RED BLOOD CELL# 0 U [facility] Immature granulocytes [Presence] in Blood by Automated count 0-2 N [facility] Immature granulocytes [#/volume] in Blood by Automated count 0.0 U 0-0.1 N [facility] Manual Differential panel - Blood NO [facility] ID Date Data Source [id number] 02/28/2021 02:17:00 PM EDT [facility] COLLECTED @ [facility]MA COLLECTED @ LMA COLLECTED @ LMA Name Value Range Interpretation Code Description Data Radha rce(s) Supporting Document(s) Urea nitrogen [Mass/volume] in Serum or Plasma 24 mg/dL 9-23 Above high normal [facility] Sodium [Moles/volume] in Serum or Plasma 141 mmol/L 132-146 N [facility] Potassium [Moles/volume] in Serum or Plasma 4.8 mmol/L 3.5-5.5 N [facility] Chloride [Moles/volume] in Serum or Plasma 109 mmol/L 99-109 N [facility] Carbon dioxide, total [Moles/volume] in Serum or Plasma 31 mmol/L 20 -31 N [facility] Anion gap in Serum or Plasma 6 mmol/L 8-16 Below low normal [facility] Glucose [Mass/volume] in Serum or Plasma 161 mg/dL 74-106 Above high normal [facility] Creatinine 1.4 mg/dL 0.5-1.1 Above high normal [facility] Glomerular filtration rate/1.73 sq M.pre dicted [Volume Rate/Area] in Serum or Plasma 51 ml/min ABOVE 60 [facility] ital Alanine aminotransferase [Enzymatic acti vity/volume] in Serum or Plasma by With P-5'-P 27 U/L 10-49 [facility] ital Aspartate aminotransferase [Enzymatic ac tivity/volume] in Serum or Plasma by With P-5'-P 17 U/L 0-33 N [facility] pital Alkaline phosphatase [Enzymatic activity/volume] in Serum or Plasma 93 U/L 45-129 N [facility] Calcium [Mass/volume] in Serum or Plasma 8.7 mg/dL 8.5-10.1 N [facility] Bilirubin.total [Mass/volume] in Serum or Plasma 0.5 mg/dL 0.3-1.2 N [facility] Albumin [Mass/volume] in Serum or Plasma by Bromocresol purple (BCP) dye binding method 3.8 g/dL 3.2-4.8 N [facility] ital Protein [Mass/volume] in Serum or Plasma 6.9 g/dL 5.7-8.2 [facility] ID Date Data Source [id number] 02/28/2021 02:17:00 PM EDT [facility] COLLECTED @ A COLLECTED @ A COLLECTED @ A Name Value Range Interpretation Code Description Data Radha rce(s) Supporting Document(s) C reactive protein [Mass/volume] in Serum or Plasma Less Than 2.9 0.0 -5.0 N [facility] @Report as less than lower limit ID Date Data Source [id number] 09/02/2020 08:03:00 AM [employer] ([facility]) Name Value Range Interpretation Code Description Data Radha rce(s) Supporting Document(s) PSA 1.02 I/L PSA JL ([facility]) Note: Responsible Observer: KM ID Date Data Source [id number] 09/02/2020 08:03:00 AM EST [facility] ([facility]) Name Value Range Interpretation Code Description Data Radha rce(s) Supporting Document(s) Hemoglobin A1c/Hemoglobin.total in Blood 10.3 na Above high normal Hgba1c [place] ([facility]) Note: Responsible Observer: KM ID Date Data Source [id number] 09/02/2020 08:03:00 AM EST [place] ([facility]) Name Value Range Interpretation Code Description Data Radha rce(s) Supporting Document(s) Cholesterol [Moles/volume] in Pericardial fluid 168 mg/dl Cholesterol [place] ([facility]) Note: Responsible Observer: KM Dir. LDL 104 mg/dl Dir. LDL JL ([facility]) Note: Responsible Observer: KM HDL 41 mg/dl HDL [place] ([facility]) Note: Responsible Observer: KM Triglycerides 98 mg/dl Triglycerides [place] ([facility]) Note: Responsible Observer: KM ID Date Data Source [id number] 09/02/2020 08:03:00 AM EST [place] ([facility]) Name Value Range Interpretation Code Description Data Radha rce(s) Supporting Document(s) Albumin [Mass/volume] in Blood by Bromocresol purple ( BCP) dye binding method 4.2 g/dl Albumin [place] ([facility]) Note: Responsible Observer: KM Alkaline Phos 85 IU/L Alkaline Phos JL ([facility]) Note: Responsible Observer: KM ALT 19 IU/L ALT [place] ([facility]) Note: Responsible Observer: KM AST 18 IU/L AST [place] ([facility]) Note: Responsible Observer: KM Urea nitrogen [Moles/volume] in Blood 18 mg/dl Urea Nitrogen [place] ([facility]) Note: Responsible Observer: KM Chloride [Moles/volume] in Serum, Plasma or Blood 103 mmol/L Chloride [place] ([facility]) Note: Responsible Observer: KM Calcium [Moles/volume] in Urine collected for unspecified durati on 9.5 mg/dl Calcium [place] ([facility]) Note: Responsible Observer: KM Creatinine [Moles/volume] in Vitreous fluid 1.2 mg/dl Creatinine [place] ([facility]) Note: Responsible Observer: KM CO2 27 mmol/L CO2 [place] ([facility]) Note: Responsible Observer: KM EGFR - AfricanAm > 60 N/A EGFR - AfricanAm [facility] Note: Responsible Observer: KM Glucose [Mass/volume] in Urine collected for unspecified duration 8 4 mg/dl Glucose [place] ([facility]) Note: Responsible Observer: KM EGFR - Non AF AM > 60 N/A EGFR - Non AF AM [facility]) Note: Responsible Observer: KM Potassium [Mass/volume] in Blood 4 mmol/L Pot assium [place] ([facility]) Note: Responsible Observer: KM Sodium [Moles/volume] in Serum, Plasma or Blood 143 mmol/L Sodium [place] ([facility]) Note: Responsible Observer: KM Total Bilirubin 0.6 mg/dl Total Bil[facility]) Note: Responsible Observer: KM Total Protein 6.1 g/dl Total Protein [place] ([facility]) Note: Responsible Observer: KM ID Date Data Source [id number] 09/02/2020 08:03:00 AM EST [place] ([facility]) Name Value Range Interpretation Code Description Data Radha rce(s) Supporting Document(s) ACR 144.6 ug/mg Above high normal ACR [place] ( [facility]) Note: Responsible Observer: KM Micro alb 127.0 mg/L Above high normal Micro alb [facility] ([facility]) Note: Responsible Observer: KM Urine Creat 87.8 mg/dl Urine Creat [place] ([facility]) Note: Responsible Observer: KM ID Date Data Source [id number] 05/31/2020 12:58:00 PM EST [place] ([facility]) Name Value Range Interpretation Code Description Data Radha rce(s) Supporting Document(s) Hemoglobin A1c/Hemoglobin.total in Blood 8.2 na Above high normal Hgba1c [place] ([facility]) Note: Responsible Observer: KM ID Date Data Source [id number] 05/31/2020 12:58:00 PM EST [place] ([facility]) Name Value Range Interpretation Code Description Data Radha rce(s) Supporting Document(s) Calcium [Moles/volume] in Urine collected for unspecified durati on 9.1 mg/dl Calcium [place] ([facility]) Note: Responsible Observer: KM Urea nitrogen [Moles/volume] in Blood 21 mg/dl Abo ve high normal Urea Nitrogen [place] ([facility]) Note: Responsible Observer: KM Chloride [Moles/volume] in Serum, Plasma or Blood 108 mmol/L Chloride [place] ([facility]) Note: Responsible Observer: KM CO2 28 mmol/L CO2 [place] ([facility]) Note: Responsible Observer: KM Creatinine [Moles/volume] in Vitreous fluid 1.1 mg/dl Creatinine [place] ([facility]) Note: Responsible Observer: KM EGFR - AfricanAm > 60 N/A EGFR - AfricanAm [facility] Note: Responsible Observer: KM EGFR - Non AF AM > 60 N/A EGFR - Non AF AM [facility] Note: Responsible Observer: KM Glucose [Mass/volume] in Urine collected for unspecified duratio n 119 mg/dl Above high normal Glucose [place] ([facility]) Note: Responsible Observer: KM Potassium [Mass/volume] in Blood 4.2 mmol/L Pot assium [place] ([facility]) Note: Responsible Observer: KM Sodium [Moles/volume] in Serum, Plasma or Blood 138 mmol/L Sodium [place] ([facility]) Note: Responsible Observer: KM ID Date Data Source [id number] 04/09/2020 02:59:13 PM EDT [facility] INFORMATIONPatient MRN Name Date of Age Gend*PT [id number] Marcia Foster 1955 65 years M ---PT Location Admission Date/Time Visit ID Attending Provider --- --- --- --- EPI ID CSN Admitting Provider [id number] ---Addended by: WADE FABIAN on: 04/09/2020 02:59 PM Modules accepted: Orders Name Value Range Interpretation Code Description Data Radha rce(s) Supporting Document(s) ID Date Data Source [id number] 04/09/2020 05:10:00 PM EDT [facility] Testing performed at: [RN[facility] [address] [place] [phone], , Technical Editor: Radha Jacobo MD Name Value Range Interpretation Code Description Data Radha rce(s) Supporting Document(s) QuantiFERON Incubation Incubation performed. [facility] QuantiFERON Criteria Comment [facility] The QuantiFERON-TB Gold Plus result is d etermined mj9t2V9Srtodycacepp the Nil value from either TB antigen (Ag) tube.3q7A4SRej mitogen tube serves as a control for the test. QuantiFERON TB1 Ag Value 0.11 IU/mL [facility] QuantiFERON TB2 Ag Value 0.08 IU/mL [facility] QuantiFERON Nil Value 0.09 IU/mL [facility] QuantiFERON Mitogen Value 9.68 IU/mL [facility] QuantiFERON-TB Gold Plus Negative Negative [facility] ID Date Data Source [id number] 04/08/2020 04:22:00 PM EDT [facility] Name Value Range Interpretation Code Description Data Radha rce(s) Supporting Document(s) RF Quant <0.50 IU/ml 0.00-5.00 [facility] Interpretive guidelines:5y2T4YOfgjfhgp <3.5 9w7G6KJqivblslq 3.5- 5.87h5N2YFttzjqzi >5.07p8G8MMnfr result was obtained with theSchool Admissions Rheumatoid Factor IgM Cristian methodology. Rheumatoidfactor IgM values obtained with different manufacturers' assay methods may not be used interchangeably. The magnitude of the reported IgM levelscannot be correlated to an endpoint titer.[id number] ID Date Data Source [id number] 04/08/2020 04:22:00 PM EDT [facility] Name Value Range Interpretation Code Description Data Radha rce(s) Supporting Document(s) CCP 1.6 Cristian U/ml 0.0-10.0 [facility] Interpretive Foozgjeecf8r9K0D3b6G4KIppyz melanie <43u5P7FFmmcccwzh 7-815e6K8RRmrwontx >877e5I4T3t4A8HYwyy result was obtained with the [employer] Admissions anti-CCP Cristian methodology. Anti-CCP values obtained with different manufacturers' assay methods may not be used interchangeably. The magnitude of the reported levels cannot be correlated to an endpoint titer. ID Date Data Source [id number] 04/08/2020 04:22:00 PM EDT [facility] Name Value Range Interpretation Code Description Data Radha rce(s) Supporting Document(s) DSDNA 24.0 IU/ml 0.0-15.0 H [facility] Interpretive ctekgfnqww2w5O3S3z8G5CWfazm melanie <527o9J2EXuqcbxdcb 10-833c0U9PUropafuz >665l2J1G6n5X6TNpal result was obtained with the School Admissions Cristian method. DsDNA values obtained with different manufacturers' assay methods may not be used interchangeably. [id number] ID Date Data Source [id number] 04/08/2020 04:08:00 PM EDT [facility] Name Value Range Interpretation Code Description Data Radha rce(s) Supporting Document(s) DAVID Positive Negative A [facility] ID Date Data Source [id number] 04/08/2020 04:14:00 PM EDT [facility] Name Value Range Interpretation Code Description Data Radha rce(s) Supporting Document(s) Pattern Homogenous [facility] Titer 320 [facility] ID Date Data Source [id number] 04/07/2020 03:59:00 PM EDT [facility] Name Value Range Interpretation Code Description Data Radha rce(s) Supporting Document(s) Hep C <0.02 Index Value 0.00-1.00 [facility] Index Bhnzn8r4G2U4k1G1VOsf-jyjceoeq <0. 72h5B3HNhzcaoksv 0.81- 0.073p9R0ORvlgnsie >0.151v7F6T3n5G4OAALQ: SAMPLES WITH EQUIVOCAL OR REACTIVE RESULTS WILL BE SENT OUT FOR CONFIRMATION ID Date Data Source [id number] 04/07/2020 03:59:00 PM EDT [facility] Name Value Range Interpretation Code Description Data Radha rce(s) Supporting Document(s) Hep B <0.10 Index Value 0.00-50.00 [facility] Index Pogrn9b5E1N3w0N9LSbv-uftptabx <1.12m1M1UZybshjxc requires confirmation 1-103c5S4ZHnkyedpa requires confirmation >50 2a5Q5J3a7E4JLFDN: SAMPLES WITH REACTIVE RESULTS WILL BE SENT OUT FOR CONFIRMATION ID Date Data Source [id number] 04/07/2020 02:00:00 PM EDT [facility] Name Value Range Interpretation Code Description Data Radha rce(s) Supporting Document(s) ESR 9 mm/kg4j9W9G 0-9 [facility] ID Date Data Source [id number] 04/07/2020 01:14:00 PM EDT [facility] Name Value Range Interpretation Code Description Data Radha rce(s) Supporting Document(s) CRP 0.60 mg/dW9p4J9V 0.10-0.90 [facility] ID Date Data Source [id number] 04/07/2020 01:14:00 PM EDT [facility] Name Value Range Interpretation Code Description Data Radha rce(s) Supporting Document(s) C4 26 mg/dL 17-52 [facility] ID Date Data Source [id number] 04/07/2020 01:14:00 PM EDT [facility] Name Value Range Interpretation Code Description Data Radha rce(s) Supporting Document(s) CHOL 144 mg/nZ2k9W8A 136-200 [facility] Cholesterol Risk Kzyxot6f5U3S6d8O0B Recommended under 200mg/cw3w6A6H Borderline 200-239mg/wu3o6B0O High Risk above 240mg/dl TRIG 179 mg/hK2a3W4C 48-200 [facility] HDL 33 mg/nD9a5S8S 35-92 L [facility] LDL 75 mg/gM2j0C3S 0-140 [facility] NONHDL 110.6 mg/jk3g9H7W 30.0-130.0 [facility] CHOL/HDL 4.3 3.4-24.0 [facility] ID Date Data Source [id number] 04/07/2020 01:14:00 PM EDT [facility] Name Value Range Interpretation Code Description Data Radha rce(s) Supporting Document(s) C3 120 mg/hE8g8V5S 87-200 [facility] ID Date Data Source [id number] 03/31/2020 08:32:00 AM EDT [place] ([facility]) Name Value Range Interpretation Code Description Data Radha rce(s) Supporting Document(s) Calcium [Moles/volume] in Urine collected for unspecified durati on 9.4 mg/dl Calcium [place] ([facility]) Note: Responsible Observer: KM Urea nitrogen [Moles/volume] in Blood 29 mg/dl Abo ve high normal Urea Nitrogen [place] ([facility]) Note: Responsible Observer: KM CO2 26 mmol/L CO2 [place] ([facility]) Note: Responsible Observer: KM Chloride [Moles/volume] in Serum, Plasma or Blood 101 mmol/L Chloride [place] ([facility]) Note: Responsible Observer: KM Creatinine [Moles/volume] in Vitreous fluid 1.2 mg/dl Creatinine [place] ([facility]) Note: Responsible Observer: KM EGFR - AfricanAm > 60 N/A EGFR - AfricanAm [facility] ([facility]) Note: Responsible Observer: KM EGFR - Non AF AM > 60 N/A EGFR - Non AF AM [facility] ([facility]) Note: Responsible Observer: KM Potassium [Mass/volume] in Blood 4.1 mmol/L Pot assium [place] ([facility]) Note: Responsible Observer: KM Glucose [Mass/volume] in Urine collected for unspecified duratio n 146 mg/dl Above high normal Glucose [place] ([facility]) Note: Responsible Observer: KM Sodium [Moles/volume] in Serum, Plasma or Blood 139 mmol/L Sodium [place] ([facility]) Note: Responsible Observer: KM Procedure Social History Code Duration Value Status Description Data Source(s ) Alcohol intake 02/18/2021 12:00:00 AM EDT Lifetime non-drinker (finding) completed Lifetime non-drinker (finding) [facility] Alcohol intake 02/18/2021 12:00:00 AM EDT Lifetime non-drinker (finding) completed Lifetime non-drinker (finding) [facility] Tobacco use and exposure 04/07/2020 12:00:00 AM EDT Never used co mpleted Never used [facility] Smoking 04/07/2020 12:00:00 AM EDT Never smoker completed Never s moker [facility] Vital Signs ID Date Data Source UNK Name Value Range Interpretation Code Description Data Source(s) Systolic blood pressure 148 mm[Hg] 148 mm[Hg] M [facility] ([facility]) Diastolic blood pressure 88 mm[Hg] 88 mm[Hg] [facility] ([facility]) Body height 70 [in_i] 70 [in_i] [facility] ([facility]) 5'10" Body weight 220.00 [lb_av] 220.00 [lb_av] [facility] Body mass index (BMI) [Ratio] 31.6 kg/m2 31.6 k g/m2 [facility] ([facility]) [facility] body weight 166 [lb_av] 166 [lb_av] [facility] Body weight 99.792 kg 99.792 kg [facility] ([facility]) Body surface area Derived from formula 2.17 m2 2.17 m2 [facility] ([facility]) Systolic blood pressure 130 mm[Hg] 130 mm[Hg] [place] ([facility]) Diastolic blood pressure 70 mm[Hg] 70 mm[Hg] [place] ([facility]) Heart rate 72 /min 72 /min [place] ([facility]) Respiratory rate 18 /min 18 /min [place] ([facility]) Body height 68.25 [in_i] 68.25 [in_i] [place] ([facility]) Body weight 223 [lb_av] 223 [lb_av] [place] ([facility]) Body mass index (BMI) [Ratio] 33.7 kg/m2 33.7 k g/m2 [place] ([facility]) Body surface area Derived from formula 2.15 m2 2.15 m2 [place] ([facility]) Oxygen saturation in Arterial blood by Pulse oximetry 96 % 96 % [place] ([facility]) Diastolic blood pressure 70 mm[Hg] 70 mm[Hg] [place] ([facility]) Heart rate 72 /min 72 /min [place] ([facility]) Respiratory rate 18 /min 18 /min [place] ([facility]) Body height 68.25 [in_i] 68.25 [in_i] [place] ([facility]) Body weight 223 [lb_av] 223 [lb_av] [place] ([facility]) Body mass index (BMI) [Ratio] 33.7 kg/m2 33.7 k g/m2 [place] ([facility]) Oxygen saturation in Arterial blood by Pulse oximetry 96 % 96 % [place] ([facility]) Systolic blood pressure 130 mm[Hg] 130 mm[Hg] [facility] Body surface area Derived from formula 2.15 m2 2.15 m2 [place] ([facility]) Systolic blood pressure 130 mm[Hg] 130 mm[Hg] [facility] ([facility]) Diastolic blood pressure 70 mm[Hg] 70 mm[Hg] [place] ([facility]) Heart rate 72 /min 72 /min [place] ([facility]) Respiratory rate 18 /min 18 /min [place] ([facility]) Body height 68.25 [in_i] 68.25 [in_i] [place] ([facility]) Body weight 223 [lb_av] 223 [lb_av] [place] ([facility]) Body mass index (BMI) [Ratio] 33.7 kg/m2 33.7 k g/m2 [place] ([facility]) Body surface area Derived from formula 2.15 m2 2.15 m2 [place] ([facility]) Oxygen saturation in Arterial blood by Pulse oximetry 96 % 96 % [place] ([facility]) Systolic blood pressure 124 mm[Hg] 124 mm[Hg] [facility] Diastolic blood pressure 60 mm[Hg] 60 mm[Hg] [place] ([facility]) Body weight 212 [lb_av] 212 [lb_av] [place] ([facility]) Heart rate 64 /min 64 /min [place] ([facility]) Respiratory rate 22 /min 22 /min [place] ([facility]) Body height 68.25 [in_i] 68.25 [in_i] [place] ([facility]) Body mass index (BMI) [Ratio] 32.0 kg/m2 32.0 k g/m2 [place] ([facility]) Body surface area Derived from formula 2.10 m2 2.10 m2 [place] ([facility]) Systolic blood pressure 130 mm[Hg] 130 mm[Hg] [facility] Diastolic blood pressure 58 mm[Hg] 58 mm[Hg] [place] ([facility]) Heart rate 64 /min 64 /min [place] ([facility]) Respiratory rate 22 /min 22 /min [place] ([facility]) Body height 68.25 [in_i] 68.25 [in_i] [place] ([facility]) Body weight 212 [lb_av] 212 [lb_av] [place] ([facility]) Body mass index (BMI) [Ratio] 32.0 kg/m2 32.0 k g/m2 [place] ([facility]) Body surface area Derived from formula 2.10 m2 2.10 m2 [place] ([facility]) Patient Treatment Plan of Care Planned Activity Planned Date Details Description Data Source (s) Adalimumab (Humira Pen) 40 MG/0.4ML PNKT 02/18/2021 12:00:00 AM EDT [facility] Diclofenac Sodium 0.01 MG/MG Topical Gel 02/18/2021 12:00:00 AM EDT [facility] Adalimumab (HUMIRA PEN) 40 MG/0.4ML PNKT 10/22/2020 12:00:00 AM EDT [facility] Diclofenac Sodium 0.01 MG/MG Topical Gel 10/20/2020 12:00:00 AM EDT [facility] gabapentin 300 MG Oral Capsule 09/03/2020 12:00:00 AM EST [place] ([facility]) empagliflozin 25 MG Oral Tablet [Jardiance] 09/03/2020 12:00:00 AM [facility]) gabapentin 300 MG Oral Capsule 08/26/2020 12:00:00 AM [facility]) gabapentin 300 MG Oral Capsule 06/14/2020 12:00:00 AM [facility]) Metoprolol Tartrate 50 MG Oral Tablet 06/12/2020 12:00:00 AM [facility]) Simvastatin 10 MG Oral Tablet 06/12/2020 12:00:00 AM [facility]) gabapentin 300 MG Oral Capsule 06/01/2020 12:00:00 AM [facility]) 3 ML Insulin Glargine 100 UNT/ML Pen Injector [Lantus] 04/14/2020 12:00:00 AM [facility] ([facility]) Insulin Glargine 100 UNT/ML Injectable Solution [Lantu s] 04/13/2020 12:00:00 AM [facility] ([facility]) Metformin hydrochloride 1000 MG Oral Tablet 03/17/2020 12:00:00 AM [facility]) empagliflozin 10 MG Oral Tablet [Jardiance] 12/25/2019 12:00:00 AM [facility]) Naproxen 500 MG Oral Tablet 09/29/2019 12:00:00 AM [facility]) gabapentin 300 MG Oral Capsule 07/01/2019 12:00:00 AM [facility]) Simvastatin 10 MG Oral Tablet 06/27/2019 12:00:00 AM [facility]) Metoprolol Tartrate 50 MG Oral Tablet 06/27/2019 12:00:00 AM [facility]) FreeStyle Lite Test In Vitro Strip 06/19/2019 12:00:00 AM [facility]) Famotidine 20 MG Oral Tablet 05/30/2019 12:00:00 AM [facility]) 3 ML Insulin Glargine 100 UNT/ML Pen Injector [Lantus] 02/03/2019 12:00:00 AM [facility] ([facility]) tadalafil 5 MG Oral Tablet [Cialis] 06/11/2018 12:00:00 AM [facility] ([facility])
[2021-05-19] MEDS ORDERED: propofoL 200 MG/20 ML VIAL As Ordered ONE (07:02)
[2021-05-19] MEDS ORDERED: LIDOCAINE 2% 100MG/5ML SDV (FOR ANES.) As Ordered ONE (07:02)
--- NOTE | 2021-05-19 08:14 | ROOR ---
Patient Name: Kameron Foster Procedure Date: 05/19/2021 7:31 AM Date of : 1955 Age: 66 Room: [facility] Gender: Male Note Status: Finalized Procedure: Upper GI endoscopy Indications: Dyspepsia Providers: William Barros MD Referring MD: Mayra BARBOSA MD Requesting Provider: Medicines: Monitored Anesthesia Care Complications: No immediate complications. Procedure: Pre-Anesthesia Assessment: - Prior to the procedure, a History and Physical was performed, and patient medications and allergies were reviewed. The patient is competent. The risks and benefits of the procedure and the sedation options and risks were discussed with the patient. All questions were answered and informed consent was obtained. Patient identification and proposed procedure were verified by the physician, the nurse and the anesthesiologist in the procedure room. Mental Status Examination: alert and oriented. Airway Examination: normal oropharyngeal airway and neck mobility. Respiratory Examination: clear to auscultation. CV Examination: normal. Prophylactic Antibiotics: The patient does not require prophylactic antibiotics. Prior Anticoagulants: The patient has taken no previous anticoagulant or antiplatelet agents. ASA Grade Assessment: II - A patient with mild systemic disease. After reviewing the risks and benefits, the patient was deemed in satisfactory condition to undergo the procedure. The anesthesia plan was to use monitored anesthesia care (MAC). Immediately prior to administration of medications, the patient was re-assessed for adequacy to receive sedatives. The heart rate, respiratory rate, oxygen saturations, blood pressure, adequacy of pulmonary ventilation, and response to care were monitored throughout the procedure. The physical status of the patient was re-assessed after the procedure. The Endoscope was introduced through the mouth, and advanced to the second part of duodenum. The upper GI endoscopy was accomplished without difficulty. The patient tolerated the procedure well. Findings: Abnormal motility was noted in the middle third of the esophagus, in the lower third of the esophagus and at the lower esophageal sphincter. The cricopharyngeus was normal. The distal esophagus/lower esophageal sphincter is spastic, but gives up passage to the endoscope. Biopsies were obtained from the proximal and distal esophagus with cold forceps for histology of suspected eosinophilic esophagitis. A TTS dilator was passed through the scope. Dilation with an 18-19-20 mm balloon dilator was performed to 20 mm. The dilation site was examined following endoscope reinsertion and showed moderate improvement in luminal narrowing and no bleeding, mucosal tear or perforation. Diffuse moderate inflammation characterized by erythema, friability and granularity was found in the gastric body and in the gastric antrum. Biopsies were taken with a cold forceps for Helicobacter pylori testing. Biopsies were taken with a cold forceps for histology. Verification of patient identification for the specimen was done by the physician and nurse using the patient's name, date and medical record number. The duodenal bulb and second portion of the duodenum were normal. Impression: - Abnormal esophageal motility, suspicious for achalasia. Biopsied. Dilated. - Gastritis. Biopsied. - Normal duodenal bulb and second portion of the duodenum. Recommendation: - Patient has a contact number available for emergencies. The signs and symptoms of potential delayed complications were discussed with the patient. Return to normal activities tomorrow. Written discharge instructions were provided to the patient. - High fiber diet. - Continue present medications. - Await pathology results. - Perform an esophagram if symptoms persist. - Repeat upper endoscopy in 6 months to evaluate the response to therapy and depending on the symptoms and clinical response. - Return to GI clinic if persistent symptoms or new symptoms. - Telephone GI clinic for pathology results in 2 weeks. - Return to primary care physician. 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 All rights reserved. The codes documented in this report are preliminary and upon cpc coder review may be revised to meet current compliance requirements. William Barros MD William Barros MD 05/19/2021 8:14:18 AM Electronically signed by William Barros MD Number of Addenda: 0 Note Initiated On: 05/19/2021 7:31 AM Estimated Blood Loss: Estimated blood loss was minimal.
[2021-05-19 08:20] VITALS: BP 152/82
== END 2021-05-19 08:34 | disposition home or self-care (01) ==
LOC: M OPP 06:24
PROVIDERS: ATTEND Internal Medicine Gastroenterology
DX: R13.10 Dysphagia, unspecified (principal); R12 Heartburn; E11.9 Type 2 diabetes mellitus without complications; I10 Essential (primary) hypertension; Z79.899 Other long term (current) drug therapy